=== PATIENT | male | born 1945 | race Caucasian/White ===

== ENCOUNTER 2020-07-30 15:55 | Inpatient (IN) | payer MEDICARE, OTHER, SELFPAY ==
[2020-07-30] VITALS (9 sets, daily range): BP systolic 106–140; BP diastolic 59–89; PULSE 74–95; RESP 13–23; TEMP 36.3; O2SAT 84–99; BMI 26.4
--- NOTE | ~2020-07-30 | CT_ITS ---
EXAMINATION: CTA chest PE protocol EXAM DATE: 07/31/2020 14:06 INDICATION: Hypoxia. COVID 19 positive. TECHNIQUE: Spiral CTA of the chest (pulmonary arteries) was performed with 100 cc Omnipaque 350 intr avenous contrast injection. Images were acquired during the pulmonary arterial phase. Coronal maxi mum intensity projection 3D-reconstructions were created by the technologist on dedicated workstation . Axial, coronal and sagittal reformatted images were reviewed. The dose-length product (DLP) for t his examination was 679.75 mGy-cm. The exposure was tailored according to patient size (auto mA exp osure control), and iterative reconstruction (ASIR) was used as additional dose reduction technique. There is no prior study for comparison. FINDINGS: There are no pulmonary emboli in the 1st through 3rd order (central and interlobar) pulmon joseph arteries. Some loss of attenuation in the basilar segmental pulmonary from respiratory motion, t hese regions not confidently evaluated. No Intraluminal filling defects identified. No thoracic aor tic dissection. Extensive left lung, moderate right lung groundglass airspace disease, infection and /or edema. There are no pleural or pericardial effusions. Tracheobronchial tree is patent. Ther e is no mediastinal, hilar or axillary lymphadenopathy. There is no pneumothorax. Heart normal in size. No evidence of coronary arterial calcification. Upper abdomen is unremarkable. There is t horacic spondylosis without osteoblastic or osteolytic lesions identified. IMPRESSION: 1. Limited segmental evaluation, but no pulmonary emboli are suspected. 2. Diffuse groundglass density acute airspace disease, infection and/or edema. Reviewed, dictated and finalized at location A.
--- NOTE | ~2020-07-30 | XR_ITS ---
EXAMINATION: XR chest 1V portable INDICATION: COVID 19 pneumonia TECHNIQUE: Portable AP chest at 0511 hours COMPARISON: 08/08/2020 FINDINGS: The endotracheal tube ends approximately 5.6 cm above the ministerio. The nasogastric tube is f ollowed as far as the stomach. Its tip is beyond the inferior margin of the radiograph. A right inter nal jugular central venous catheter ends with its tip in the superior vena cava. A left upper extremi ty PICC ends with its tip in the proximal superior vena cava. There are diffuse opacities in all lung zones with interval worsening in the mid and upper lung zones. There is no pleural effusion or pneum othorax. The cardiomediastinal silhouette is stable. IMPRESSION: 1. Diffuse lung disease with interval worsening, consistent with pneumonia and/or pulmonary edema and /or acute respiratory distress syndrome (ARDS). Reviewed, dictated and finalized at location A. IMPRESSION: 1. Diffuse lung disease with interval worsening, consistent with pneumonia and/ or pulmonary edema and/or acute respiratory distress syndrome (ARDS).
--- NOTE | ~2020-07-30 | XR_ITS ---
EXAMINATION: XR chest 1V portable INDICATION: COVID 19 pneumonia TECHNIQUE: Portable AP chest at 0526 hours COMPARISON: 08/09/2020 FINDINGS: The endotracheal tube ends approximately 6.1 cm above the ministerio. The nasogastric tube is f ollowed as far as the stomach. Its tip is beyond the inferior margin of the radiograph. A left upper showed a PICC ends with its tip in the proximal superior vena cava. A right internal jugular central venous catheter ends in the midsuperior vena cava. Diffuse opacities persist in all lung zones with i nterval worsening. There is no pleural effusion or pneumothorax. The cardiomediastinal silhouette is stable. IMPRESSION: 1. Diffuse lung disease with interval worsening in all lung zones, consistent with pneumonia and/or p ulmonary edema and/or acute respiratory distress syndrome (ARDS). Reviewed, dictated and finalized at location A. IMPRESSION: 1. Diffuse lung disease with interval worsening in all lung zones, consistent w ith pneumonia and/or pulmonary edema and/or acute respiratory distress syndrome (ARDS).
--- NOTE | ~2020-07-30 | XR_ITS ---
XR abdomen NG/feed tube insert DATE: 08/05/2020 09:44 INDICATION: Orogastric tube placement TECHNIQUE: Portable supine AP view COMPARISON: None FINDINGS: The orogastric tube extends into the gastric fundus a short distance, the proximal spine po rt in the lower chest. Advancement of the tube is recommended. Nonspecific bowel gas pattern, without apparent obstruction. IMPRESSION: Orogastric tube in very proximal stomach, proximal side-port in lower chest. Tube advance ment is recommended. Reviewed, dictated and finalized at Location A. Reviewed, dictated and finalized at location A. IMPRESSION: Orogastric tube in very proximal stomach, proximal side-port in low er chest. Tube advancement is recommended.
--- NOTE | ~2020-07-30 | XR_ITS ---
XR chest 1V portable 08/03/2020 14:46 Indication: Pneumonia. Shortness of breath Procedure: AP portable chest Comparison: 07/30/2020 Findings: Patchy bilateral airspace disease, left greater than right, compatible with pneumonia. No s ignificant effusion or pneumothorax. Calcified granuloma right lung base. Impression: 1: Patchy bilateral asymmetric airspace disease, compatible with pneumonia. Reviewed, dictated and finalized at location B. Impression: 1: Patchy bilateral asymmetric airspace disease, compatible with pneumonia.
--- NOTE | ~2020-07-30 | XR_ITS ---
EXAMINATION: XR chest PICC line DATE: 08/04/2020 16:59 INDICATION: PICC line placement TECHNIQUE: frontal view of the chest was obtained. COMPARISON: Chest radiograph dated 08/03/2020 FINDINGS: Left upper extremity peripherally inserted central venous catheter (PICC) which extends across the mi dline with distal tip likely at the junction of the left brachiocephalic vein and superior vena cava. Pulmonary vascular congestion with diffuse increased interstitial pattern throughout both lungs. Agai n seen are bilateral patchy groundglass opacities scattered throughout both lungs. Calcified nodule a t the right lung base and calcified right hilar lymph node consistent with old granulomatous disease. The cardiomediastinal silhouette is normal. IMPRESSION: 1. Left upper extremity PICC line tip at the junction of the left brachiocephalic vein and superior v ammon cava. 2. Diffuse increased interstitial pattern and patchy groundglass opacities in both lungs which could represent pulmonary edema and/or pneumonia. Reviewed, dictated and finalized at location A. IMPRESSION: 1. Left upper extremity PICC line tip at the junction of the left brachiocephal ic vein and superior vena cava. 2. Diffuse increased interstitial pattern and patchy groundglass opacities in b oth lungs which could represent pulmonary edema and/or pneumonia.
--- NOTE | ~2020-07-30 | XR_ITS ---
EXAMINATION: XR chest 1V portable INDICATION: COVID 19 pneumonia TECHNIQUE: Portable AP chest at 0533 hours COMPARISON: 08/06/2020 FINDINGS: The endotracheal tube ends approximately 6.9 cm above the ministerio. The nasogastric tube is f ollowed as far as the stomach. Its tip is beyond the inferior margin of the radiograph. There are sta ble diffuse opacities in all lung zones, left greater than right. No pleural effusion or pneumothorax is identified. A left upper extremity PICC ends with its tip in the proximal superior vena cava. IMPRESSION: 1. Stable diffuse lung disease, consistent with pneumonia and/or pulmonary edema and/or acute respira tory distress syndrome (ARDS). Reviewed, dictated and finalized at location A. IMPRESSION: 1. Stable diffuse lung disease, consistent with pneumonia and/or pulmonary maco a and/or acute respiratory distress syndrome (ARDS).
--- NOTE | ~2020-07-30 | XR_ITS ---
XR chest ET placement DATE: 08/05/2020 09:44 INDICATION: ET and NG tube placement TECHNIQUE: Portable AP view on 08/05/2020 at 0930 hours COMPARISON: 08/05/2020 portable AP chest at 0528 hours FINDINGS: Interval placement of ET tube, distal tip 5.4 cm above ministerio. [place] range is 205 cm. An NG tube is noted in the proximal stomach. Left upper stomach the catheter tip overlies the proximal superior vena cava. Patchy bilateral mid and lower lung zone infiltrates, left greater than right. Heart size appears within normal range. No pneumothorax is noted. IMPRESSION: ET and NG tube placement Persistent patchy bilateral pulmonary infiltrates Reviewed, dictated and finalized at Location A. Reviewed, dictated and finalized at location A.
--- NOTE | ~2020-07-30 | XR_ITS ---
EXAMINATION: XR chest 1V portable INDICATION: COVID 19 pneumonia TECHNIQUE: Portable AP chest at 0139 hours COMPARISON: 08/07/2020 FINDINGS: The endotracheal tube ends approximately 6.1 cm above the ministerio. The nasogastric tube is f ollowed as far as the stomach. Its tip is beyond the inferior margin of the radiograph. Patchy bilate ral airspace opacities persist in all lung zones with slight improvement in the upper lung zones. The re is no pleural effusion or pneumothorax. The cardiomediastinal silhouette is stable. A left upper e xtremity PICC ends in the proximal superior vena cava. IMPRESSION: 1. Diffuse lung disease with interval improvement in the upper lung zones, consistent with pneumonia and/or pulmonary edema and/or acute respiratory distress syndrome (ARDS). Reviewed, dictated and finalized at location A. IMPRESSION: 1. Diffuse lung disease with interval improvement in the upper lung zones, cons istent with pneumonia and/or pulmonary edema and/or acute respiratory distress syndrome (ARDS).
--- NOTE | ~2020-07-30 | XR_ITS ---
EXAMINATION: XR chest 1V portable EXAM DATE: 07/30/2020 16:32 INDICATION: hypoxia, COVID +, fever, chills shortness of breath, decreased appetite. TECHNIQUE: Portable AP frontal chest x-ray was obtained. There is no prior study for comparison. FINDINGS: Ill-defined left mid and lower lung zone airspace disease, could be combination of infectio n and atelectasis. Right basilar granuloma. No pneumothorax or pleural effusion. The cardiomediastina l silhouette is prominent but magnified on this AP technique. There are no osseous abnormalities iden tified. IMPRESSION: 1. Ill-defined left mid and lower lung zone opacity probably infection and atelectasis. Reviewed, dictated and finalized at location A. IMPRESSION: 1. Ill-defined left mid and lower lung zone opacity probably infection and at electasis.
--- NOTE | ~2020-07-30 | XR_ITS ---
EXAMINATION: XR chest port-a-cath/central INDICATION: Central line insertion TECHNIQUE: Portable AP view of the chest is obtained at 1126 hours COMPARISON: 0139 hours FINDINGS: A right internal jugular central venous catheter is been inserted which ends with its tip i n the superior vena cava. The endotracheal tube ends approximately 8.0 cm above the ministerio. The nasog astric tube is followed as far as the stomach. Its tip is beyond the inferior margin of the radiograp h. A left upper extremity PICC ends with its tip in the proximal superior vena cava. Patchy bilateral airspace opacities persist in all lung zones without significant change. There is no pleural effusio n or pneumothorax. The cardiomediastinal silhouette is stable. IMPRESSION: 1. Right internal jugular catheter inserted ending in the superior vena cava without pneumothorax. Ot herwise no significant change. Reviewed, dictated and finalized at location A. IMPRESSION: 1. Right internal jugular catheter inserted ending in the superior vena cava wi thout pneumothorax. Otherwise no significant change.
--- NOTE | ~2020-07-30 | XR_ITS ---
XR chest 1V portable DATE: 08/05/2020 05:56 INDICATION: Covid 19 pneumonia TECHNIQUE: Portable AP chest on 08/05/2020 at 0527 hours COMPARISON: 08/04/2020 portable AP chest at 1656 hours FINDINGS: There is no significant interval change in diffuse interstitial prominence and patchy mid a nd lower lung infiltrates since 08/04/2020. Normal heart size. There is slight if any pleural effusion. No pneumothorax. Left upper extremity PIC catheter tip situated near origin of superior vena cava. IMPRESSION: Bilateral infiltrates; no significant change since 08/04/2020 Reviewed, dictated and finalized at location A.
--- NOTE | ~2020-07-30 | XR_ITS ---
EXAMINATION: XR chest 1V portable INDICATION: COVID 19 pneumonia, acute respiratory failure TECHNIQUE: Portable AP chest at 0524 hours COMPARISON: 08/05/2020 FINDINGS: The endotracheal tube ends approximately 5.8 cm above the ministerio. A nasogastric tube is in the stomach. Diffuse opacities persist in all lung zones, left greater than right, without significan t change. There is no pleural effusion or pneumothorax. A left upper extremity PICC ends with its tip in the proximal superior vena cava. IMPRESSION: 1. Stable diffuse lung disease, consistent with pneumonia and/or pulmonary edema and/or acute respira tory distress syndrome (ARDS). Reviewed, dictated and finalized at location A. IMPRESSION: 1. Stable diffuse lung disease, consistent with pneumonia and/or pulmonary maco a and/or acute respiratory distress syndrome (ARDS).
--- NOTE | 2020-07-30 16:22 | ECG_ITS ---
Measurements Intervals [place] Rate: 86 P: 178 MT: 138 QRS: 222 QRSD: 98 T: 165 QT: 347 QTc: 416 Interpretive Statements SINUS RHYTHM ARM LEADS REVERSED DELAYED PRECORDIAL R/S TRANSITION ATYPICAL ECG Electronically Signed On 07-30-2020 16:36:16 CDT by Jigar Bowen D.O.
[2020-07-30 18:30] LABS: Basophils Percent Auto 0.1 % (0.2-1.2); Hematocrit 48.8 % (42.0-52.0); Hemoglobin 16.9 g/dL (14.0-18.0); Immature Granulocyte Absolute 0.04 K/mm3 (0.00-0.031); Immature Granulocyte Percent A 0.6 % (0-0.5); Lymphocytes Absolute Auto 0.77 K/mm3 (0.9-3.2); Lymphocytes Percent Auto 10.6 % (18.3-44.2); Mean Corpuscular HGB Conc 34.6 g/dl (32-36); Mean Corpuscular Hemoglobin 31.7 pg (26-34); Mean Corpuscular Volume 91.6 fl (80-100); Mean Platelet Volume 11.2 fl (7.4-10.4); Monocytes Absolute Auto 0.3 K/mm3 (0.1-0.6); Monocytes Percent Auto 3.7 % (2.6-8.5); Neutrophils Absolute Auto 6.2 K/mm3 (1.3-6.7); Platelet Count Result 165 k/mm3 (150-375); Red Blood Count 5.33 M/mm3 (4.6-6.20); Red Cell Distribution Width 12.3 % (11.5-14.5); White Blood Count 7.2 K/mm3 (4.5-10.0)
[2020-07-30 18:39] LABS: INR 0.9; Prothrombin Time 12.9 Seconds (11.1-14.7)
[2020-07-30 18:40] LABS: Partial Thromboplastin Time 31.8 SECONDS (22.3-36.8)
[2020-07-30 18:42] LABS: Lactic Acid Reflex 1.4 mmol/L (0.7-2.1)
[2020-07-30 18:44] LABS: Alanine Aminotransferase 31 U/L (4-50); Albumin Level 3.5 g/dL (3.5-5.1); Alkaline Phosphatase 60 U/L (38-126); Anion Gap 4 mmol/L (8-16); Aspartate Amino Transferase 62 U/L (17-59); Bilirubin,Total 1.1 mg/dL (0.2-1.3); Blood Urea Nitrogen 34 mg/dL (9-20); CRP 6.3 mg/dL (<1.0); Calcium 8.4 mg/dL (8.4-10.2); Carbon Dioxide 31 mmol/L (22-30); Chloride 98 mmol/L (98-107); Estimated CRCL calculation 58 ml/min; Estimated Glomerular Filt Rate 59; Glucose 101 mg/dL (75-110); Sodium 133 mmol/L (137-145)
[2020-07-30 19:09] LABS: Alveolar/Arterial O2 Gradient 213.2 mmHg; Base Excess ABG 0.2 mEq/l (+/-2.0); Fractional Inspired Oxygen 44 %; HCO3 ABG 23.6 mEq/l (22.0-26.0); Oxygen Content ABG 21.4 %vol (16.0-22.0); Oxygen Saturation ABG 92.5 % (95.0-100.0); Oxyhemoglobin 90.9 % THb (90.0-100.0); PCO2 ABG 34.9 mmHg (35.0-45.0); PO2 ABG 60.7 mmHg (80.0-100.0); PO2 FiO2 Ratio Arterial Blood 1.38 %; Total Hemoglobin 16.8 g/dL (12.0-18.0); pH ABG 7.448 (7.350-7.450)
[2020-07-30 19:10] LABS: Device NASAL CANNULA; Modified Allen's Test Pass; Site Drawn RIGHT RADIAL
--- NOTE | 2020-07-30 19:19 | PC.NURSE ---
Assumed care of pt. at this time. Report from MARIELOS Zhang
--- NOTE | 2020-07-30 19:34 | WPDEDEXPGENP ---
HPI - General Ped General Chief complaint: Fever Stated complaint: covid +, 20 lb weight loss Time Seen by Provider: 07/30/20 17:16 Source: patient Mode of arrival: ambulatory Limitations: no limitations History of Present Illness HPI narrative: Patient 75 years old white male this is positive for COVID-19 this morning. Patient still me that he been sick with respiratory symptoms, fever, chills and coughing for the last 2 weeks. Was seen at urgent care on July 21 and was started on Z-Micky at that time. Patient denies exposure to anybody known having COVID-19. Patient declined COVID-19 vaccination because he have some reaction to the flu vaccine. Patient denies smoking Related Data Home Medications Medication Instructions Recorded Confirmed loratadine 10 mg 07/30/20 omeprazole 20 mg PO DAILY 07/30/20 07/30/20 Allergies Allergy/AdvReac Type Severity Reaction Status Date / Time tetracycline Allergy Chills Verified 07/30/20 16:15 Pediatric Review of Systems : Review of Systems: CONSTITUTIONAL: Denies fever, chills, or sweats. EYES: Denies visual changes, redness, or discharge. ENT: Denies rhinorrhea, congestion, sore throat, or otalgia. CARDIOVASCULAR: Denies chest pain, palpitations, or edema. RESPIRATORY: Denies cough or dyspnea. GASTROINTESTINAL: Denies abdominal pain, nausea, vomiting, or diarrhea. GENITOURINARY: Denies dysuria or hematuria. SKIN: Denies rash or itching. MUSCULOSKELETAL: Denies back pain, joint pain, or myalgia. NEUROLOGIC: Denies headache, numbness, or weakness. PSYCHIATRIC: Denies anxiety or depression. PMFSH Social History Social History Gender identity (if verbalized by the patient): Male Pediatric Exam Narrative: Physical exam: General appearance: Well-developed, well-nourished, patient looks comfortable, not in pain or distress. No family member at the bedside Skin: Normal color Head: Normocephalic, nontraumatic Eyes: Clear conjunctiva ENT: Oropharynx normal, ears normal, nose normal Neck: Supple, nontender Chest and respiratory: Airway patent, no respiratory distress, mild diminishment of air entry bilaterally mainly at the bases. No rhonchi, no wheezing Heart: Regular rate/rhythm Abdomen: Soft, nontender, no organomegaly, quiet bowel sounds Vascular: Normal peripheral pulses, normal capillary refill. 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, no gross motor deficit Course Course Emergency Course: Stable Vital Signs Vital signs: Vital Signs Temperature 36.3 C L 07/30/20 15:58 Pulse Rate 95 07/30/20 15:58 Respiratory Rate 20 07/30/20 15:58 Blood Pressure 110/59 L 07/30/20 15:58 Pulse Oximetry 88 L 07/30/20 15:58 Temperature 36.3 C L 07/30/20 15:58 Pulse Rate 76 07/30/20 19:18 Respiratory Rate 17 07/30/20 18:00 Blood Pressure 117/74 07/30/20 19:18 Pulse Oximetry 92 07/30/20 19:18 Medical Decision Making Vital Signs Vital Signs: Vital Signs Temperature 36.3 C L 07/30/20 15:58 Pulse Rate 95 07/30/20 15:58 Respiratory Rate 20 07/30/20 15:58 Blood Pressure 110/59 L 07/30/20 15:58 Pulse Oximetry 88 L 07/30/20 15:58 Temperature 36.3 C L 07/30/20 15:58 Pulse Rate 76 07/30/20 19:18 Respiratory Rate 17 07/30/20 18:00 Blood Pressure 117/74 07/30/20 19:18 Pulse Oximetry 92 07/30/20 19:18 Lab Data Result diagrams: 07/30/20 18:23 07/30/20 18:23 Labs: Lab Results 07/30/20 07/30/20 07/30/20 Range/Units 18:23 18:23 18:23 WBC 7.2 (4.5-10.0) K/mm3 RBC 5.33 (4.6-6.20)
[2020-07-30] MEDS: SODIUM CHLORIDE 0.9% IV 1,000 ML 500 ML IV CONT (20:32)
--- NOTE | 2020-07-30 20:33 | PC.NURSE ---
called pharmacy about medication. States they are in the process now to make it.
--- NOTE | 2020-07-30 20:35 | PC.NURSE ---
Spoke w/ pt. Haydee to update on pt. status. [phone]
[2020-07-30] MEDS: REMDESIVIR 200 MG/NS 250 ML 200 MG/250 ML BAG 250 MG IVPB (21:03)
[2020-07-30 22:12] LABS: Alanine Aminotransferase 34 U/L (4-50); Estimated CRCL calculation 63 ml/min; Estimated Glomerular Filt Rate > 60
[2020-07-30 22:17] LABS: INR 0.9; Prothrombin Time 13.1 Seconds (11.1-14.7)
--- NOTE | 2020-07-30 22:34 | ADMGEN ---
This patient, Gage Witt, was admitted to IMU Room 210-01, at 2225 from the Emergency department. Patient/family oriented to hospital policies and general routines including ID bracelet, bed and alarms, visiting hours, pain management, procedures, bathroom and other care routines, personal items, smoking policy, room service/diet, and visiting hours. Information on how to activate the Rapid Response Team has been discussed. Patient/Family are encouraged to report perceived risks to care and to ask questions if they do not understand what they are told or what they should do.
--- NOTE | 2020-07-30 22:37 | ADMGEN ---
This patient, Gage Witt, was admitted to IMU Room 210-01. Patient/family oriented to hospital policies and general routines including ID bracelet, bed and alarms, visiting hours, pain management, procedures, bathroom and other care routines, personal items, smoking policy, room service/diet, and visiting hours. Information on how to activate the Rapid Response Team has been discussed. Patient/Family are encouraged to report perceived risks to care and to ask questions if they do not understand what they are told or what they should do. Melodie ARCEO 2200 arrived
--- NOTE | 2020-07-30 23:58 | PM.IMHP ---
H&P: HPI History of Present Illness Date/Time: 07/30/20 23:30 this is a 75-year-old male patient who has no past medical history except for some acid reflux. The patient stated that he has been feeling poorly for at least 2 weeks. He said he has been running fevers on and off for 2 weeks. The patient thought that he just had an upper respiratory infection and did not seek any medical attention for this. The patient has been taking Tylenol at home. The patient stated that he is fever and chills. With a T-max of 101?. He has a cough and body aches. The patient is feeling very weak. The patient went to an urgent care facility about a week ago and was given a Z-Micky and offered a COVID test at that time and the patient refused..july 21 the patient was started on the Z-Micky. The patient did not receive his COVID-19 vaccine because he was afraid he would have a reaction to it since he had a reaction to the flu vaccine. Patient is a nonsmoker. The patient denies any exposure to COVID-19. The patient stated that his went to [facility] a COVID test which was a rapid home test and it came back positive. On REM does severe and Tylenol.Radiology is ill-defined left mid and lower lung zone opacities probably infection in atelectasis. When the patient came To the emergency room his pulse ox was 84-88%. The patient was placed on 6 L per nasal cannula. The patient had gotten up in his room and desatted down to 75%. We had to bump up to 15 L per nasal cannula. The patient had attempted to get out of bed and we explained to the patient he needs to stay in bed and be on bed rest. We offered him a Rodriguez catheter. We also explained that he needed to be prone every 2 hours. The patient is quite anxious at this time. Services on the date of service of 07/30/2020. Chief Complaint: Dyspnea with positive COVID. Review of Systems Review of Systems: All systems reviewed & are unremarkable except as noted in HPI and below Constitutional: Constitutional: Reports as per HPI and Reports no additional constitutional complaints Eyes: Eyes: Reports as per HPI and Reports no additional eye complaints ENT: Reports system reviewed and no additional complaints, except as documented and Reports Normal hearing present Cardiovascular: Cardiovascular: Reports no additional cardiovascular complaints Respiratory: Respiratory: Reports no additional respiratory complaints and Reports no additional respiratory complaints Gastrointestinal: Gastrointestinal: Reports as per HPI and Reports no additional gastrointestinal complaints Musculoskeletal: Musculoskeletal: Reports no additional musculoskeletal complaints Integumentary/Breasts: Skin/Breast: Reports system reviewed and no additional complaints, except as docu and Reports as per HPI Neurologic: Reports system reviewed and no additional complaints, except as documented, Reports as per HPI and Reports Normal hearing present Psychiatric: Psychiatric: Reports no additional psychiatric complaints and Reports as per HPI Endocrine: Endocrine: Reports no additional endocrine complaints Hematologic/Lymphatic: Hematologic/Lymphatic: Reports no additional hematologic/lymphatic complaints Allergic/Immunologic: Allergic/Immunologic: Reports no additional allergic/immunologic complaints [facility] Past Medical History Medical History (Updated 07/31/20 @ 00:06 by Beatrice Kerns NP) Chronic GERD History of prostate cancer Seasonal allergies Surgical History Surgical History (Updated 07/31/20 @ 00:06 by Beatrice Kerns NP) H/O hernia repair X2 History of appendectomy History of prostatectomy S/P tonsillectomy and adenoidectomy Family History Family History (Updated 07/31/20 @ 00:07 by Beatrice Kerns NP) Mother Breast cancer Father Emphysema lung Social History Social History (Updated 07/31/20 @ 00:08 by Beatrice Kerns NP) Social History: The patient is retired from being self-employed. Th
[2020-07-31] VITALS (25 sets, daily range): BP systolic 99–149; BP diastolic 57–74; PULSE 71–94; RESP 16–24; TEMP 36.1–37.1; O2SAT 83–100; BMI 26.4
[2020-07-31] MEDS: guaiFENesin/DEXTROMETHORPHAN 10 ML UDC PO (01:32)
[2020-07-31] MEDS: ALBUTEROL SULFATE (*SP) AEROSOL 1 PUFF 2 PUFF INHALATION ×4 (02:00→20:30)
[2020-07-31 05:00] LABS: Basophils Percent Auto 0.1 % (0.2-1.2); Hematocrit 44.3 % (42.0-52.0); Hemoglobin 15.6 g/dL (14.0-18.0); Immature Granulocyte Absolute 0.04 K/mm3 (0.00-0.031); Immature Granulocyte Percent A 0.6 % (0-0.5); Lymphocytes Absolute Auto 0.58 K/mm3 (0.9-3.2); Lymphocytes Percent Auto 8.3 % (18.3-44.2); Mean Corpuscular HGB Conc 35.2 g/dl (32-36); Mean Corpuscular Hemoglobin 31.2 pg (26-34); Mean Corpuscular Volume 88.6 fl (80-100); Mean Platelet Volume 11.1 fl (7.4-10.4); Monocytes Absolute Auto 0.3 K/mm3 (0.1-0.6); Monocytes Percent Auto 3.7 % (2.6-8.5); Neutrophils Absolute Auto 6.1 K/mm3 (1.3-6.7); Neutrophils Percent Auto 87.3 % (45.5-73.1); Platelet Count Result 167 k/mm3 (150-375); Red Cell Distribution Width 11.9 % (11.5-14.5)
[2020-07-31 05:09] LABS: INR 0.9; Prothrombin Time 13.2 Seconds (11.1-14.7)
[2020-07-31 05:27] LABS: Alanine Aminotransferase 34 U/L (4-50); Alkaline Phosphatase 70 U/L (38-126); Anion Gap 5 mmol/L (8-16); Aspartate Amino Transferase 67 U/L (17-59); Bilirubin,Total 0.8 mg/dL (0.2-1.3); Blood Urea Nitrogen 29 mg/dL (9-20); Calcium 7.7 mg/dL (8.4-10.2); Carbon Dioxide 30 mmol/L (22-30); Chloride 100 mmol/L (98-107); Estimated CRCL calculation 68 ml/min; Estimated Glomerular Filt Rate > 60; Glucose 112 mg/dL (75-110); Magnesium 1.8 mg/dL (1.6-2.3); Potassium 3.8 mmol/L (3.4-5.0); Sodium 135 mmol/L (137-145)
[2020-07-31 05:54] LABS: Lactate Dehydrogenase 985 U/L (313-618)
[2020-07-31] MEDS: PANTOPRAZOLE SOD SESQUIHYDRATE 20 MG TAB PO (09:15)
[2020-07-31] MEDS: ENOXAPARIN 40 MG/0.4 ML SYRINGE SUB-Q ×2 (09:15→20:29)
[2020-07-31] MEDS: DEXAMETHASONE SOD PHOS INJ 4 MG/ML VIAL 6 MG IV PUSH (09:15)
[2020-07-31] MEDS: ALBUTEROL SULFATE (*SP) INHALER 1 PUFF (09:16)
--- NOTE | 2020-07-31 13:39 | PM.IMPN ---
Progress Note: A&P Assessment and Plan (1) COVID-19 virus infection: Code(s): U07.1 - COVID-19 Status: Acute Assessment and Plan: Continue With Decadron, REMdesivir, albuterol inhaler, titrate oxygen on Airvo as needed, and incentive spirometer. We discussed vitamin C and zinc but the patient is stating he does not want to take those at this time. I explained to the patient that he needs to limit his activity and do pronation every 2 hours. The patient insists on getting up and his oxygen level dropped down the 85% when he got up in the room. The patient is on high-flow at this time. He is slowly recovering from getting up. I explained that the patient needs to use his urinal at the bedside. The patient is very insistent on getting up. I explained that the patient has higher oxygen demand needs to stay in bed. I also offered him a Rodriguez catheter. We had discussed intubation as well. The patient stated that he would be intubated but does not want to live in a vegetative state. I ordered Tylenol for the fever or mild pain. Incentive spirometer. Albuterol inhaler. The patient stated that he tested positive at home with a home test from [employer]. 07/31/20 13:39 07/31 patient was started on dexamethasone on 07/30 05/16 and Remdesivir 05/11 patient still requiring 15 L high-flow nasal cannula and complains of shortness of breath and fatigue, patient has agreed to take convalescent plasma will also give vitamin-C and D as well as zinc, and start Symbicort. will continue to monitor and further recommendation to follow (2) Acute respiratory failure with hypoxia: Code(s): J96.01 - Acute respiratory failure with hypoxia Status: Acute Assessment and Plan: We did place the patient on high-flow 15 L per nasal cannula and we also discussed placing the patient on Airvo. The patient is a mouth breather so we may also consider putting him on a BiPAP. However I do not see the patient tolerating this as he is wanting to get up out of bed. We reiterated the importance of staying in bed as much as possible. Did order CT a pulmonary. (3) Seasonal allergies: Code(s): J30.2 - Other seasonal allergic rhinitis Status: Chronic Assessment and Plan: I am going to hold his Elena diet at this time. (4) Chronic GERD: Code(s): K21.9 - Gastro-esophageal reflux disease without esophagitis Status: Chronic Assessment and Plan: Continue with omeprazole. Subjective Date/time seen: 07/31/20 13:39 Continue With Decadron, REMdesivir, albuterol inhaler, titrate oxygen on Airvo as needed, and incentive spirometer. We discussed vitamin C and zinc but the patient is stating he does not want to take those at this time. I explained to the patient that he needs to limit his activity and do pronation every 2 hours. The patient insists on getting up and his oxygen level dropped down the 85% when he got up in the room. The patient is on high-flow at this time. He is slowly recovering from getting up. I explained that the patient needs to use his urinal at the bedside. The patient is very insistent on getting up. I explained that the patient has higher oxygen demand needs to stay in bed. I also offered him a Rodriguez catheter. We had discussed intubation as well. The patient stated that he would be intubated but does not want to live in a vegetative state. I ordered Tylenol for the fever or mild pain. Incentive spirometer. Albuterol inhaler. The patient stated that he tested positive at home with a home test from [facility]. 07/31 patient was started on dexamethasone on 07/30 05/16 and Remdesivir 05/11 patient still requiring 15 L high-flow nasal cannula and complains of shortness of breath and fatigue, patient has agreed to take convalescent plasma will also give vitamin-C and D as well as zinc, and start Symbicort. will continue to monitor and further recommendation to follow Review of Systems Review of Syst
[2020-07-31] MEDS: ASCORBIC ACID 500 MG TABLET PO (14:31)
[2020-07-31] MEDS: CHOLECALCIFEROL 1,000 UNITS TABLET 1000 UNITS PO (14:31)
[2020-07-31] MEDS: ZINC SULFATE 220 MG CAPSULE PO (18:27)
[2020-07-31] MEDS: TUBING, BLOOD PLUM PUMP TUBING 1 EACH XX (21:50)
[2020-07-31] MEDS: SODIUM CHLORIDE 0.9% IV 250 ML 30 ML IV CONT (21:50)
[2020-07-31] MEDS: REMDESIVIR 100 MG/NS 250 ML 100 MG/250 ML BAG 250 MG IVPB (22:15)
[2020-08-01] VITALS (19 sets, daily range): BP systolic 113–137; BP diastolic 53–76; PULSE 71–109; RESP 20–24; TEMP 36.2–36.7; O2SAT 91–98
[2020-08-01] MEDS: ALBUTEROL SULFATE (*SP) AEROSOL 1 PUFF 2 PUFF INHALATION ×4 (02:00→21:06)
[2020-08-01 05:26] LABS: Basophils Percent Auto 0.2 % (0.2-1.2); Hematocrit 41.7 % (42.0-52.0); Hemoglobin 14.7 g/dL (14.0-18.0); Immature Granulocyte Absolute 0.04 K/mm3 (0.00-0.031); Immature Granulocyte Percent A 0.6 % (0-0.5); Lymphocytes Absolute Auto 0.65 K/mm3 (0.9-3.2); Lymphocytes Percent Auto 9.8 % (18.3-44.2); Mean Corpuscular HGB Conc 35.3 g/dl (32-36); Mean Corpuscular Hemoglobin 31.1 pg (26-34); Mean Corpuscular Volume 88.2 fl (80-100); Mean Platelet Volume 11.4 fl (7.4-10.4); Monocytes Absolute Auto 0.3 K/mm3 (0.1-0.6); Monocytes Percent Auto 3.8 % (2.6-8.5); Neutrophils Absolute Auto 5.7 K/mm3 (1.3-6.7); Neutrophils Percent Auto 85.6 % (45.5-73.1); Platelet Count Result 169 k/mm3 (150-375); Red Blood Count 4.73 M/mm3 (4.6-6.20); Red Cell Distribution Width 12.1 % (11.5-14.5); White Blood Count 6.6 K/mm3 (4.5-10.0)
[2020-08-01 05:36] LABS: Prothrombin Time 13.6 Seconds (11.1-14.7)
[2020-08-01 05:47] LABS: Alanine Aminotransferase 37 U/L (4-50); Albumin Level 2.9 g/dL (3.5-5.1); Alkaline Phosphatase 69 U/L (38-126); Anion Gap 4 mmol/L (8-16); Aspartate Amino Transferase 65 U/L (17-59); Bilirubin,Total 0.9 mg/dL (0.2-1.3); Blood Urea Nitrogen 29 mg/dL (9-20); CRP 6.2 mg/dL (<1.0); Calcium 8.2 mg/dL (8.4-10.2); Carbon Dioxide 30 mmol/L (22-30); Chloride 101 mmol/L (98-107); Estimated CRCL calculation 68 ml/min; Estimated Glomerular Filt Rate > 60; Glucose 128 mg/dL (75-110); Potassium 3.6 mmol/L (3.4-5.0); Sodium 135 mmol/L (137-145)
[2020-08-01] MEDS: DEXAMETHASONE SOD PHOS INJ 4 MG/ML VIAL 6 MG IV PUSH (10:07)
[2020-08-01] MEDS: CHOLECALCIFEROL 1,000 UNITS TABLET 1000 UNITS PO (10:08)
[2020-08-01] MEDS: ASCORBIC ACID 500 MG TABLET PO (10:08)
[2020-08-01] MEDS: PANTOPRAZOLE SOD SESQUIHYDRATE 20 MG TAB PO (10:08)
[2020-08-01] MEDS: ZINC SULFATE 220 MG CAPSULE PO (10:08)
[2020-08-01] MEDS: ENOXAPARIN 40 MG/0.4 ML SYRINGE SUB-Q ×2 (10:08→21:05)
[2020-08-01] MEDS: BUDESONIDE/FORMOTEROL (*SP) 160-4.5 MCG 6 GM INH 2 PUFF INHALATION ×2 (10:15→21:06)
--- NOTE | 2020-08-01 14:31 | PM.IMPN ---
Progress Note: A&P Assessment and Plan (1) COVID-19 virus infection: Code(s): U07.1 - COVID-19 Status: Acute Assessment and Plan: 08/01/20 14:31 Continue With Decadron, REMdesivir, albuterol inhaler, titrate oxygen on Airvo as needed, and incentive spirometer. We discussed vitamin C and zinc but the patient is stating he does not want to take those at this time. I explained to the patient that he needs to limit his activity and do pronation every 2 hours. The patient insists on getting up and his oxygen level dropped down the 85% when he got up in the room. The patient is on high-flow at this time. He is slowly recovering from getting up. I explained that the patient needs to use his urinal at the bedside. The patient is very insistent on getting up. I explained that the patient has higher oxygen demand needs to stay in bed. I also offered him a Rodriguez catheter. We had discussed intubation as well. The patient stated that he would be intubated but does not want to live in a vegetative state. I ordered Tylenol for the fever or mild pain. Incentive spirometer. Albuterol inhaler. The patient stated that he tested positive at home with a home test from [employer]. 07/31/20 13:39 07/31 patient was started on dexamethasone on 07/30 05/16 and Remdesivir / patient still requiring 15 L high-flow nasal cannula and complains of shortness of breath and fatigue, patient has agreed to take convalescent plasma will also give vitamin-C and D as well as zinc, and start Symbicort. will continue to monitor and further recommendation to follow. 08/01/20 patient was started on dexamethasone on 07/30 06/13 and Remdesivir 06/08 and received convalescent plasma today, also receiving symbicort, vitamin C and D as well as zinc, if there no improvement tomorrow, will increase dexamethasone to 20mg daily for 5 days, patient still requiring 15 L high-flow nasal cannula and complains of shortness of breath and fatigue,as well as poor appetite, I spoke with patient and gave he all the updates. (2) Acute respiratory failure with hypoxia: Code(s): J96.01 - Acute respiratory failure with hypoxia Status: Acute Assessment and Plan: We did place the patient on high-flow 15 L per nasal cannula and we also discussed placing the patient on Airvo. The patient is a mouth breather so we may also consider putting him on a BiPAP. However I do not see the patient tolerating this as he is wanting to get up out of bed. We reiterated the importance of staying in bed as much as possible. Did order CT a pulmonary. (3) Seasonal allergies: Code(s): J30.2 - Other seasonal allergic rhinitis Status: Chronic Assessment and Plan: I am going to hold his Elena diet at this time. (4) Chronic GERD: Code(s): K21.9 - Gastro-esophageal reflux disease without esophagitis Status: Chronic Assessment and Plan: Continue with omeprazole. Subjective Date/time seen: 08/01/20 14:31 Continue With Decadron, REMdesivir, albuterol inhaler, titrate oxygen on Airvo as needed, and incentive spirometer. We discussed vitamin C and zinc but the patient is stating he does not want to take those at this time. I explained to the patient that he needs to limit his activity and do pronation every 2 hours. The patient insists on getting up and his oxygen level dropped down the 85% when he got up in the room. The patient is on high-flow at this time. He is slowly recovering from getting up. I explained that the patient needs to use his urinal at the bedside. The patient is very insistent on getting up. I explained that the patient has higher oxygen demand needs to stay in bed. I also offered him a Rodriguez catheter. We had discussed intubation as well. The patient stated that he would be intubated but does not want to live in a vegetative state. I ordered Tylenol for the fever or mild pain. Incentive spirometer. Albuterol inhaler. The patie
[2020-08-01] MEDS: REMDESIVIR 100 MG/NS 250 ML 100 MG/250 ML BAG 250 MG IVPB (21:05)
[2020-08-02] VITALS (16 sets, daily range): BP systolic 114–141; BP diastolic 64–84; PULSE 64–115; RESP 18–26; TEMP 36.1–36.9; O2SAT 91–99
[2020-08-02] MEDS: ALBUTEROL SULFATE (*SP) AEROSOL 1 PUFF 2 PUFF INHALATION ×4 (04:21→20:26)
[2020-08-02 05:35] LABS: Basophils Percent Auto 0.1 % (0.2-1.2); Hematocrit 45.6 % (42.0-52.0); Hemoglobin 15.5 g/dL (14.0-18.0); Immature Granulocyte Absolute 0.09 K/mm3 (0.00-0.031); Immature Granulocyte Percent A 0.7 % (0-0.5); Lymphocytes Absolute Auto 0.72 K/mm3 (0.9-3.2); Lymphocytes Percent Auto 5.6 % (18.3-44.2); Mean Corpuscular Hemoglobin 31.1 pg (26-34); Mean Corpuscular Volume 91.4 fl (80-100); Mean Platelet Volume 11.5 fl (7.4-10.4); Monocytes Absolute Auto 0.2 K/mm3 (0.1-0.6); Monocytes Percent Auto 1.6 % (2.6-8.5); Neutrophils Absolute Auto 11.9 K/mm3 (1.3-6.7); Platelet Count Result 184 k/mm3 (150-375); Red Blood Count 4.99 M/mm3 (4.6-6.20); Red Cell Distribution Width 12.1 % (11.5-14.5); White Blood Count 12.9 K/mm3 (4.5-10.0)
[2020-08-02 05:45] LABS: Alanine Aminotransferase 50 U/L (4-50); Albumin Level 2.9 g/dL (3.5-5.1); Alkaline Phosphatase 79 U/L (38-126); Anion Gap 2 mmol/L (8-16); Aspartate Amino Transferase 78 U/L (17-59); Bilirubin,Total 1.3 mg/dL (0.2-1.3); Blood Urea Nitrogen 31 mg/dL (9-20); Calcium 8.1 mg/dL (8.4-10.2); Carbon Dioxide 33 mmol/L (22-30); Chloride 98 mmol/L (98-107); Estimated CRCL calculation 76 ml/min; Estimated Glomerular Filt Rate > 60; Glucose 109 mg/dL (75-110); Potassium 3.5 mmol/L (3.4-5.0); Sodium 133 mmol/L (137-145)
[2020-08-02 06:04] LABS: Prothrombin Time 13.7 Seconds (11.1-14.7)
[2020-08-02] MEDS: BUDESONIDE/FORMOTEROL (*SP) 160-4.5 MCG 6 GM INH 2 PUFF INHALATION ×2 (08:00→20:26)
[2020-08-02] MEDS: ZINC SULFATE 220 MG CAPSULE PO (08:28)
[2020-08-02] MEDS: PANTOPRAZOLE SOD SESQUIHYDRATE 20 MG TAB PO (08:28)
[2020-08-02] MEDS: DEXAMETHASONE SOD PHOS INJ 4 MG/ML VIAL 6 MG IV PUSH (08:28)
[2020-08-02] MEDS: ASCORBIC ACID 500 MG TABLET PO (08:28)
[2020-08-02] MEDS: ENOXAPARIN 40 MG/0.4 ML SYRINGE SUB-Q ×2 (08:28→20:25)
[2020-08-02] MEDS: CHOLECALCIFEROL 1,000 UNITS TABLET 1000 UNITS PO (08:28)
[2020-08-02] MEDS: POTASSIUM CHLORIDE 20 MEQ TABLET 40 MEQ PO (11:01)
--- NOTE | 2020-08-02 17:31 | PM.IMPN ---
Progress Note: A&P Assessment and Plan (1) COVID-19 virus infection: Code(s): U07.1 - COVID-19 Status: Acute Assessment and Plan: 08/02/20 17:31 Continue With Decadron, REMdesivir, albuterol inhaler, titrate oxygen on Airvo as needed, and incentive spirometer. We discussed vitamin C and zinc but the patient is stating he does not want to take those at this time. I explained to the patient that he needs to limit his activity and do pronation every 2 hours. The patient insists on getting up and his oxygen level dropped down the 85% when he got up in the room. The patient is on high-flow at this time. He is slowly recovering from getting up. I explained that the patient needs to use his urinal at the bedside. The patient is very insistent on getting up. I explained that the patient has higher oxygen demand needs to stay in bed. I also offered him a Rodriguez catheter. We had discussed intubation as well. The patient stated that he would be intubated but does not want to live in a vegetative state. I ordered Tylenol for the fever or mild pain. Incentive spirometer. Albuterol inhaler. The patient stated that he tested positive at home with a home test from [employer]. 07/31 patient was started on dexamethasone on 07/30 05/16 and Remdesivir 05/11 patient still requiring 15 L high-flow nasal cannula and complains of shortness of breath and fatigue, patient has agreed to take convalescent plasma will also give vitamin-C and D as well as zinc, and start Symbicort. will continue to monitor and further recommendation to follow 08/01/20 patient was started on dexamethasone on 07/30 06/13 and Remdesivir 06/08 and received convalescent plasma today, also receiving symbicort, vitamin C and D as well as zinc, if there no improvement tomorrow, will increase dexamethasone to 20mg daily for 5 days, patient still requiring 15 L high-flow nasal cannula and complains of shortness of breath and fatigue,as well as poor appetite, I spoke with patient and gave he all the updates. 08/02/20 patient was started on dexamethasone on 07/30 07/14 and Remdesivir 07/09 and received convalescent plasma on 08/01 , also receiving symbicort, vitamin C and D as well as zinc, there is not improvement in patient oxygen requirement, will increase dexamethasone to 20mg daily today 08/02 for next 5 days, and continue to monitor and plan. (2) Acute respiratory failure with hypoxia: Code(s): J96.01 - Acute respiratory failure with hypoxia Status: Acute Assessment and Plan: We did place the patient on high-flow 15 L per nasal cannula and we also discussed placing the patient on Airvo. The patient is a mouth breather so we may also consider putting him on a BiPAP. However I do not see the patient tolerating this as he is wanting to get up out of bed. We reiterated the importance of staying in bed as much as possible. Did order CT a pulmonary. (3) Seasonal allergies: Code(s): J30.2 - Other seasonal allergic rhinitis Status: Chronic Assessment and Plan: I am going to hold his Elena diet at this time. (4) Chronic GERD: Code(s): K21.9 - Gastro-esophageal reflux disease without esophagitis Status: Chronic Assessment and Plan: Continue with omeprazole. Subjective Date/time seen: 08/02/20 17:31 Continue With Decadron, REMdesivir, albuterol inhaler, titrate oxygen on Airvo as needed, and incentive spirometer. We discussed vitamin C and zinc but the patient is stating he does not want to take those at this time. I explained to the patient that he needs to limit his activity and do pronation every 2 hours. The patient insists on getting up and his oxygen level dropped down the 85% when he got up in the room. The patient is on high-flow at this time. He is slowly recovering from getting up. I explained that the patient needs to use his urinal at the bedside. The patient is very insistent on getting up. I explained that the p
[2020-08-02] MEDS: REMDESIVIR 100 MG/NS 250 ML 100 MG/250 ML BAG 250 MG IVPB (21:48)
[2020-08-03] VITALS (22 sets, daily range): BP systolic 97–131; BP diastolic 47–85; PULSE 79–115; RESP 18–32; TEMP 36.2–36.7; O2SAT 84–97
[2020-08-03] MEDS: ALBUTEROL SULFATE (*SP) AEROSOL 1 PUFF 2 PUFF INHALATION ×4 (01:47→19:57)
[2020-08-03 05:25] LABS: Basophils Percent Auto 0.1 % (0.2-1.2); Hematocrit 43.1 % (42.0-52.0); Hemoglobin 15.2 g/dL (14.0-18.0); Immature Granulocyte Percent A 0.7 % (0-0.5); Lymphocytes Absolute Auto 0.53 K/mm3 (0.9-3.2); Lymphocytes Percent Auto 3.8 % (18.3-44.2); Mean Corpuscular HGB Conc 35.3 g/dl (32-36); Mean Corpuscular Hemoglobin 32.1 pg (26-34); Mean Corpuscular Volume 90.9 fl (80-100); Mean Platelet Volume 11.6 fl (7.4-10.4); Monocytes Absolute Auto 0.2 K/mm3 (0.1-0.6); Monocytes Percent Auto 1.1 % (2.6-8.5); Neutrophils Absolute Auto 13.1 K/mm3 (1.3-6.7); Neutrophils Percent Auto 94.3 % (45.5-73.1); Platelet Count Result 194 k/mm3 (150-375); Red Blood Count 4.74 M/mm3 (4.6-6.20); Red Cell Distribution Width 12.1 % (11.5-14.5); White Blood Count 13.9 K/mm3 (4.5-10.0)
[2020-08-03 05:40] LABS: Alanine Aminotransferase 64 U/L (4-50); Albumin Level 2.9 g/dL (3.5-5.1); Alkaline Phosphatase 88 U/L (38-126); Anion Gap 1 mmol/L (8-16); Aspartate Amino Transferase 79 U/L (17-59); Bilirubin,Total 1.4 mg/dL (0.2-1.3); Blood Urea Nitrogen 29 mg/dL (9-20); Calcium 8.3 mg/dL (8.4-10.2); Carbon Dioxide 34 mmol/L (22-30); Chloride 99 mmol/L (98-107); Estimated CRCL calculation 84 ml/min; Estimated Glomerular Filt Rate > 60; Glucose 121 mg/dL (75-110); Potassium 4.2 mmol/L (3.4-5.0); Sodium 134 mmol/L (137-145)
[2020-08-03 05:44] LABS: CRP 16.2 mg/dL (<1.0)
[2020-08-03 06:09] LABS: Prothrombin Time 14.2 Seconds (11.1-14.7)
[2020-08-03] MEDS: CHOLECALCIFEROL 1,000 UNITS TABLET 1000 UNITS PO (08:58)
[2020-08-03] MEDS: ENOXAPARIN 40 MG/0.4 ML SYRINGE SUB-Q ×2 (08:58→19:57)
[2020-08-03] MEDS: PANTOPRAZOLE SOD SESQUIHYDRATE 20 MG TAB PO (08:58)
[2020-08-03] MEDS: ASCORBIC ACID 500 MG TABLET PO (08:58)
[2020-08-03] MEDS: ZINC SULFATE 220 MG CAPSULE PO (08:58)
[2020-08-03] MEDS: BUDESONIDE/FORMOTEROL (*SP) 160-4.5 MCG 6 GM INH 2 PUFF INHALATION (09:00)
[2020-08-03] MEDS: ALPRAZolam (*CRX) 0.25 MG TABLET PO ×2 (11:45→19:58)
--- NOTE | 2020-08-03 14:19 | PM.IMPN ---
Progress Note: A&P Assessment and Plan (1) COVID-19 virus infection: Code(s): U07.1 - COVID-19 Status: Acute Assessment and Plan: 08/03/20 14:19 Continue With Decadron, REMdesivir, albuterol inhaler, titrate oxygen on Airvo as needed, and incentive spirometer. We discussed vitamin C and zinc but the patient is stating he does not want to take those at this time. I explained to the patient that he needs to limit his activity and do pronation every 2 hours. The patient insists on getting up and his oxygen level dropped down the 85% when he got up in the room. The patient is on high-flow at this time. He is slowly recovering from getting up. I explained that the patient needs to use his urinal at the bedside. The patient is very insistent on getting up. I explained that the patient has higher oxygen demand needs to stay in bed. I also offered him a Rodriguez catheter. We had discussed intubation as well. The patient stated that he would be intubated but does not want to live in a vegetative state. I ordered Tylenol for the fever or mild pain. Incentive spirometer. Albuterol inhaler. The patient stated that he tested positive at home with a home test from [facility]. 07/31 patient was started on dexamethasone on 07/30 05/16 and Remdesivir 05/11 patient still requiring 15 L high-flow nasal cannula and complains of shortness of breath and fatigue, patient has agreed to take convalescent plasma will also give vitamin-C and D as well as zinc, and start Symbicort. will continue to monitor and further recommendation to follow 08/01/20 patient was started on dexamethasone on 07/30 06/13 and Remdesivir 06/08 and received convalescent plasma today, also receiving symbicort, vitamin C and D as well as zinc, if there no improvement tomorrow, will increase dexamethasone to 20mg daily for 5 days, patient still requiring 15 L high-flow nasal cannula and complains of shortness of breath and fatigue,as well as poor appetite, I spoke with patient and gave he all the updates. 08/02/20 patient was started on dexamethasone on 07/30 07/14 and Remdesivir 07/09 and received convalescent plasma on 08/01 , also receiving symbicort, vitamin C and D as well as zinc, there is not improvement in patient oxygen requirement, will increase dexamethasone to 20mg daily today 08/02 for next 5 days, and continue to monitor and plan. 08/03 patient was started on dexamethasone on 07/30 07/14, today increase dexamethasone to 20mg daily for 1/5days and patient will complete 5 days course of Remdesivir today 08/08, will continue for another 5 days,and received convalescent plasma on 08/01 , also receiving symbicort, vitamin C and D as well as zinc, there is not much improvement in patient oxygen requirement, will consult supervisor public health nursing and further recommendation to follow (2) Acute respiratory failure with hypoxia: Code(s): J96.01 - Acute respiratory failure with hypoxia Status: Acute Assessment and Plan: We did place the patient on high-flow 15 L per nasal cannula and we also discussed placing the patient on Airvo. The patient is a mouth breather so we may also consider putting him on a BiPAP. However I do not see the patient tolerating this as he is wanting to get up out of bed. We reiterated the importance of staying in bed as much as possible. Did order CT a pulmonary. (3) Seasonal allergies: Code(s): J30.2 - Other seasonal allergic rhinitis Status: Chronic Assessment and Plan: I am going to hold his Elena diet at this time. (4) Chronic GERD: Code(s): K21.9 - Gastro-esophageal reflux disease without esophagitis Status: Chronic Assessment and Plan: Continue with omeprazole. Subjective Date/time seen: 08/03/20 14:19 Continue With Decadron, REMdesivir, albuterol inhaler, titrate oxygen on Airvo as needed, and incentive spirometer. We discussed vitamin C and zinc but the patient is stating he does not want to take those a
[2020-08-03 15:35] LABS: Alveolar/Arterial O2 Gradient 550.5 mmHg; Base Excess ABG 0.7 mEq/l (+/-2.0); Device HIGH FLOW THERAPY; Fractional Inspired Oxygen 90 %; HCO3 ABG 23.5 mEq/l (22.0-26.0); Modified Allen's Test Pass; Oxygen Content ABG 19.5 %vol (16.0-22.0); Oxyhemoglobin 90.9 % THb (90.0-100.0); PCO2 ABG 32.6 mmHg (35.0-45.0); PO2 ABG 57.8 mmHg (80.0-100.0); PO2 FiO2 Ratio Arterial Blood 0.64 %; Site Drawn RIGHT RADIAL; Total Hemoglobin 15.3 g/dL (12.0-18.0); pH ABG 7.475 (7.350-7.450)
--- NOTE | 2020-08-03 15:39 | PCDIET ---
Nutrition Follow-Up Complete: Nutrition Diagnosis: Inadequate oral intake related to COVID-19 as evidenced by no intake since admission, reported poor intake prior to admission with associated weight loss. Nutrition Goal: Patient to meet estimated nutritional needs. Goal in progress. Intakes have fluctuated since last review. Spoke with patient via phone due to COVID precautions. Patient reports decreased appetite. Per RN, patient becomes short of breath with meals. Patient reports taking Ensure Compact and prefers vanilla flavor. Recommend increasing Compact to TID with all meals. Last recorded weight is 94 kg which is down from last review. Bowel Motility: Last documented BM on 08/01/20. Labs Reviewed: Na (133), Alb (2.9), [place]a Ca (8.98) Meds Noted: Albuterol, Vitamin C, Symbicort, Decadron, Protonix, Remdesivir, Vitamin D, Zinc Sulfate Additional Notes: No documented skin breakdown. Will continue to monitor with same goal. Nutrition Monitoring and Evaluation: Follow up every 5 days.
--- NOTE | 2020-08-03 15:52 | WPDURCON ---
Assessment and Plan Assessment and plan (1) History of prostate cancer: Code(s): Z85.46 - Personal history of malignant neoplasm of prostate Status: Acute Assessment and Plan: cause of stress incontinence (2) Mixed incontinence: Code(s): N39.46 - Mixed incontinence Status: Acute Assessment and Plan: Urge Incontinence is caused by weakness and inability to get up to the bedside and use the urinal. (3) Difficulty with insertion of urinary catheter: Status: Acute Assessment and Plan: A 16fr coude catheter was inserted without difficulty, patient tolerated well, it was inserted without difficulty, 30cc of yellow urine was noted on return. He urinated 30 minutes prior to his catheter being inserted. Ok to remove catheter when no longer needed. No further evaluation needed. Urology Consult Note HPI Date Seen: 08/03/20 Requesting Physician: Pawel Danielson MD Primary Care Provider: Davian Peña, Consult Narrative Narrative: Gage Witt is a 75 year old male who is admitted d/t worsening COVID symptoms such as SOB and weakness. He has become very anxious about urinating as he is not strong enough to do so on his own at the bedside in the urinal and continues to have worsening incontinence because he is so weak. He is wearing depends and states he has had stress incontinence since his prostatectomy done by Dr. Crow Wilkerson at [facility] some years ago. Two night nurses tried to place a batista for I&O purposes but were unable to do so. The hospitalist wanted to also place the batista to keep the patient calm and resting to prevent him from needing a ventilator. He is currently on a Bi-Pap. Review of Systems Cardiovascular: Cardiovascular: Denies chest pain Respiratory: Respiratory: Reports dyspnea and Reports dyspnea on exertion Gastrointestinal: Gastrointestinal: Denies abdominal pain, Denies nausea and Denies vomiting Genitourinary: Genitourinary: Denies hematuria, Denies dysuria, Denies flank pain, Denies urinary frequency, Denies urinary hesitancy and Reports urinary incontinence PMFSH Past Medical History Medical History Chronic GERD History of prostate cancer Seasonal allergies Surgical History Surgical History H/O hernia repair X2 History of appendectomy History of prostatectomy S/P tonsillectomy and adenoidectomy Family History Family History Mother Breast cancer Father Emphysema lung Social History Social History Social History: The patient is retired from being self-employed. The patient is and his is his durable power commercial litigation attorney for healthcare. The patient is a full code but does not desire to live in a vegetative state. The patient has 2 children. He is a lifelong nonsmoker. Does not use any alcohol marijuana or drugs. Smoking status: Never smoker Alcohol intake: never Substance use: never Substance use type: does not use Gender identity (if verbalized by the patient): Male Spiritual care concerns: No Meds Home Medications and Allergies Home Medications Medication Instructions Recorded Confirmed Type loratadine 10 mg PO DAILY 07/30/20 07/30/20 History omeprazole 20 mg PO DAILY 07/30/20 07/30/20 History Allergies Allergy/AdvReac Type Severity Reaction Status Date / Time tetracycline Allergy Chills Verified 07/30/20 16:15 Vital Signs Vital Signs - 24 hr 08/02/20 16:00 08/02/20 18:00 08/02/20 20:00 Temperature 97.9 F 96.9 F L Pulse Rate 115 H 93 84 Respiratory Rate 18 22 H Blood Pressure 117/64 114/76 Pulse Oximetry 94 94 08/02/20 20:30 08/02/20 22:00 08/02/20 23:00 Temperature Pulse Rate 86 Respiratory Rate Blood Pressure Pulse
--- NOTE | 2020-08-03 16:35 | PM.CNPUL ---
Assessment and Plan Assessment and plan (1) Pneumonia due to 2019 novel coronavirus: Code(s): U07.1 - COVID-19; J12.82 - Pneumonia due to coronavirus disease 2019 Status: Acute Assessment and Plan: Patient tested positive for COVID-19 and started on remdesivir on 07/30, Dexamethasone started 07/31. Convalescent plasma given on 07/31. -Remdesivir for 10 days -Dexamethasone for 10 days, recommended dose is 6 mg Q day - Continuous pulse oximetry - attempt Prone positioning as tolerated - Avoid any fluid overload, I will check BNP in morning. Give lasix for any suggestion of fluid overload. - No evidence of bacterial pneumonia. - Obtain echo with bubble to assess LV function and exclude right to left shunt on 08/04 - Will DC inhaled steroids for now as on high dose systemic steroids. - Consider DC albuterol if no symptomatic improvement. Will follow with you. (2) Acute respiratory failure with hypoxia: Code(s): J96.01 - Acute respiratory failure with hypoxia Status: Acute Assessment and Plan: Patient with acute hypoxemic respiratory failure from COVID pneumonia. 07/30 RA sats 84% 07/30 18:00 5L with sats 91% 07/31 08:00 15 L NC sats 93% 08/01 08:00 15 L NC sats 92% 08/02 08:00 15 L NC sats 93% 08/03 08:00 15 L NC and 15 L NRB sats 93% : 15:25 High flow 60L, 90% FIO2 with sats 91% and ABG 7.48/33/58. Goal saturations are 90-94% and will utilize high-flow oxygen, followed by BiPAP, followed by mechanical ventilation if needed. ICU made aware of patient. I did discuss level of support and he is OK with BiPAP and talking to and family regarding mechanical ventilation. Full code for now. History of Present Illness History of Present Illness Consult date: 08/03/20 Requesting physician: Pawel Danielson MD Reason for consult: hypoxemia Chief complaint: Covid-19infection,acute hypoxic respiratory failur Narrative: This is a new consult For COVID pneumonia with hypoxemic respiratory failure. Patient is a 75-year-old man with a history of prostate cancer status post prostatectomy in 2012 with urinary incontinence since then, GERD who presents with COVID pneumonia. Patient has had URI symptoms for approximately 2 weeks and tested positive for COVID and was admitted to the hospital on 07/30. Patient had a day at chest x-ray that demonstrated bilateral infiltrates and had a CT angiogram on 07/31 that showed no pulmonary emboli but extensive left and moderate diffuse ground-glass infiltrates. Patient was started on REMdesivir on 07/30, dexamethasone on 07/31, and convalescent plasma was given on 07/31. ABG on 07/30/2020 on 6 L nasal cannula demonstrated pH of 7.45/35/61. Patient states that he is a lifelong nonsmoker, no illicit drug use and no occupational exposures. Patient states that at baseline he had no respiratory limitations in his activities of daily living and could walk 1/2 a mi in 30 minutes without any respiratory distress. 08/03 Patient developed worsening hypoxemic respiratory failure requiring high-flow nasal cannula at 60 L and 90% FiO2 to maintain saturations at 91% when I saw him today. Patient states that he is fatigued but denies any emily respiratory distress at this point. Patient is talking in complete sentences and denies any fever, chills, rigors, chest pain, hemoptysis. Patient had a chest x-ray on 08/03/2020 that demonstrates increased left and right mid lung infiltrates compared to 07/30/2020. ABG on 08/03/2020 demonstrates a pH of 7.48/33/58 on the 60 L, 90% FiO2 high-flow nasal cannula. Review of Systems Review of Systems: All systems reviewed & are unremarkable except as noted in HPI and below Eyes: Eyes: Reports no additional eye complaints ENT: Reports system reviewed and no additional complaints, except as documented Cardiovascular: Cardiovascular: Reports no additional cardiovascular complaints Respiratory: Respiratory: Reports no additional respira
[2020-08-03 18:30] LABS: D Dimer 3.26 ug/mL (<0.48)
[2020-08-03 20:25] LABS: Ferritin > 2000.00 ng/mL (11.1-264)
--- NOTE | 2020-08-03 21:11 | PM.CCN ---
Critical Care Event Note Summary Code activated: No Narrative: 08/03/2020 at at 8:30 p.m. Nursing staff called to notify me around 7:50 p.m. that the patient was a maxed out on Airvo 60 L with 100% FiO2 satting 90%. The patient's oxygen saturation then dropped down to the mid 80s while patient was sleeping at around 8:30 a.m.. A non-rebreather with added and patient's oxygen saturations were 90-94%. Patient was also given a Xanax that had previously been ordered to treat his anxiety. The patient was having respirations in the mid 30s heart rate was in the low 100s. I went to evaluate the patient he was slightly diaphoretic sitting upright in bed. He reported that he had not slept since he was admitted to hospital on the . He denied any chest pain and stated that his shortness of breath is unchanged from earlier. He had an x-ray earlier in the day demonstrating diffuse lung disease. Pulmonology has been consulted. The patient was already on treatment with Decadron and Remdesivir. Given the patient's worsening respiratory status the decision was made to transfer the patient to the ICU for placement on CPAP or BiPAP. I was at bedside and adjusted the patient's ventilator settings the patient did best on a CPAP of 12 with 100% FiO2. He was satting 91-94%. His respiratory rate was down to the lower 20s. He appeared much more comfortable. The patient states that he would be willing to be intubated if there were no other option. He would prefer to try noninvasive ventilation 1st. GENERAL: Acutely ill-appearing, well-developed well-nourished HEENT: Mucous membranes are tacky, dentition intact, pupils are equal and reactive, Airvo and non-rebreather in place CARDIOVASCULAR: Sinus tachycardia, 2+ bilateral radial and pedal pulses RESPIRATORY: Tachypnea, accessory muscle use, decreased breath sounds bilaterally ABDOMEN: Soft, nontender, positive bowel sounds INTEGUMENT: No pallor, no jaundice, normal temperature to touch NEUROLOGIC: Alert oriented x3, speech is clear, no facial asymmetry PSYCHIATRIC: Appropriate mood and affect, pleasant and cooperative EXTREMITIES: No clubbing, cyanosis or edema : Rodriguez catheter in place with dark yellow urine present approximately 100 mL in the bag Patient's labs, x-rays and medications were reviewed. Assessment and plan: Acute hypoxic respiratory failure to COVID pneumonia: Patient has been transferred to the ICU. He has improved respiratory status on CPAP of 12. His current vitals blood pressure 123/83 respiratory rate 26th satting 96%. The patient's case was discussed with color print inspector who agreed with the above plan. Will await further recommendations. Will continue Remdesivir and Decadron. The patient's albuterol has been changed from inhalers to nebulizers. Atrovent has been added. 70 minutes spent in critical care activities. This case had a high probability of a clinically significant, sudden, or life threatening deterioration of this patient's condition which required my full and direct attention, intervention and personal management. Critical care time: 30 - 74 mins
[2020-08-03] MEDS: REMDESIVIR 100 MG/NS 250 ML 100 MG/250 ML BAG 250 MG IVPB (21:49)
--- NOTE | 2020-08-03 22:19 | PC.NURSE ---
This patient, Gage Witt, was received from [facility] on 08/03/20 at 2122. Patient/family oriented to unit policies and routines
--- NOTE | 2020-08-03 23:07 | PC.NURSE ---
This patient, Gage Witt, was transferred to [icu ] on 08/03/20 at 2122 for increased oxygen needs. Personal belongings sent with patient. Report given to [Nadia ]. Appropriate documentation sent with patient.
--- NOTE | 2020-08-03 23:15 | PC.NURSE ---
Called and spoke to pt's , Haydee, at 2139 to let her know pt was transferred to icu 4 for increased oxygen needs and to watch him more closely. She has no questions at this time.
[2020-08-04] VITALS (31 sets, daily range): BP systolic 92–129; BP diastolic 61–85; PULSE 61–102; RESP 20–34; TEMP 36–37.7; O2SAT 85–98
[2020-08-04] MEDS: ALBUTEROL SULFATE NEB 2.5 MG/0.5 ML INH 5 MG INHALATION ×4 (02:37→20:55)
[2020-08-04] MEDS: IPRATROPIUM BR 0.02% INH SOLN 0.5 MG/2.5 ML VIAL INHALATION ×4 (02:38→20:55)
[2020-08-04 05:46] LABS: Basophils Percent Auto 0.1 % (0.2-1.2); Hematocrit 43.2 % (42.0-52.0); Hemoglobin 14.8 g/dL (14.0-18.0); Immature Granulocyte Percent A 0.7 % (0-0.5); Lymphocytes Absolute Auto 0.41 K/mm3 (0.9-3.2); Lymphocytes Percent Auto 3.1 % (18.3-44.2); Mean Corpuscular HGB Conc 34.3 g/dl (32-36); Mean Corpuscular Hemoglobin 31.4 pg (26-34); Mean Corpuscular Volume 91.7 fl (80-100); Mean Platelet Volume 11.2 fl (7.4-10.4); Monocytes Absolute Auto 0.2 K/mm3 (0.1-0.6); Monocytes Percent Auto 1.7 % (2.6-8.5); Neutrophils Absolute Auto 12.6 K/mm3 (1.3-6.7); Neutrophils Percent Auto 94.4 % (45.5-73.1); Platelet Count Result 147 k/mm3 (150-375); Red Blood Count 4.71 M/mm3 (4.6-6.20); Red Cell Distribution Width 12.1 % (11.5-14.5); White Blood Count 13.4 K/mm3 (4.5-10.0)
[2020-08-04 06:09] LABS: Alanine Aminotransferase 56 U/L (4-50); Albumin Level 2.6 g/dL (3.5-5.1); Alkaline Phosphatase 88 U/L (38-126); Anion Gap 3 mmol/L (8-16); Aspartate Amino Transferase 52 U/L (17-59); Blood Urea Nitrogen 29 mg/dL (9-20); Calcium 8.3 mg/dL (8.4-10.2); Carbon Dioxide 30 mmol/L (22-30); Chloride 101 mmol/L (98-107); Estimated CRCL calculation 95 ml/min; Estimated Glomerular Filt Rate > 60; Glucose 146 mg/dL (75-110); Sodium 134 mmol/L (137-145)
[2020-08-04 06:25] LABS: CRP 12.5 mg/dL (<1.0); Potassium 4.2 mmol/L (3.4-5.0)
--- NOTE | 2020-08-04 08:00 | ECHO_ITS ---
Patient Info Name: Gage Witt Age: 75 years : 1945 Gender: Male Ht: 75 in Wt: 207 lbs BSA: 2.24 m2 HR: 78 bpm BP: 105 / 64 mmHg Heart Rhythm: Sinus Rhythm Technical Quality: Fair Exam Date: 08/04/2020 12:22 PM Exam Location: [facility] Pulmonary Exam Room: ICU4 Patient Status: Inpatient Admit Date: 07/30/2020 Staff Ordering Physician: Len Zambrano MD [employer] Officer: Radha Hampton RDCS Attending Provider: Pawel Danielson MD Referring Physician: Juan Manuel CARRILLO; Exam Type: CA echo doppler w bubble study Study Info Indications - SOB ASSESS LV R/O SHUNT Complete two-dimensional, color flow and Doppler transthoracic echocardiogram is performed with agitated saline. Contrast/Agitated Saline Contrast/Ag. Saline: Agitated Saline Amount: 18.00 ml Summary 1. Left ventricular chamber dimension is normal. 2. Left ventricular systolic function is normal, estimated at 65-70%. 3. Intact interatrial septum visualized by agitated saline imaging. 4. Saline contrast injection shows no intracardiac shunt. Left Ventricle Left ventricular chamber dimension is normal. Left ventricular systolic function is normal, estimated at 65-70%. The left ventricular diastolic function is grade I diastolic dysfunction. Right Ventricle Right ventricular chamber dimension is normal. Left Atria Left atrial chamber dimension is normal. Right Atria Right atrial chamber dimension is normal. Atrial Septum Intact interatrial septum visualized by agitated saline imaging. Saline contrast injection shows no intracardiac shunt. Aortic Valve The aortic valve is trileaflet. There is mild aortic valve sclerosis. There is no aortic valve stenosis. Pulmonic Valve The pulmonic valve is not well visualized. Mitral Valve The mitral valve has normal leaflets. There is no mitral valve regurgitation. Tricuspid Valve The tricuspid valve leaflets are normal. Pericardium/Pleural The pericardium appears normal. Aorta The aortic root size at the sinus of Valsalva is normal. Left Ventricular Outflow Tract Name Value Normal LVOT 2D LVOT Diameter 2.1 cm LVOT Doppler LVOT Peak Gradient 4 mmHg LVOT Mean Gradient 2 mmHg LVOT VTI 19 cm LVOT VTI/AV VTI Ratio 0.8 LVOT Stroke Volume 68 ml LVOT CO 12.8 l/min LVOT CI 5.7 l/min/m2 Pulmonic Valve Name Value Normal PV Doppler PV Peak Gradient 2 mmHg Mitral Valve Name Value Normal
[2020-08-04] MEDS: BUDESONIDE RESPULE NEB 0.5 MG/2 ML AMP INHALATION ×2 (08:01→20:55)
--- NOTE | 2020-08-04 08:52 | WPDCNINT ---
Assessment and Plan Assessment and plan (1) Acute respiratory failure with hypoxia: Code(s): J96.01 - Acute respiratory failure with hypoxia Status: Acute Assessment and Plan: Patient presented with upper respiratory symptoms, tested positive for COVID-19, fevers, chills, cough -oxygen requirements have rapidly increased from 6 L to now being on CPAP and 90% FiO2 -currently on CPAP of 8 with good tidal volume, FiO2 of 90% -continue bronchodilators -add pulmicort -wean FiO2 to maintain O2 sats greater than 92% (2) Pneumonia due to 2019 novel coronavirus: Code(s): U07.1 - COVID-19; J12.82 - Pneumonia due to coronavirus disease 2019 Status: Acute Assessment and Plan: COVID-19 pneumonia -SARS-CoV-2 PCR positive on 07/21 -continue droplet, airborne, contact isolation and precautions -patient on dexamethasone (initiated on 07/31) -continue Remdesivir (initiated on 07/30) -patient also received convalescent plasma on 07/31 -inflammatory markers are elevated, will trend intermittently -pulmonology following the patient (3) DVT prophylaxis: Code(s): Z29.9 - Encounter for prophylactic measures, unspecified Status: Acute Assessment and Plan: Enoxaparin 40 mg subcu q.12 hours Additional Plan Discussed with patient at length and updated with his condition and plan of care. I did discuss with them regarding him requiring 90% oxygen on CPAP, if his respiratory status declines he may require intubation to which he is agreeable. Code status: Full Code Critical care time spent: 48 minutes This dictation may have been done utilizing a voice recognition system. Attempts have been made to correct errors. However, there may be uncorrected grammatical, spelling, and recognition errors present. Due to a high probability of clinically significant, life threatening deterioration, the patient required my highest level of preparedness to intervene emergently and I personally spent this critical care time directly and personally managing the patient. This critical care time included obtaining a history; examining the patient; pulse oximetry; ordering and review of studies; arranging urgent treatment with development of a management plan; evaluation of patient's response to treatment; frequent reassessment; and discussions with other providers. It was exclusive of separately billable procedures and treating other patients and teaching time. Please see Assessment and Plan section and the rest of the note for further information on patient assessment and treatment Cash Register Repairer Consult Note Consult date: 08/04/20 Time Seen: 06:58 Reason for consult: COVID-19 pneumonia, acute hypoxic respiratory failure HPI: Gage Witt is a 75 year old male with past medical history of chronic GERD, history of prostate cancer status post prostatectomy in 2012 with urinary incontinence, seasonal allergies presented the ED on 07/30/2020 with complains of upper respiratory tract symptoms, chills, cough. He was evaluated at an urgent care on 07/21 and was prescribed Z-Micky. Patient also declined COVID-19 vaccine. Patient was admitted to the hospital on 07/30 assist chest x-ray demonstrated bilateral infiltrates, patient was hypoxic on room air requiring 6 L oxygen initially and very rapidly his oxygen requirements increased. Patient started on Remdesivir on 07/30, dexamethasone on 07/31. Was also given a unit of convalescent plasma on 07/31. Patient gradually went on to the Airvo with 90% FiO2 and 60 L flow rate. Overnight upper 80s on these settings and was transferred to the ICU and placed on CPAP with 100% FiO2 with adequate O2 sats. He does drop his sats with the she removes his mask to drink fluids. He was initially tachypneic but once placed on CPAP his respiratory rate also improved. Patient was transferred to the ICU for further management Patient seen and examined this morning in the ICU, is awake, alert, follows simple comm
[2020-08-04] MEDS: PANTOPRAZOLE SODIUM IV 40 MG VIAL IV PUSH (09:47)
[2020-08-04] MEDS: dexmedeTOMIDine 400 MCG/100 ML 400 MCG/100 ML BAG IV CONT (09:47)
[2020-08-04] MEDS: ASCORBIC ACID 500 MG TABLET PO (09:51)
[2020-08-04] MEDS: CHOLECALCIFEROL 1,000 UNITS TABLET 1000 UNITS PO (09:51)
[2020-08-04] MEDS: ENOXAPARIN 40 MG/0.4 ML SYRINGE SUB-Q ×2 (09:51→20:19)
[2020-08-04] MEDS: ZINC SULFATE 220 MG CAPSULE PO (09:52)
[2020-08-04 10:26] LABS: INR 1.1; Prothrombin Time 15.1 Seconds (11.1-14.7)
[2020-08-04 12:40] LABS: Alveolar/Arterial O2 Gradient 599.2 mmHg; Base Excess ABG 5.1 mEq/l (+/-2.0); Fractional Inspired Oxygen 100 %; HCO3 ABG 29.2 mEq/l (22.0-26.0); Oxygen Content ABG 20.1 %vol (16.0-22.0); Oxygen Saturation ABG 95.6 % (95.0-100.0); Oxyhemoglobin 94.5 % THb (90.0-100.0); PCO2 ABG 40.7 mmHg (35.0-45.0); PO2 ABG 73.1 mmHg (80.0-100.0); PO2 FiO2 Ratio Arterial Blood 0.73 %; Total Hemoglobin 15.1 g/dL (12.0-18.0); pH ABG 7.473 (7.350-7.450)
--- NOTE | 2020-08-04 12:49 | PM.IMPN ---
Progress Note: A&P Assessment and Plan (1) COVID-19 virus infection: Code(s): U07.1 - COVID-19 Status: Acute Assessment and Plan: 08/04/2020 12:50 Continue With Decadron, REMdesivir, albuterol inhaler, titrate oxygen on Airvo as needed, and incentive spirometer. We discussed vitamin C and zinc but the patient is stating he does not want to take those at this time. I explained to the patient that he needs to limit his activity and do pronation every 2 hours. The patient insists on getting up and his oxygen level dropped down the 85% when he got up in the room. The patient is on high-flow at this time. He is slowly recovering from getting up. I explained that the patient needs to use his urinal at the bedside. The patient is very insistent on getting up. I explained that the patient has higher oxygen demand needs to stay in bed. I also offered him a Rodriguez catheter. We had discussed intubation as well. The patient stated that he would be intubated but does not want to live in a vegetative state. I ordered Tylenol for the fever or mild pain. Incentive spirometer. Albuterol inhaler. The patient stated that he tested positive at home with a home test from [employer]. 07/31 patient was started on dexamethasone on 07/30 05/16 and Remdesivir 05/11 patient still requiring 15 L high-flow nasal cannula and complains of shortness of breath and fatigue, patient has agreed to take convalescent plasma will also give vitamin-C and D as well as zinc, and start Symbicort. will continue to monitor and further recommendation to follow 08/01/20 patient was started on dexamethasone on 07/30 06/13 and Remdesivir 06/08 and received convalescent plasma today, also receiving symbicort, vitamin C and D as well as zinc, if there no improvement tomorrow, will increase dexamethasone to 20mg daily for 5 days, patient still requiring 15 L high-flow nasal cannula and complains of shortness of breath and fatigue,as well as poor appetite, I spoke with patient and gave he all the updates. 08/02/20 patient was started on dexamethasone on 07/30 07/14 and Remdesivir 07/09 and received convalescent plasma on 08/01 , also receiving symbicort, vitamin C and D as well as zinc, there is not improvement in patient oxygen requirement, will increase dexamethasone to 20mg daily today 08/02 for next 5 days, and continue to monitor and plan. 08/03 patient was started on dexamethasone on 07/30 07/14, today increase dexamethasone to 20mg daily for 1/5days and patient will complete 5 days course of Remdesivir today 08/08, will continue for another 5 days,and received convalescent plasma on 08/01 , also receiving symbicort, vitamin C and D as well as zinc, there is not much improvement in patient oxygen requirement, will consult millinery teacher and further recommendation to follow 08/04 on 08/03 late night rapid responce was called and was hypoxic BIPAP was placed by the noctornist and transfer the patient to ICU, patient was seen by teacher kindergarten. patient was started on dexamethasone on 07/30 07/14, on 08/03 increase dexamethasone to 20mg daily for 2/5days and patient completed 5 days course of Remdesivir on 08/03 continued for additional 5 days, on 08/04 09/13 and received convalescent plasma on 08/01. patient is progressively getting worse and now requiring BIPAP, patient will be seen by pulmonology and appreciate. (2) Acute respiratory failure with hypoxia: Code(s): J96.01 - Acute respiratory failure with hypoxia Status: Acute Assessment and Plan: We did place the patient on high-flow 15 L per nasal cannula and we also discussed placing the patient on Airvo. The patient is a mouth breather so we may also consider putting him on a BiPAP. However I do not see the patient tolerating this as he is wanting to get up out of bed. We reiterated the importance of staying in bed as much as possible. Did order CT a pulmonary. (3) Seasonal allergies: Code(s): J30.2 - Other seasonal al
[2020-08-04 13:12] LABS: Modified Allen's Test Pass; Site Drawn LEFT RADIAL
[2020-08-04 13:14] LABS: Device NON-INVASIVE VENT
[2020-08-04 14:54] LABS: D Dimer 8.43 ug/mL (<0.48)
--- NOTE | 2020-08-04 16:43 | PM.PNPUL ---
Progress Note: A&P Assessment and Plan (1) Acute respiratory failure with hypoxia: Code(s): J96.01 - Acute respiratory failure with hypoxia Status: Acute Assessment and Plan: Patient with acute hypoxemic respiratory failure from COVID pneumonia, intubated 08/05/202007/30 RA sats 84% 07/30 18:00 5L with sats 91% 07/31 08:00 15 L NC sats 93% 08/01 08:00 15 L NC sats 92% 08/02 08:00 15 L NC sats 93% 08/03 08:00 15 L NC and 15 L NRB sats 93% 15:25 High flow 60L, 90% FIO2 with sats 91% and ABG 7.48/33/58. 08/04 saturation has been in the high 80% range, 85% on 100%, increased shortness of breath Goal saturations are 90-94% and will utilize high-flow oxygen, followed by BiPAP, followed by mechanical ventilation if needed. ICU made aware of patient. (2) Pneumonia due to 2019 novel coronavirus: Code(s): U07.1 - COVID-19; J12.82 - Pneumonia due to coronavirus disease 2019 Status: Acute Assessment and Plan: Patient tested positive for COVID-19 and started on remdesivir on 07/30, Dexamethasone started 07/31. Convalescent plasma given on 07/31. -Remdesivir for 10 days -Dexamethasone for 10 days, recommended dose is 6 mg Q day - Continuous pulse oximetry - attempt Prone positioning as tolerated - Avoid any fluid overload, I will check BNP in morning. Give lasix for any suggestion of fluid overload. - No evidence of bacterial pneumonia. - Obtain echo with bubble to assess LV function and exclude right to left shunt on 08/04 - Will DC inhaled steroids for now as on high dose systemic steroids. - Consider DC albuterol if no symptomatic improvement. Will follow with you. Subjective Date/time seen: 08/04/20 16:43 Review of Systems Review of Systems: All systems reviewed & are unremarkable except as noted in HPI and below Constitutional: Constitutional: Reports no additional constitutional complaints Eyes: Eyes: Reports no additional eye complaints ENT: Reports system reviewed and no additional complaints, except as documented Cardiovascular: Cardiovascular: Reports no additional cardiovascular complaints Gastrointestinal: Gastrointestinal: Reports no additional gastrointestinal complaints Musculoskeletal: Musculoskeletal: Reports no additional musculoskeletal complaints Integumentary/Breasts: Skin/Breast: Reports system reviewed and no additional complaints, except as docu Neurologic: Reports system reviewed and no additional complaints, except as documented Exam Const: General: cooperative Orientation/consciousness: patient oriented x3 HENMT: Head: normal to inspection Ears: hearing grossly normal bilaterally Face and sinus: normal facial exam Mouth: Yes Normal oral and palatal mucosa present Eyes: General: appearance normal, both eyes and all related structures Neck: Neck: normal visual inspection Chest: Chest palpation & inspection: normal inspection of the chest Resp: Effort & Inspection: normal respiratory effort Auscultation: clear to auscultation bilaterally Cardio: Rate: regular rate Rhythm: regular rhythm GI: Inspection: normal to inspection Skin: General skin exam: normal color Neuro: General: patient oriented x3 Extrem: General: normal to inspection Objective Data Vital Signs Vital Signs: Vital Signs - 24 hr 08/03/20 18:00 08/03/20 18:22 08/03/20 19:55 Temperature 36.7 C Pulse Rate 115 H 88 Respiratory Rate 32 H 30 H Blood Pressure 128/69 Pulse Oximetry 90 88 L 08/03/20 20:00 08/03/20 20:30 08/03/20 21:45 Temperature 36.4 C Pulse Rate 92 87 Respiratory Rate 26 H 32 H 29 H Blood Pressure 120/58 L 123/83 Pulse Oximetry 88 L 84 L 97 08/03/20 22:00 08/03/20 23:34 08/04/20 00:00 Temperature Pulse Rate 88 69 Respiratory Rate 26 H 30 H Blood Pressure 113/71 Pulse Oximetry 94 95 94 08/04/20 02:00 08/04/20 02:38 08/04/20 02:44 Temperature Pulse Rate 70 74 78 Respiratory Rate 22 H 27 H 27 H Blood Pressure 11
[2020-08-04] MEDS: CENTRAL LINE FLUSH 10 ML IV PUSH (20:04)
[2020-08-04] MEDS: dexmedeTOMIDine 400 MCG/100 ML 400 MCG/100 ML BAG 7.34 MCG IV CONT (20:19)
[2020-08-04] MEDS: REMDESIVIR 100 MG/NS 250 ML 100 MG/250 ML BAG 250 MG IVPB (20:20)
[2020-08-05] VITALS (39 sets, daily range): BP systolic 106–156; BP diastolic 67–97; PULSE 65–125; RESP 20–28; TEMP 35.7–36.9; O2SAT 90–98
[2020-08-05] MEDS: IPRATROPIUM BR 0.02% INH SOLN 0.5 MG/2.5 ML VIAL INHALATION ×4 (02:02→20:26)
[2020-08-05] MEDS: ALBUTEROL SULFATE NEB 2.5 MG/0.5 ML INH 5 MG INHALATION ×4 (02:02→20:26)
[2020-08-05 05:14] LABS: Basophils Percent Auto 0.1 % (0.2-1.2); Hematocrit 42.4 % (42.0-52.0); Hemoglobin 14.7 g/dL (14.0-18.0); Immature Granulocyte Absolute 0.09 K/mm3 (0.00-0.031); Immature Granulocyte Percent A 0.7 % (0-0.5); Immature Platelet Fraction Pct 8.4 % (0.9-11.2); Lymphocytes Absolute Auto 0.28 K/mm3 (0.9-3.2); Lymphocytes Percent Auto 2.1 % (18.3-44.2); Mean Corpuscular HGB Conc 34.7 g/dl (32-36); Mean Corpuscular Hemoglobin 31.7 pg (26-34); Mean Corpuscular Volume 91.4 fl (80-100); Mean Platelet Volume 11.5 fl (7.4-10.4); Monocytes Absolute Auto 0.2 K/mm3 (0.1-0.6); Monocytes Percent Auto 1.8 % (2.6-8.5); Neutrophils Absolute Auto 12.7 K/mm3 (1.3-6.7); Neutrophils Percent Auto 95.3 % (45.5-73.1); Platelet Count Result 125 k/mm3 (150-375); Red Blood Count 4.64 M/mm3 (4.6-6.20); Red Cell Distribution Width 12.2 % (11.5-14.5); White Blood Count 13.3 K/mm3 (4.5-10.0)
[2020-08-05] MEDS: CENTRAL LINE FLUSH 10 ML IV PUSH ×3 (05:19→20:46)
[2020-08-05 05:29] LABS: Alanine Aminotransferase 48 U/L (4-50); Albumin Level 2.5 g/dL (3.5-5.1); Alkaline Phosphatase 91 U/L (38-126); Anion Gap 1 mmol/L (8-16); Aspartate Amino Transferase 41 U/L (17-59); Bilirubin,Total 1.2 mg/dL (0.2-1.3); Blood Urea Nitrogen 34 mg/dL (9-20); CRP 5.6 mg/dL (<1.0); Calcium 8.3 mg/dL (8.4-10.2); Carbon Dioxide 32 mmol/L (22-30); Chloride 103 mmol/L (98-107); Estimated CRCL calculation 84 ml/min; Estimated Glomerular Filt Rate > 60; Glucose 152 mg/dL (75-110); Lactate Dehydrogenase 1140 U/L (313-618); Magnesium 2.3 mg/dL (1.6-2.3); Phosphorus 2.4 mg/dL (2.5-4.5); Potassium 4.8 mmol/L (3.4-5.0); Sodium 136 mmol/L (137-145)
[2020-08-05 05:36] LABS: INR 1.2; Prothrombin Time 15.9 Seconds (11.1-14.7)
[2020-08-05 05:58] LABS: D Dimer 18.21 ug/mL (<0.48)
[2020-08-05] MEDS: BUDESONIDE RESPULE NEB 0.5 MG/2 ML AMP INHALATION ×2 (07:50→20:27)
[2020-08-05 08:38] LABS: Ferritin > 2000.00 ng/mL (11.1-264)
[2020-08-05] MEDS: MIDAZOLAM HCL (*CRX) 2 MG/2 ML VIAL IV PUSH (09:06)
--- NOTE | 2020-08-05 09:46 | WPDINTPN ---
Progress Note: A&P Assessment and Plan (1) Acute respiratory failure with hypoxia: Code(s): J96.01 - Acute respiratory failure with hypoxia Status: Acute Assessment and Plan: Patient presented with upper respiratory symptoms, tested positive for COVID-19, fevers, chills, cough -patient is on CPAP of 8, 100% FiO2 for greater than 24 hours -he is using accessory muscles of respiration, recommended intubation to which he and his significant and agreed -patient was successfully intubated on 08/05/2020, currently on tidal volume strategy for ARDS physiology, 6 mL per kg of predicted body weight -will maintain O2 sats greater than 92% and plateau pressures of <30 -currently on a PEEP of 10 and 100% FiO2 -will obtain ABGs post intubation -continue bronchodilators and pulmicort -sedation with fentanyl and Versed infusion, an add Nimbex for chemical paralysis and ventilator synchrony (2) Pneumonia due to 2019 novel coronavirus: Code(s): U07.1 - COVID-19; J12.82 - Pneumonia due to coronavirus disease 2018 Status: Acute Assessment and Plan: COVID-19 pneumonia -SARS-CoV-2 PCR positive on 07/21 -continue droplet, airborne, contact isolation and precautions -patient on dexamethasone (initiated on 07/31) -continue Remdesivir (initiated on 07/30) -patient also received convalescent plasma on 07/31 -inflammatory markers are elevated, will trend intermittently -pulmonology following the patient (3) DVT prophylaxis: Code(s): Z29.9 - Encounter for prophylactic measures, unspecified Status: Acute Assessment and Plan: Enoxaparin 40 mg subcu q.12 hours Additional Plan Discussed with patient and his significant other, Haydee, I updated both of them regarding his respiratory status and 100% FiO2 requirements on CPAP, he being tachypneic and using accessory muscles for breathing. I would explain to them that his accessory muscles of respiration well be fatigued at some point and he will have a respiratory arrest, would recommend early intubation and control setting to which both of them agreed. I explained to them the procedure detail Code status: Full Code Critical care time spent: 42 minutes This dictation may have been done utilizing a voice recognition system. Attempts have been made to correct errors. However, there may be uncorrected grammatical, spelling, and recognition errors present. Due to a high probability of clinically significant, life threatening deterioration, the patient required my highest level of preparedness to intervene emergently and I personally spent this critical care time directly and personally managing the patient. This critical care time included obtaining a history; examining the patient; pulse oximetry; ordering and review of studies; arranging urgent treatment with development of a management plan; evaluation of patient's response to treatment; frequent reassessment; and discussions with other providers. It was exclusive of separately billable procedures and treating other patients and teaching time. Please see Assessment and Plan section and the rest of the note for further information on patient assessment and treatment Subjective Date/time seen: 08/05/20 09:46 Interval history: Reason for consult: COVID-19 pneumonia, acute hypoxic respiratory failure 08/05/2020: Patient seen and examined, remains on CPAP of 8, 100% FiO2, patient desaturates in the 70s and 80s if he takes his BiPAP off. Patient is hemodynamically stable, afebrile, adequate urine output, denies any chest pain, abdominal pain, nausea vomiting. Patient still continues to complain of some cough. Discussed with patient regarding his increased oxygen requirements and that he has been on the CPAP for greater than 24 hours along with 100% FiO2. He is tachypneic, using accessory muscles of respiration. I discussed with him that his respiratory muscles are going to get fatigued and we will have to emergently intubate
[2020-08-05] MEDS: CISATRACURIUM BESYLATE 20 MG/10 ML VIAL 14.4 MG IV PUSH (09:54)
[2020-08-05] MEDS: RAPID SEQUENCE INTUBATION KIT 1 EACH (09:54)
[2020-08-05] MEDS: FENTANYL 2,500MCG/NS250ML(*CRX 2,500 MCG/250 ML BAG IV CONT (09:55)
[2020-08-05] MEDS: CISATRACURIUM BESYLATE 200 MG in DEXTROSE 5% 80 ML 8.67 ML IV CONT ×2 (09:56→20:41)
[2020-08-05] MEDS: MIDAZOLAM 100MG/NS 100ML(*CRX) 100 MG/100 ML BAG IV CONT (09:56)
--- NOTE | 2020-08-05 09:56 | WPDPROCEDUR ---
Procedures Intubation Intubation Date: 08/05/20 Intubation Time: 08:34 A pre-procedural Time-Out was completed immediately before starting the procedure and confirmed: Patient Identification, Site, Procedure, Patient Position and the Availability of Requisite Equipment: Yes Sedative: etomidate Paralytic: rocuronium Laryngoscope: fiber optic video scope Assist device used: fiber optic device ET tube size: 8 Tube secured depth (cm): 26 Tube secured location: lips Tube placement confirmation: visualized tube passing through cords, equal breath sounds bilaterally, no breath sounds over epigastrium and confirmation by capnometry Patient tolerated procedure: well Intubation complications: none
[2020-08-05] MEDS: ENOXAPARIN 40 MG/0.4 ML SYRINGE SUB-Q ×2 (10:06→20:43)
[2020-08-05] MEDS: ASCORBIC ACID 500 MG TABLET PO (10:07)
[2020-08-05] MEDS: CHOLECALCIFEROL 1,000 UNITS TABLET 1000 UNITS PO (10:07)
[2020-08-05] MEDS: PANTOPRAZOLE SODIUM IV 40 MG VIAL IV PUSH (10:07)
[2020-08-05] MEDS: ZINC SULFATE 220 MG CAPSULE PO (10:07)
[2020-08-05 10:18] LABS: Alveolar/Arterial O2 Gradient 549.9 mmHg; Base Excess ABG 1.7 mEq/l (+/-2.0); Fractional Inspired Oxygen 100 %; HCO3 ABG 29.5 mEq/l (22.0-26.0); Oxygen Content ABG 22.2 %vol (16.0-22.0); Oxygen Saturation ABG 97.3 % (95.0-100.0); PCO2 ABG 58.4 mmHg (35.0-45.0); PO2 ABG 104.7 mmHg (80.0-100.0); PO2 FiO2 Ratio Arterial Blood 1.05 %; Total Hemoglobin 16.4 g/dL (12.0-18.0); pH ABG 7.321 (7.350-7.450)
[2020-08-05 10:21] LABS: Arterial Blood Gas PEEP 10 cmH2O; Arterial Blood Gas Tidal Volume 480 ml; Arterial Blood Gas Vent Mode CMV; Arterial Blood Gas Ventilator rate 28 /MIN; Device VENTILATOR; Modified Allen's Test Pass; Site Drawn RIGHT RADIAL
--- NOTE | 2020-08-05 11:43 | PM.IMPN ---
Progress Note: A&P Assessment and Plan (1) COVID-19 virus infection: Code(s): U07.1 - COVID-19 Status: Acute Assessment and Plan: 08/05/20 11:43 Continue With Decadron, REMdesivir, albuterol inhaler, titrate oxygen on Airvo as needed, and incentive spirometer. We discussed vitamin C and zinc but the patient is stating he does not want to take those at this time. I explained to the patient that he needs to limit his activity and do pronation every 2 hours. The patient insists on getting up and his oxygen level dropped down the 85% when he got up in the room. The patient is on high-flow at this time. He is slowly recovering from getting up. I explained that the patient needs to use his urinal at the bedside. The patient is very insistent on getting up. I explained that the patient has higher oxygen demand needs to stay in bed. I also offered him a Rodriguez catheter. We had discussed intubation as well. The patient stated that he would be intubated but does not want to live in a vegetative state. I ordered Tylenol for the fever or mild pain. Incentive spirometer. Albuterol inhaler. The patient stated that he tested positive at home with a home test from [employer]. 07/31 patient was started on dexamethasone on 07/30 05/16 and Remdesivir 05/11 patient still requiring 15 L high-flow nasal cannula and complains of shortness of breath and fatigue, patient has agreed to take convalescent plasma will also give vitamin-C and D as well as zinc, and start Symbicort. will continue to monitor and further recommendation to follow 08/01/20 patient was started on dexamethasone on 07/30 06/13 and Remdesivir 06/08 and received convalescent plasma today, also receiving symbicort, vitamin C and D as well as zinc, if there no improvement tomorrow, will increase dexamethasone to 20mg daily for 5 days, patient still requiring 15 L high-flow nasal cannula and complains of shortness of breath and fatigue,as well as poor appetite, I spoke with patient and gave he all the updates. 08/02/20 patient was started on dexamethasone on 07/30 07/14 and Remdesivir 07/09 and received convalescent plasma on 08/01 , also receiving symbicort, vitamin C and D as well as zinc, there is not improvement in patient oxygen requirement, will increase dexamethasone to 20mg daily today 08/02 for next 5 days, and continue to monitor and plan. 08/03 patient was started on dexamethasone on 07/30 07/14, today increase dexamethasone to 20mg daily for 1/5days and patient will complete 5 days course of Remdesivir today 08/08, will continue for another 5 days,and received convalescent plasma on 08/01 , also receiving symbicort, vitamin C and D as well as zinc, there is not much improvement in patient oxygen requirement, will consult special services coordinator and further recommendation to follow 08/04 on 08/03 late night rapid responce was called and was hypoxic BIPAP was placed by the noctornist and transfer the patient to ICU, patient was seen by supervisor sign shop. patient was started on dexamethasone on 07/30 07/14, on 08/03 increase dexamethasone to 20mg daily for 2/5days and patient completed 5 days course of Remdesivir on 08/03 continued for additional 5 days, on 08/04 09/13 and received convalescent plasma on 08/01. patient is progressively getting worse and now requiring BIPAP, patient will be seen by pulmonology and appreciate. 08/05 today patient was more hypoxic and was using accessory muscles seen by supervisor sign shop recommended intubation for which patient and his agree and patient was intubated currently on vent unable to provide any review of symptom, seen by supervisor sign shop and appreciate, patient was started on dexamethasone on 07/30 07/14, on 08/03 increase dexamethasone to 20mg daily for 3/5days and patient completed 5 days course of Remdesivir on 08/03 continued for additional 5 days, on 08/04 10/13 and received convalescent plasma on 08/01. (2) Acute respiratory failure with hypoxia: Code(s): J96.01 - Acute
[2020-08-05] MEDS: SODIUM CHLORIDE 0.9% IV 500 ML IV CONT (12:15)
--- NOTE | 2020-08-05 15:01 | PM.PNPUL ---
Progress Note: A&P Assessment and Plan (1) Acute respiratory failure with hypoxia: Code(s): J96.01 - Acute respiratory failure with hypoxia Status: Acute Assessment and Plan: Patient with acute hypoxemic respiratory failure from COVID pneumonia, intubated 08/05/202007/30 RA sats 84% 07/30 18:00 5L with sats 91% 07/31 08:00 15 L NC sats 93% 08/01 08:00 15 L NC sats 92% 08/02 08:00 15 L NC sats 93% 08/03 08:00 15 L NC and 15 L NRB sats 93% 15:25 High flow 60L, 90% FIO2 with sats 91% and ABG 7.48/33/58. 08/04 saturation has been in the high 80% range, 85% on 100%, increased shortness of breath Goal saturations are 90-94% and will utilize high-flow oxygen, followed by BiPAP, followed by mechanical ventilation if needed. ICU made aware of patient. (2) Pneumonia due to 2019 novel coronavirus: Code(s): U07.1 - COVID-19; J12.82 - Pneumonia due to coronavirus disease 2019 Status: Acute Assessment and Plan: Patient tested positive for COVID-19 and started on remdesivir on 07/30, Dexamethasone started 07/31. Convalescent plasma given on 07/31. -Remdesivir for 10 days -Dexamethasone for 10 days, recommended dose is 6 mg Q day - Continuous pulse oximetry - attempt Prone positioning as tolerated - Avoid any fluid overload, I will check BNP in morning. Give lasix for any suggestion of fluid overload. - No evidence of bacterial pneumonia. - Obtain echo with bubble to assess LV function and exclude right to left shunt on 08/04 - Will DC inhaled steroids for now as on high dose systemic steroids. - Consider DC albuterol if no symptomatic improvement. Will follow with you. Subjective Date/time seen: 08/05/20 15:01 Gage Witt is 75 year old, intubated today by Dr Rodgers for progressive respiratory failure Exam Const: General: no acute distress (intubated and sedated) Orientation/consciousness: oriented to person, oriented to place, oriented to time and patient oriented x3 HENMT: Head: normal to inspection Face and sinus: normal facial exam Other: intubated Eyes: General: appearance normal, both eyes and all related structures Neck: Neck: normal visual inspection Chest: Chest palpation & inspection: normal inspection of the chest Resp: Effort & Inspection: normal respiratory effort and able to speak in complete sentences Auscultation: clear to auscultation bilaterally, crackles (bilaterally throuhgout), no rales, no rhonchi and no wheezes Cardio: Jugular venous distension: no JVD Rate: regular rate Rhythm: regular rhythm GI: Inspection: normal to inspection Skin: General skin exam: normal color Neuro: General: oriented to person, oriented to place, oriented to time and patient oriented x3 Extrem: General: normal to inspection and no edema Psych: Appearance: grossly normal Objective Data Vital Signs Vital Signs: Vital Signs - 24 hr 08/04/20 16:00 08/04/20 17:00 08/04/20 18:00 Temperature 36.6 C 36.8 C Pulse Rate 76 63 Respiratory Rate 24 H 25 H 22 H Blood Pressure 102/66 110/73 Pulse Oximetry 94 97 08/04/20 20:00 08/04/20 20:03 08/04/20 20:19 Temperature 36.0 C L Pulse Rate 61 63 68 Respiratory Rate 20 25 H 24 H Blood Pressure 128/85 Pulse Oximetry 96 08/04/20 20:55 08/04/20 20:56 08/04/20 21:05 Temperature Pulse Rate 68 68 72 Respiratory Rate 24 H 23 H 24 H Blood Pressure Pulse Oximetry 97 08/04/20 22:00 08/04/20 23:25 08/05/20 00:00 Temperature 35.7 C L Pulse Rate 78 66 65 Respiratory Rate 22 H 21 H 23 H Blood Pressure 92/64 L 134/89 Pulse Oximetry 92 93 95 08/05/20 02:00 08/05/20 02:03 08/05/20 02:05 Temperature Pulse Rate 72 71 73 Respiratory Rate 25 H 27 H 23 H Blood Pressure 123/79 Pulse Oximetry 96 96 08/05/20 02:11 08/05/20 03:24 08/05/20 04:00 Temperature 36.1 C L Pulse Rate 72 65 Respiratory Rate 20 25 H Blood Pressure 117/82 Pulse Oximetry 95 97 08/05/20 04:26 08/05/20 04:58 08/05/20
[2020-08-05 16:51] LABS: Add Urine Microscopic? YES; Appearance Urine Clear (Clear); Bilirubin Urine Negative (Negative); Blood Urine 1+ (Negative); Color Urine Amber (Yellow); Glucose Urine UA Negative (Negative); Ketones Urine Negative (Negative); Leukocyte Esterase Ur Negative LEU/UL (Negative); Mucus Urine Rare /lpf; Nitrate Urine Negative (Negative); Protein Urine 1+ mg/dL (Negative); RBC Urine 21-50 /hpf (0-2); Specific Grav Ur 1.027 (1.001-1.035); Squamous Epithelial Cell Urine Rare /hpf (Few)
[2020-08-05] MEDS: REMDESIVIR 100 MG/NS 250 ML 100 MG/250 ML BAG 250 MG IVPB (20:46)
[2020-08-06] VITALS (44 sets, daily range): BP systolic 108–157; BP diastolic 54–91; PULSE 96–129; RESP 26; TEMP 35.8–37.4; O2SAT 94–97; BMI 26.4
[2020-08-06] MEDS: IPRATROPIUM BR 0.02% INH SOLN 0.5 MG/2.5 ML VIAL INHALATION ×4 (01:47→21:31)
[2020-08-06] MEDS: ALBUTEROL SULFATE NEB 2.5 MG/0.5 ML INH 5 MG INHALATION ×4 (01:47→21:31)
[2020-08-06 04:37] LABS: Alveolar/Arterial O2 Gradient 496.8 mmHg; Base Excess ABG 3.5 mEq/l (+/-2.0); Carboxyhemoglobin 0.1 % THb (0-2.0); Fractional Inspired Oxygen 90 %; HCO3 ABG 31.2 mEq/l (22.0-26.0); Methemoglobin ABG 0.5 %THb (0-1.5); Oxygen Content ABG 21.3 %vol (16.0-22.0); Oxygen Saturation ABG 95.4 % (95.0-100.0); Oxyhemoglobin 95.1 % THb (90.0-100.0); PCO2 ABG 59.7 mmHg (35.0-45.0); PO2 ABG 83.7 mmHg (80.0-100.0); PO2 FiO2 Ratio Arterial Blood 0.93 %; Reduced Hemoglobin 4.3 %THb (0-5.0); Total Hemoglobin 15.9 g/dL (12.0-18.0); pH ABG 7.336 (7.350-7.450)
[2020-08-06 04:38] LABS: Device VENTILATOR; Modified Allen's Test Pass; Site Drawn LEFT RADIAL
[2020-08-06 04:39] LABS: Arterial Blood Gas PEEP 10 cmH2O; Arterial Blood Gas Tidal Volume 510 ml; Arterial Blood Gas Vent Mode CMV; Arterial Blood Gas Ventilator rate 26 /MIN
[2020-08-06] MEDS: CISATRACURIUM BESYLATE 200 MG in DEXTROSE 5% 80 ML 10.11 ML IV CONT ×2 (06:15→18:27)
[2020-08-06] MEDS: CENTRAL LINE FLUSH 10 ML IV PUSH ×3 (06:16→21:52)
[2020-08-06 06:25] LABS: Basophils Percent Auto 0.2 % (0.2-1.2); Hematocrit 48.4 % (42.0-52.0); Hemoglobin 15.9 g/dL (14.0-18.0); Immature Granulocyte Absolute 0.12 K/mm3 (0.00-0.031); Immature Granulocyte Percent A 0.7 % (0-0.5); Immature Platelet Fraction Pct 8.2 % (0.9-11.2); Lymphocytes Percent Auto 1.7 % (18.3-44.2); Mean Corpuscular HGB Conc 32.9 g/dl (32-36); Mean Corpuscular Hemoglobin 31.7 pg (26-34); Mean Corpuscular Volume 96.4 fl (80-100); Monocytes Absolute Auto 0.6 K/mm3 (0.1-0.6); Monocytes Percent Auto 3.1 % (2.6-8.5); Neutrophils Absolute Auto 16.7 K/mm3 (1.3-6.7); Neutrophils Percent Auto 94.3 % (45.5-73.1); Platelet Count Result 92 k/mm3 (150-375); Red Blood Count 5.02 M/mm3 (4.6-6.20); Red Cell Distribution Width 12.9 % (11.5-14.5); White Blood Count 17.7 K/mm3 (4.5-10.0)
[2020-08-06 06:53] LABS: Alanine Aminotransferase 40 U/L (4-50); Albumin Level 2.5 g/dL (3.5-5.1); Alkaline Phosphatase 79 U/L (38-126); Anion Gap 1 mmol/L (8-16); Aspartate Amino Transferase 31 U/L (17-59); Bilirubin,Total 1.4 mg/dL (0.2-1.3); Blood Urea Nitrogen 46 mg/dL (9-20); CRP 3.6 mg/dL (<1.0); Calcium 8.4 mg/dL (8.4-10.2); Carbon Dioxide 34 mmol/L (22-30); Chloride 104 mmol/L (98-107); Estimated CRCL calculation 84 ml/min; Estimated Glomerular Filt Rate > 60; Glucose 160 mg/dL (75-110); Magnesium 2.6 mg/dL (1.6-2.3); Phosphorus 3.1 mg/dL (2.5-4.5); Potassium 5.6 mmol/L (3.4-5.0); Sodium 139 mmol/L (137-145)
[2020-08-06 07:33] LABS: INR 1.2; Prothrombin Time 15.6 Seconds (11.1-14.7)
[2020-08-06] MEDS: BUDESONIDE RESPULE NEB 0.5 MG/2 ML AMP INHALATION ×2 (08:09→21:31)
--- NOTE | 2020-08-06 08:34 | WPDINTPN ---
Progress Note: A&P Assessment and Plan (1) Acute respiratory failure with hypoxia: Code(s): J96.01 - Acute respiratory failure with hypoxia Status: Acute Assessment and Plan: Patient presented with upper respiratory symptoms, tested positive for COVID-19, fevers, chills, cough -patient is on CPAP of 8, 100% FiO2 for greater than 24 hours -patient was in impending respiratory failure, successfully intubated on 08/05/2020, currently on low tidal volume strategy for ARDS physiology, 6 mL per kg of predicted body weight -will maintain O2 sats greater than 92% and plateau pressures of <30 -currently on a PEEP of 10 and 90% FiO2, wean FiO2 as tolerated -will place patient in prone position for 14-16 hours -continue bronchodilators and pulmicort -sedation with fentanyl and Versed infusion, an add Nimbex for chemical paralysis and ventilator synchrony (2) Pneumonia due to 2019 novel coronavirus: Code(s): U07.1 - COVID-19; J12.82 - Pneumonia due to coronavirus disease 2019 Status: Acute Assessment and Plan: COVID-19 pneumonia -SARS-CoV-2 PCR positive on 07/21 -continue droplet, airborne, contact isolation and precautions -patient on dexamethasone (initiated on 07/31) -continue Remdesivir (initiated on 07/30) -patient also received convalescent plasma on 07/31 -inflammatory markers are elevated, will trend intermittently -discussed with pulmonology (3) DVT prophylaxis: Code(s): Z29.9 - Encounter for prophylactic measures, unspecified Status: Acute Assessment and Plan: Enoxaparin 40 mg subcu q.12 hours Additional Plan Discussed with significant other/ Haydee, patient's condition and plan of care. Code status: Full code Critical care time spent:35 minutes This dictation may have been done utilizing a voice recognition system. Attempts have been made to correct errors. However, there may be uncorrected grammatical, spelling, and recognition errors present. Due to a high probability of clinically significant, life threatening deterioration, the patient required my highest level of preparedness to intervene emergently and I personally spent this critical care time directly and personally managing the patient. This critical care time included obtaining a history; examining the patient; pulse oximetry; ordering and review of studies; arranging urgent treatment with development of a management plan; evaluation of patient's response to treatment; frequent reassessment; and discussions with other providers. It was exclusive of separately billable procedures and treating other patients and teaching time. Please see Assessment and Plan section and the rest of the note for further information on patient assessment and treatment Subjective Date/time seen: 08/06/20 08:34 Interval history: Reason for consult: COVID-19 pneumonia, acute hypoxic respiratory failure 08/06/2020: Patient remains intubated on CMV mode of ventilation 90% FiO2 with PEEP of 10. Patient is sedated with fentanyl, Versed and is on Nimbex for clinical paralysis. Patient is tolerating tube feeds at 20 mL/hour. Urine output has been adequate. UA did not reveal UTI the. Review of Systems Review of Systems: All systems reviewed & are unremarkable except as noted in HPI and below Exam Const: General: comfortable and no acute distress HENMT: Other: ETT in place Eyes: Sclera: sclerae normal Pupils: Equal, round and reactive pupils present Neck: Neck: supple Resp: Effort & Inspection: normal respiratory effort Auscultation: rhonchi and diminished lung sounds Cardio: Rate: regular rate Rhythm: regular rhythm GI: Inspection: non-distended GI Palp: Yes Soft to palpation and No Tenderness to palpation present (GI) Auscultation: normal bowel sounds : Other: Rodriguez catheter in place Urinary Catheter: Urinary Catheter: patent and draining and urine dark Skin: General skin exam: normal color and no rashes or lesi
[2020-08-06] MEDS: MIDAZOLAM 100MG/NS 100ML(*CRX) 100 MG/100 ML BAG IV CONT (09:08)
[2020-08-06] MEDS: ZINC SULFATE 220 MG CAPSULE PO (09:34)
[2020-08-06] MEDS: PANTOPRAZOLE SODIUM IV 40 MG VIAL IV PUSH (09:34)
[2020-08-06] MEDS: ENOXAPARIN 40 MG/0.4 ML SYRINGE SUB-Q ×2 (09:34→20:03)
[2020-08-06] MEDS: ASCORBIC ACID 500 MG TABLET PO (09:35)
[2020-08-06] MEDS: CHOLECALCIFEROL 1,000 UNITS TABLET 1000 UNITS PO (09:35)
--- NOTE | 2020-08-06 10:39 | PCDIET ---
ICU Rounding Note: Pt current nutrition is Vital 1.2 at 20ml/hr Nutrition recommendation: Recommend slow advancement to goal of 65ml/hr of Vital 1.2 Last recorded weight is 95.8kg, down from 96.1kg on assessment Bowel Motility: 08/03, recommend bowel motility agent if no BM in the next 48hrs Labs Reviewed: BUN 46, PO4 2.6, C Reactive 3.6, Glucose 160, K+ 5.6, Albumin 2.5, WBC 17.7 Meds Noted: Vitamin C, Dedadron, Fentanyl, Remdesivir, Versed, Protonix, Nimbex, Vitamin D, Zinc, Nimbex Additional Notes: Pt tolerating Vital 1.2 at 20ml/hr. Pt had poor appetite prior to arrival and while here. -132 I/O. On Nimbex and no BM since 08/03. Plan to slowly increase to goal of enteral nutrition over the next 24 hrs. Recommend 10ml advancement, q 6hrs, to goal of 65ml/hr of Vital 1.2 to provide 1716kcals, 107g protein, and 1160ml of free water. We will reassess tomorrow.
--- NOTE | 2020-08-06 12:39 | PM.IMPN ---
Progress Note: A&P Assessment and Plan (1) COVID-19 virus infection: Code(s): U07.1 - COVID-19 Status: Acute Assessment and Plan: 08/06/20 12:39 Continue With Decadron, REMdesivir, albuterol inhaler, titrate oxygen on Airvo as needed, and incentive spirometer. We discussed vitamin C and zinc but the patient is stating he does not want to take those at this time. I explained to the patient that he needs to limit his activity and do pronation every 2 hours. The patient insists on getting up and his oxygen level dropped down the 85% when he got up in the room. The patient is on high-flow at this time. He is slowly recovering from getting up. I explained that the patient needs to use his urinal at the bedside. The patient is very insistent on getting up. I explained that the patient has higher oxygen demand needs to stay in bed. I also offered him a Rodriguez catheter. We had discussed intubation as well. The patient stated that he would be intubated but does not want to live in a vegetative state. I ordered Tylenol for the fever or mild pain. Incentive spirometer. Albuterol inhaler. The patient stated that he tested positive at home with a home test from [employer]. 07/31 patient was started on dexamethasone on 07/30 05/16 and Remdesivir 05/11 patient still requiring 15 L high-flow nasal cannula and complains of shortness of breath and fatigue, patient has agreed to take convalescent plasma will also give vitamin-C and D as well as zinc, and start Symbicort. will continue to monitor and further recommendation to follow 08/01/20 patient was started on dexamethasone on 07/30 06/13 and Remdesivir 06/08 and received convalescent plasma today, also receiving symbicort, vitamin C and D as well as zinc, if there no improvement tomorrow, will increase dexamethasone to 20mg daily for 5 days, patient still requiring 15 L high-flow nasal cannula and complains of shortness of breath and fatigue,as well as poor appetite, I spoke with patient and gave he all the updates. 08/02/20 patient was started on dexamethasone on 07/30 07/14 and Remdesivir 07/09 and received convalescent plasma on 08/01 , also receiving symbicort, vitamin C and D as well as zinc, there is not improvement in patient oxygen requirement, will increase dexamethasone to 20mg daily today 08/02 for next 5 days, and continue to monitor and plan. 08/03 patient was started on dexamethasone on 07/30 07/14, today increase dexamethasone to 20mg daily for 1/5days and patient will complete 5 days course of Remdesivir today 08/08, will continue for another 5 days,and received convalescent plasma on 08/01 , also receiving symbicort, vitamin C and D as well as zinc, there is not much improvement in patient oxygen requirement, will consult executive team leader and further recommendation to follow 08/04 on 08/03 late night rapid responce was called and was hypoxic BIPAP was placed by the noctornist and transfer the patient to ICU, patient was seen by hot roller. patient was started on dexamethasone on 07/30 07/14, on 08/03 increase dexamethasone to 20mg daily for 2/5days and patient completed 5 days course of Remdesivir on 08/03 continued for additional 5 days, on 08/04 09/13 and received convalescent plasma on 08/01. patient is progressively getting worse and now requiring BIPAP, patient will be seen by pulmonology and appreciate. 08/05 today patient was more hypoxic and was using accessory muscles seen by hot roller recommended intubation for which patient and his agree and patient was intubated currently on vent unable to provide any review of symptom, seen by hot roller and appreciate, patient was started on dexamethasone on 07/30 07/14, on 08/03 increase dexamethasone to 20mg daily for 3/5days and patient completed 5 days course of Remdesivir on 08/03 continued for additional 5 days, on 08/04 10/13 and received convalescent plasma on 08/01. 08/06, 08/05 patient's symptoms were or worsen and patient was intubated on v
[2020-08-06] MEDS: METOPROLOL TARTRATE INJ 5 MG/5 ML VIAL IV PUSH (12:57)
[2020-08-06 15:23] LABS: Anion Gap -1 mmol/L (8-16); Blood Urea Nitrogen 43 mg/dL (9-20); Calcium 8.1 mg/dL (8.4-10.2); Carbon Dioxide 36 mmol/L (22-30); Chloride 105 mmol/L (98-107); Estimated CRCL calculation 84 ml/min; Estimated Glomerular Filt Rate > 60; Glucose 164 mg/dL (75-110); Potassium 5.6 mmol/L (3.4-5.0); Sodium 140 mmol/L (137-145)
[2020-08-06] MEDS: FENTANYL 2,500MCG/NS250ML(*CRX 2,500 MCG/250 ML BAG 10 MCG IV CONT (19:14)
[2020-08-06] MEDS: SODIUM POLYSTYRENE SULFONONATE 15 GM/60 ML BTL FEED TUBE (20:02)
[2020-08-06] MEDS: REMDESIVIR 100 MG/NS 250 ML 100 MG/250 ML BAG 250 MG IVPB (21:51)
[2020-08-07] VITALS (53 sets, daily range): BP systolic 81–125; BP diastolic 47–74; PULSE 111–131; RESP 26–30; TEMP 36.5–38.3; O2SAT 88–97
[2020-08-07] MEDS: IPRATROPIUM BR 0.02% INH SOLN 0.5 MG/2.5 ML VIAL INHALATION ×4 (02:34→20:20)
[2020-08-07] MEDS: ALBUTEROL SULFATE NEB 2.5 MG/0.5 ML INH 5 MG INHALATION ×4 (02:34→20:19)
[2020-08-07] MEDS: CISATRACURIUM BESYLATE 200 MG in DEXTROSE 5% 80 ML 11.56 ML IV CONT ×2 (04:13→12:54)
[2020-08-07 04:49] LABS: Basophils Percent Auto 0.1 % (0.2-1.2); Hematocrit 49.1 % (42.0-52.0); Hemoglobin 15.9 g/dL (14.0-18.0); Immature Granulocyte Absolute 0.14 K/mm3 (0.00-0.031); Immature Granulocyte Percent A 0.8 % (0-0.5); Immature Platelet Fraction Pct 10.5 % (0.9-11.2); Lymphocytes Absolute Auto 0.22 K/mm3 (0.9-3.2); Lymphocytes Percent Auto 1.2 % (18.3-44.2); Mean Corpuscular HGB Conc 32.4 g/dl (32-36); Mean Corpuscular Hemoglobin 31.6 pg (26-34); Mean Corpuscular Volume 97.6 fl (80-100); Mean Platelet Volume 11.5 fl (7.4-10.4); Monocytes Absolute Auto 0.6 K/mm3 (0.1-0.6); Monocytes Percent Auto 3.3 % (2.6-8.5); Neutrophils Absolute Auto 17.5 K/mm3 (1.3-6.7); Neutrophils Percent Auto 94.6 % (45.5-73.1); Platelet Count Result 72 k/mm3 (150-375); Red Blood Count 5.03 M/mm3 (4.6-6.20); Red Cell Distribution Width 12.6 % (11.5-14.5); White Blood Count 18.5 K/mm3 (4.5-10.0)
[2020-08-07 04:56] LABS: Alveolar/Arterial O2 Gradient 507.8 mmHg; Base Excess ABG 4.8 mEq/l (+/-2.0); Carboxyhemoglobin 0.3 % THb (0-2.0); Fractional Inspired Oxygen 95 %; HCO3 ABG 33.9 mEq/l (22.0-26.0); INR 1.2; Methemoglobin ABG 0.5 %THb (0-1.5); Oxygen Content ABG 22.1 %vol (16.0-22.0); Oxygen Saturation ABG 96.7 % (95.0-100.0); Oxyhemoglobin 96.2 % THb (90.0-100.0); PO2 FiO2 Ratio Arterial Blood 1.04 %; Prothrombin Time 15.9 Seconds (11.1-14.7); Total Hemoglobin 16.3 g/dL (12.0-18.0); pH ABG 7.305 (7.350-7.450)
[2020-08-07 04:59] LABS: PCO2 ABG 69.7 mmHg (35.0-45.0); Site Drawn RIGHT BRACHIAL
[2020-08-07 05:00] LABS: Alanine Aminotransferase 40 U/L (4-50); Albumin Level 2.4 g/dL (3.5-5.1); Alkaline Phosphatase 87 U/L (38-126); Anion Gap -1 mmol/L (8-16); Arterial Blood Gas Vent Mode CMV; Arterial Blood Gas Ventilator rate 26 /MIN; Aspartate Amino Transferase 42 U/L (17-59); Bilirubin,Total 1.5 mg/dL (0.2-1.3); Blood Urea Nitrogen 50 mg/dL (9-20); CRP 6.5 mg/dL (<1.0); Calcium 8.4 mg/dL (8.4-10.2); Carbon Dioxide 39 mmol/L (22-30); Chloride 104 mmol/L (98-107); Device VENTILATOR; Estimated CRCL calculation 68 ml/min; Estimated Glomerular Filt Rate > 60; Glucose 208 mg/dL (75-110); Lactate Dehydrogenase 864 U/L (313-618); Magnesium 2.8 mg/dL (1.6-2.3); Phosphorus 3.3 mg/dL (2.5-4.5); Potassium 5.5 mmol/L (3.4-5.0); Sodium 142 mmol/L (137-145)
[2020-08-07 05:01] LABS: Arterial Blood Gas Tidal Volume 510 ml
[2020-08-07 05:12] LABS: D Dimer 14.65 ug/mL (<0.48)
[2020-08-07] MEDS: MIDAZOLAM 100MG/NS 100ML(*CRX) 100 MG/100 ML BAG IV CONT (05:43)
[2020-08-07] MEDS: CENTRAL LINE FLUSH 10 ML IV PUSH ×3 (05:44→20:49)
[2020-08-07 07:06] LABS: Arterial Blood Gas PEEP 10 cmH2O
[2020-08-07] MEDS: ASCORBIC ACID 500 MG TABLET PO (08:15)
[2020-08-07] MEDS: CHOLECALCIFEROL 1,000 UNITS TABLET 1000 UNITS PO (08:16)
[2020-08-07] MEDS: PANTOPRAZOLE SODIUM IV 40 MG VIAL IV PUSH (08:16)
[2020-08-07] MEDS: ZINC SULFATE 220 MG CAPSULE PO (08:16)
--- NOTE | 2020-08-07 08:30 | WPDINTPN ---
Progress Note: A&P Assessment and Plan (1) Acute respiratory failure with hypoxia: Code(s): J96.01 - Acute respiratory failure with hypoxia Status: Acute Assessment and Plan: Acute respiratory failure secondary to COVID-19 pneumonia Failure noninvasive therapy and was intubated on 08/05/2020, currently on low tidal volume strategy for ARDS physiology, 6 mL per kg of predicted body weight -will maintain O2 sats greater than 92% and plateau pressures of <30 -currently on a PEEP of 10 and 90% FiO2, wean FiO2 as tolerated., increase PEEP to 12 -permissive hypercapnia -will place patient in prone position again today through night 14-16 hours -continue bronchodilators and pulmicort -sedation with fentanyl and Versed infusion, also on Nimbex for chemical paralysis and ventilator synchrony (2) Pneumonia due to 2019 novel coronavirus: Code(s): U07.1 - COVID-19; J12.82 - Pneumonia due to coronavirus disease 2019 Status: Acute Assessment and Plan: COVID-19 pneumonia -SARS-CoV-2 PCR positive on 07/21 -continue droplet, airborne, contact isolation and precautions -patient on dexamethasone (initiated on 07/31) -continue Remdesivir (initiated on 07/30). Patient is on 2 dose of second 5 day course for total of 10 day course -patient also received convalescent plasma on 07/31 -inflammatory markers are elevated, will trend intermittently -discussed with pulmonology (3) Thrombocytopenia: Code(s): D69.6 - Thrombocytopenia, unspecified Status: Acute Assessment and Plan: Gradually worsening thrombocytopenia. Likely multifactorial Low probability of hit as per 4T criteria Will hold Lovenox and switched to Fondaparinux (4) Hyperkalemia: Code(s): E87.5 - Hyperkalemia Status: Acute Assessment and Plan: Mild persistent hyperkalemia Kayexalate to be continue (5) Constipation: Code(s): K59.00 - Constipation, unspecified Status: Acute Assessment and Plan: Bowel sounds present Continue tube feeds Add scheduled MiraLax and p.r.n. Dulcolax Kayexalate (6) DVT prophylaxis: Code(s): Z29.9 - Encounter for prophylactic measures, unspecified Status: Acute Assessment and Plan: Fondaparinux Additional Plan Stress ulcer prophylaxis -PPI Nutrition - Tube Feeds Code Status - Full Code Critical care time spent:35 minutes This dictation may have been done utilizing a voice recognition system. Attempts have been made to correct errors. However, there may be uncorrected grammatical, spelling, and recognition errors present. Due to a high probability of clinically significant, life threatening deterioration, the patient required my highest level of preparedness to intervene emergently and I personally spent this critical care time directly and personally managing the patient. This critical care time included obtaining a history; examining the patient; pulse oximetry; ordering and review of studies; arranging urgent treatment with development of a management plan; evaluation of patient's response to treatment; frequent reassessment; and discussions with other providers. It was exclusive of separately billable procedures and treating other patients and teaching time. Please see Assessment and Plan section and the rest of the note for further information on patient assessment and treatment Subjective Date/time seen: 08/07/20 08:30 Overnight events reviewed Afebrile Continues to be on mechanical ventilation Continues to be on sedation and neuromuscular apple infusion Vitals acceptable Patient was placed in prone position yesterday and tolerated Continues to be on tube feeds Interval history: Reason for consult: COVID-19 pneumonia, acute hypoxic respiratory failure Review of Systems Review of Systems: ROS unobtainable: Yes unobtainable due to endotracheal tube and unobtainable due to medical condition Exam Const: General: no acute distress TONI
[2020-08-07] MEDS: ENOXAPARIN 40 MG/0.4 ML SYRINGE SUB-Q (08:43)
[2020-08-07] MEDS: BUDESONIDE RESPULE NEB 0.5 MG/2 ML AMP INHALATION ×2 (08:43→20:19)
[2020-08-07] MEDS: ALTEPLASE 2 MG VIAL (CATHFLO) IV PUSH ×2 (09:31→10:15)
[2020-08-07] MEDS: SODIUM POLYSTYRENE SULFONONATE 15 GM/60 ML BTL 30 GM PO (09:45)
[2020-08-07] MEDS: polyethylene glycoL 3350 17 GM POWD.PACK PO (09:45)
--- NOTE | 2020-08-07 12:01 | PCFNICU ---
ICU Rounding Note: Pt current nutrition is Vital 1.2 at 50 ml/hr. Last recorded weight is 95.3kg. Bowel Motility:+BM reported 08/03 Labs Reviewed:Glu 208,K 5.5,Alb 2.4 Meds Noted:Miralax,Remdesivir,Vit C,Versed, Vit D, Protonix, Nimbex. Additional Notes: Patient remains on mechanical vent. tolerating tube feedings of Vital 1.2 at 50 ml/hr goal rate at 65 ml/hr. Plasma given 07/31. Skin-good. Plans for Proning today. Following daily in ICU rounds. Assessing/reassessing every Thursday/Thursday.
[2020-08-07] MEDS: MIDAZOLAM HCL (*CRX) 2 MG/2 ML VIAL 5 MG IV PUSH (12:59)
--- NOTE | 2020-08-07 13:45 | PM.IMPN ---
Progress Note: A&P Assessment and Plan (1) COVID-19 virus infection: Code(s): U07.1 - COVID-19 Status: Acute Assessment and Plan: 08/07/20 13:45 Continue With Decadron, REMdesivir, albuterol inhaler, titrate oxygen on Airvo as needed, and incentive spirometer. We discussed vitamin C and zinc but the patient is stating he does not want to take those at this time. I explained to the patient that he needs to limit his activity and do pronation every 2 hours. The patient insists on getting up and his oxygen level dropped down the 85% when he got up in the room. The patient is on high-flow at this time. He is slowly recovering from getting up. I explained that the patient needs to use his urinal at the bedside. The patient is very insistent on getting up. I explained that the patient has higher oxygen demand needs to stay in bed. I also offered him a Rodriguez catheter. We had discussed intubation as well. The patient stated that he would be intubated but does not want to live in a vegetative state. I ordered Tylenol for the fever or mild pain. Incentive spirometer. Albuterol inhaler. The patient stated that he tested positive at home with a home test from [facility]. 07/31 patient was started on dexamethasone on 07/30 05/16 and Remdesivir 05/11 patient still requiring 15 L high-flow nasal cannula and complains of shortness of breath and fatigue, patient has agreed to take convalescent plasma will also give vitamin-C and D as well as zinc, and start Symbicort. will continue to monitor and further recommendation to follow 08/01/20 patient was started on dexamethasone on 07/30 06/13 and Remdesivir 06/08 and received convalescent plasma today, also receiving symbicort, vitamin C and D as well as zinc, if there no improvement tomorrow, will increase dexamethasone to 20mg daily for 5 days, patient still requiring 15 L high-flow nasal cannula and complains of shortness of breath and fatigue,as well as poor appetite, I spoke with patient and gave he all the updates. 08/02/20 patient was started on dexamethasone on 07/30 07/14 and Remdesivir 07/09 and received convalescent plasma on 08/01 , also receiving symbicort, vitamin C and D as well as zinc, there is not improvement in patient oxygen requirement, will increase dexamethasone to 20mg daily today 08/02 for next 5 days, and continue to monitor and plan. 08/03 patient was started on dexamethasone on 07/30 07/14, today increase dexamethasone to 20mg daily for 1/5days and patient will complete 5 days course of Remdesivir today 08/08, will continue for another 5 days,and received convalescent plasma on 08/01 , also receiving symbicort, vitamin C and D as well as zinc, there is not much improvement in patient oxygen requirement, will consult university administrator and further recommendation to follow 08/04 on 08/03 late night rapid responce was called and was hypoxic BIPAP was placed by the noctornist and transfer the patient to ICU, patient was seen by customer consulting manager. patient was started on dexamethasone on 07/30 07/14, on 08/03 increase dexamethasone to 20mg daily for 2/5days and patient completed 5 days course of Remdesivir on 08/03 continued for additional 5 days, on 08/04 09/13 and received convalescent plasma on 08/01. patient is progressively getting worse and now requiring BIPAP, patient will be seen by pulmonology and appreciate. 08/05 today patient was more hypoxic and was using accessory muscles seen by customer consulting manager recommended intubation for which patient and his agree and patient was intubated currently on vent unable to provide any review of symptom, seen by customer consulting manager and appreciate, patient was started on dexamethasone on 07/30 07/14, on 08/03 increase dexamethasone to 20mg daily for 3/5days and patient completed 5 days course of Remdesivir on 08/03 continued for additional 5 days, on 08/04 10/13 and received convalescent plasma on 08/01. 08/06, 08/05 patient's symptoms were or worsen and patient was intubated on v
[2020-08-07] MEDS: FENTANYL 2,500MCG/NS250ML(*CRX 2,500 MCG/250 ML BAG 12.5 MCG IV CONT (16:28)
[2020-08-07] MEDS: MORPHINE SULFATE (*CRX) 4 MG/ML INJ IV PUSH (17:37)
[2020-08-07] MEDS: SODIUM CHLORIDE 0.9% IV 500 ML IV CONT ×2 (17:38→22:04)
[2020-08-07] MEDS: CISATRACURIUM BESYLATE 200 MG in DEXTROSE 5% 80 ML 10.11 ML IV CONT (19:24)
[2020-08-07] MEDS: MIDAZOLAM 100MG/NS 100ML(*CRX) 100 MG/100 ML BAG 7 MG IV CONT (19:25)
[2020-08-07] MEDS: FONDAPARINUX SODIUM 2.5 MG/0.5 ML SYRINGE SUB-Q (20:47)
[2020-08-07] MEDS: REMDESIVIR 100 MG/NS 250 ML 100 MG/250 ML BAG 250 MG IVPB (20:48)
[2020-08-07] MEDS: NOREPINEPHRINE 8 MG/D5W 250 ML 8 MG/250 ML BAG 9.38 MG IV CONT (23:07)
[2020-08-08] VITALS (62 sets, daily range): BP systolic 72–129; BP diastolic 45–77; PULSE 14–162; RESP 30; TEMP 37.3–38.8; O2SAT 92–97
--- NOTE | 2020-08-08 00:43 | ECG_ITS ---
Measurements Intervals [place] Rate: 122 P: 32 SC: 117 QRS: -38 QRSD: 79 T: 73 QT: 278 QTc: 396 Interpretive Statements SINUS TACHYCARDIA WITH SHORT SC INTERVAL LEFT AXIS DEVIATION LOW QRS VOLTAGE IN PRECORDIAL LEADS ANTEROSEPTAL INFARCT, AGE INDETERMINATE BASELINE ARTIFACT- I, III, AVR, AVL ABNORMAL ECG Electronically Signed On 08-08-2020 12:31:43 CDT by Jigar Bowen D.O.
[2020-08-08 01:20] LABS: Alveolar/Arterial O2 Gradient 504.9 mmHg; Base Excess ABG -0.8 mEq/l (+/-2.0); Carboxyhemoglobin 0.1 % THb (0-2.0); Fractional Inspired Oxygen 90 %; HCO3 ABG 27.2 mEq/l (22.0-26.0); Methemoglobin ABG 0.6 %THb (0-1.5); Oxygen Content ABG 19.6 %vol (16.0-22.0); Oxygen Saturation ABG 93.5 % (95.0-100.0); Oxyhemoglobin 93.7 % THb (90.0-100.0); PCO2 ABG 58.8 mmHg (35.0-45.0); PO2 ABG 76.5 mmHg (80.0-100.0); PO2 FiO2 Ratio Arterial Blood 0.85 %; Reduced Hemoglobin 5.6 %THb (0-5.0); Site Drawn RIGHT RADIAL; Total Hemoglobin 14.9 g/dL (12.0-18.0); pH ABG 7.283 (7.350-7.450)
[2020-08-08 01:21] LABS: Arterial Blood Gas PEEP 12 cmH2O; Arterial Blood Gas Tidal Volume 510 ml; Arterial Blood Gas Vent Mode CMV; Arterial Blood Gas Ventilator rate 30 /MIN; Device VENTILATOR; Modified Allen's Test Pass
[2020-08-08] MEDS: AMIODARONE 150 MG/D5W 100 ML 150 MG/100 ML BAG 600 MG IV CONT ×6 (01:32→19:47)
[2020-08-08] MEDS: AMIODARONE 360 MG/D5W 200 ML 360 MG/200 ML BAG 33.33 MG IV CONT ×2 (01:35→20:12)
[2020-08-08 01:37] LABS: Basophils Percent Auto 0.1 % (0.2-1.2); Hematocrit 45.7 % (42.0-52.0); Hemoglobin 14.3 g/dL (14.0-18.0); Immature Granulocyte Absolute 0.31 K/mm3 (0.00-0.031); Immature Granulocyte Percent A 1.4 % (0-0.5); Immature Platelet Fraction Pct 11.8 % (0.9-11.2); Lymphocytes Absolute Auto 0.36 K/mm3 (0.9-3.2); Lymphocytes Percent Auto 1.6 % (18.3-44.2); Mean Corpuscular HGB Conc 31.3 g/dl (32-36); Mean Corpuscular Hemoglobin 31.1 pg (26-34); Mean Corpuscular Volume 99.3 fl (80-100); Mean Platelet Volume 12.4 fl (7.4-10.4); Monocytes Absolute Auto 0.7 K/mm3 (0.1-0.6); Monocytes Percent Auto 3.2 % (2.6-8.5); Neutrophils Absolute Auto 21.2 K/mm3 (1.3-6.7); Neutrophils Percent Auto 93.7 % (45.5-73.1); Platelet Count Result 74 k/mm3 (150-375); Red Cell Distribution Width 12.8 % (11.5-14.5); White Blood Count 22.7 K/mm3 (4.5-10.0)
[2020-08-08 01:44] LABS: INR 1.4; Prothrombin Time 17.3 Seconds (11.1-14.7)
[2020-08-08 01:45] LABS: Partial Thromboplastin Time 28.4 SECONDS (22.3-36.8)
[2020-08-08 01:54] LABS: Alanine Aminotransferase 35 U/L (4-50); Albumin Level 2.2 g/dL (3.5-5.1); Alkaline Phosphatase 78 U/L (38-126); Anion Gap 2 mmol/L (8-16); Aspartate Amino Transferase 36 U/L (17-59); Bilirubin,Total 1.9 mg/dL (0.2-1.3); Blood Urea Nitrogen 72 mg/dL (9-20); Calcium 7.8 mg/dL (8.4-10.2); Carbon Dioxide 36 mmol/L (22-30); Chloride 105 mmol/L (98-107); Estimated CRCL calculation 41 ml/min; Estimated Glomerular Filt Rate 40; Glucose 257 mg/dL (75-110); Phosphorus 3.1 mg/dL (2.5-4.5); Sodium 143 mmol/L (137-145)
[2020-08-08 01:55] LABS: Lactic Acid Reflex 4.1 mmol/L (0.7-2.1)
[2020-08-08] MEDS: ALBUTEROL SULFATE NEB 2.5 MG/0.5 ML INH 5 MG INHALATION ×4 (02:19→20:14)
[2020-08-08] MEDS: IPRATROPIUM BR 0.02% INH SOLN 0.5 MG/2.5 ML VIAL INHALATION ×4 (02:19→20:14)
--- NOTE | 2020-08-08 02:26 | PDCODEBLUE ---
Code Blue Note Code Blue Note Time Arrived at Code Blue: 1:40 am Initial Rhythm on Arrival: narrow complex tachycardia with rate 180s to 200s Code Blue Summary: multiple episodes of run of extreme runs of narrow complex tachycardia noted. synchronized cardioversion perfomeed which brought him down to sinus tachycardia in 110s. bp lowish overnight on levophed at 10. febrile this evening. ABG with pH 7.28, pCO2 58, lactate elvated at 4.1. Cr upt o 1.7. cxr unchanged. start vancomycin, cefepime. amiodarone gtt started after bolus. SVI noted to be 2.5%, suggestive of non responsive to fluid bolus. discused with automotive service director.
--- NOTE | 2020-08-08 02:31 | PC.NURSE ---
Code note- pt noted to have abnormal rhythm at 0100- EGK ran at this time but did not capture abnormal rhythm. Deproned patient at this time. Pt began SVT at approx 0110. Cardioverted w/ 200 J 5 times at 0110 0112 0115 0116 0138. Pulse was not lost during any events. School Psychologist Assistant on unit for code and gave orders for amnio bolus. Minister Helper called and given update with hospital intern and ICU charge present.
[2020-08-08 02:34] LABS: Procalcitonin 0.5 ng/mL
--- NOTE | 2020-08-08 03:25 | PC.NURSE ---
0200 another 200 J shock was given as well as at 0239. Dr Hughes called and made aware.
[2020-08-08 04:32] LABS: Reflex Lactic Acid Yes or No Add Lactic
[2020-08-08] MEDS: CISATRACURIUM BESYLATE 200 MG in DEXTROSE 5% 80 ML 10.11 ML IV CONT (04:41)
[2020-08-08] MEDS: CENTRAL LINE FLUSH 10 ML IV PUSH ×3 (04:44→21:24)
[2020-08-08 05:20] LABS: Lactic Acid 2.7 mmol/L (0.7-2.1)
[2020-08-08] MEDS: FENTANYL 2,500MCG/NS250ML(*CRX 2,500 MCG/250 ML BAG 15 MCG IV CONT (06:20)
[2020-08-08] MEDS: MIDAZOLAM 100MG/NS 100ML(*CRX) 100 MG/100 ML BAG 7 MG IV CONT (06:21)
[2020-08-08] MEDS: AMIODARONE 360 MG/D5W 200 ML 360 MG/200 ML BAG 16.67 MG IV CONT ×2 (07:26→14:34)
[2020-08-08] MEDS: dexmedeTOMIDine 400 MCG/100 ML 400 MCG/100 ML BAG IV CONT (07:58)
[2020-08-08] MEDS: METOPROLOL TARTRATE INJ 5 MG/5 ML VIAL IV PUSH (08:03)
[2020-08-08] MEDS: ADENOSINE IV SOLN 6 MG/2 ML VIAL 18 MG (08:04)
[2020-08-08] MEDS: CHOLECALCIFEROL 1,000 UNITS TABLET 1000 UNITS PO (08:28)
[2020-08-08] MEDS: ZINC SULFATE 220 MG CAPSULE PO (08:28)
[2020-08-08] MEDS: polyethylene glycoL 3350 17 GM POWD.PACK PO (08:28)
[2020-08-08] MEDS: PANTOPRAZOLE SODIUM IV 40 MG VIAL IV PUSH (08:29)
[2020-08-08] MEDS: ASCORBIC ACID 500 MG TABLET PO (08:29)
[2020-08-08] MEDS: DEXAMETHASONE SOD PHOS INJ 4 MG/ML VIAL 6 MG IV PUSH (08:29)
--- NOTE | 2020-08-08 08:48 | PM.CNCAR ---
Assessment and Plan Assessment and plan (1) Atrial flutter with rapid ventricular response: Code(s): I48.92 - Unspecified atrial flutter Status: Acute Assessment and Plan: Patient without prior history of heart disease has developed atrial flutter with a rapid ventricular response early this morning, and has not maintained sinus rhythm despite 3 cardioversions. Heart rate is somewhat better after 3 boluses of amiodarone and a amiodarone drip but still has RVR. Not much response to IV metoprolol other than hypotension, and to 1 dose of digoxin 0.25 mg which I ordered earlier after talking to the patient's nurse. Recommend continuing amiodarone boluses, keep amio gtt at 1 mg/min and perhaps another dose of digoxin. (Care w/ amio-dig interaction.) My try to cardiovert at another time after he has had ample time to absorb the amiodarone. Eliquis was added as an anticoagulant. Check echo and TSH. EKG. (2) Pneumonia due to 2019 novel coronavirus: Code(s): U07.1 - COVID-19; J12.82 - Pneumonia due to coronavirus disease 2019 Status: Acute Assessment and Plan: COVID pneumonia with respiratory failure requiring intubation. Sepsis (3) Acute respiratory failure with hypoxia: Code(s): J96.01 - Acute respiratory failure with hypoxia Status: Acute Assessment and Plan: Intubated. (4) RICO (acute kidney injury): Code(s): N17.9 - Acute kidney failure, unspecified Status: Acute Assessment and Plan: Acute renal failure today, non oliguric History of Present Illness History of Present Illness Consult date/time: 08/08/20 08:48 Requesting physician: Pawel Danielson MD Consult reason: Other (Arrhythmia) Reason For Visit: Covid-19infection,acute hypoxic respiratory failur Narrative: Gage Witt is a 75 y.o. WM admitted 07/30/2020 with COVID pneumonia. We have been asked to see him at the request of the hospitalist for advice and opinion regarding his supraventricular tachycardia, in consultation. He has deteriorated and intubated on 08/05/2020. He has been on Levophed and has a lactic acidosis. Around 1:30 this morning he went into an atrial tachycardia heart rate 180s to 200s initially thought to be an SVT and was cardioverted. He kept going back into the tachycardia requiring perhaps 3 more cardioversions and about 3 boluses of amiodarone; currently on an amio gtt at 1 mg/min He was given a dose of metoprolol 5 mg but this was met with a decline in his blood pressure. Review of Systems Review of Systems: Narrative: ROS obtained fr the pt's RN, the director of real estate and EMR ROS unobtainable: Yes unobtainable due to endotracheal tube, unobtainable due to medical condition and unobtainable due to mental status Cardiovascular: Cardiovascular: Reports palpitations Respiratory: Respiratory: Reports dyspnea on exertion Gastrointestinal: Gastrointestinal: Denies hematochezia Genitourinary: Genitourinary: Denies hematuria Psychiatric: Psychiatric: Reports confusion (Sedated) [facility] Past Medical History Medical History Chronic GERD History of prostate cancer Seasonal allergies Surgical History Surgical History H/O hernia repair X2 History of appendectomy History of prostatectomy S/P tonsillectomy and adenoidectomy Family History Family History Mother Breast cancer Father Emphysema lung Social History Social History Social History: The patient is retired from being self-employed. The patient is and his is his durable power paintings conservator for healthcare. The patient is a full code but do
[2020-08-08] MEDS: BUDESONIDE RESPULE NEB 0.5 MG/2 ML AMP INHALATION ×2 (08:55→20:14)
--- NOTE | 2020-08-08 08:58 | WPDINTPN ---
Progress Note: A&P Assessment and Plan (1) Acute respiratory failure with hypoxia: Code(s): J96.01 - Acute respiratory failure with hypoxia Status: Acute Assessment and Plan: Acute respiratory failure secondary to COVID-19 pneumonia Failure noninvasive therapy and was intubated on 08/05/2020, currently on low tidal volume strategy for ARDS physiology, 6 mL per kg of predicted body weight -will maintain O2 sats greater than 92% and plateau pressures of <30 -currently on a PEEP of 12 and 90% FiO2, wean FiO2 as tolerated. -permissive hypercapnia -patient was placed in prone position overnight but due to hemodynamic issues and deterioration patient was placed back in supine position around midnight. -will re-attempt prone position once patient is hemodynamically stable -continue bronchodilators and pulmicort -sedation with fentanyl and Versed infusion, also on Nimbex for chemical paralysis and ventilator synchrony (2) Pneumonia due to 2019 novel coronavirus: Code(s): U07.1 - COVID-19; J12.82 - Pneumonia due to coronavirus disease 2019 Status: Acute Assessment and Plan: COVID-19 pneumonia -SARS-CoV-2 PCR positive on 07/21 -continue droplet, airborne, contact isolation and precautions -patient on dexamethasone (initiated on 07/31). Now at 6 milligram per day dosing -continue Remdesivir (initiated on 07/30). Patient is on 2nd course of Remdesivir. I will discontinue it in light of worsening renal function as there is no proven benefit of extended course -patient also received convalescent plasma on 07/31 -inflammatory markers are elevated, will trend intermittently (3) Atrial flutter with rapid ventricular response: Code(s): I48.92 - Unspecified atrial flutter Status: Acute Assessment and Plan: I gave patient adenosine 6 mg and 12 mg this morning which showed patient was in atrial flutter with RVR He was started on amiodarone infusion last night. He failed 4x attempts of cardioversion I will give another bolus of amiodarone this morning. Lopressor 5 mg IV x1 Also added Precedex infusion Consult cardiology Change to Arixtra to therapeutic dose Eliquis (4) Fever: Code(s): R50.9 - Fever, unspecified Status: Acute Assessment and Plan: Patient had fever last night and in light of his hemodynamic deterioration patient was started on empiric antibiotic therapy in form of vancomycin and cefepime UA does not suggest UTI. No increase or change in respiratory secretions. Chest x-ray also not significantly changed Blood and urine culture sent (5) RICO (acute kidney injury): Code(s): N17.9 - Acute kidney failure, unspecified Status: Acute Assessment and Plan: Creatinine this morning elevated to 1.7 500 cc normal saline bolus was given last night. Will continue cautious hydration for another 10 hours with 100 mL/hour (6) Thrombocytopenia: Code(s): D69.6 - Thrombocytopenia, unspecified Status: Acute Assessment and Plan: Gradually worsening thrombocytopenia. Likely multifactorial Low probability of hit as per 4T criteria Will hold Lovenox and switched to Fondaparinux (7) Hyperkalemia: Code(s): E87.5 - Hyperkalemia Status: Acute Assessment and Plan: Mild persistent hyperkalemia. Improved with Kayexalate (8) Constipation: Code(s): K59.00 - Constipation, unspecified Status: Acute Assessment and Plan: Bowel sounds present Continue tube feeds Continue scheduled MiraLax and p.r.n. Dulcolax (9) DVT prophylaxis: Code(s): Z29.9 - Encounter for prophylactic measures, unspecified Status: Acute Assessment and Plan: Eliquis Additional Plan Stress ulcer prophylaxis -PPI Nutrition - Tube Feeds Code Status - Full Code I called both contact numbers listed in the chart and left a voicemail Critical care time spent:45 minutes This dictation may have been done utilizing a voice
[2020-08-08] MEDS: DIGOXIN INJ 250 MCG/ML 2 ML AMP (*BKC) IV PUSH (09:15)
[2020-08-08] MEDS: SODIUM CHLORIDE 0.9% IV 1,000 ML 100 ML IV CONT (09:51)
--- NOTE | 2020-08-08 10:45 | PCFNICU ---
ICU Rounding Note: Pt current nutrition is Vital AF 1.2 at 65 ml/hr. Last recorded weight is 97.6kg, up from 96.1 kg on admit. Bowel Motility:Last BM reported 08/03. Laxatives noted. Bowel sounds present. Labs Reviewed:Cr 1.7,BUN 72,Alb 2.2 Meds Noted:Miralax,Remdesivir,Vit C,Versed, Vit D, Protonix, Nimbex,Fentanyl,Decadron, Levophed,Zinc, Vancomycin, Dulcolax PRN. Additional Notes: Patient remains on mechanical vent. Failed x 4 attempts of cardioversion. Edema noted. Tube feedings remain at Vital AF 1.2 at 65 ml/hr and tolerating. Following daily in ICU rounds. Assessing/reassessing every Thursday and Thursday.
--- NOTE | 2020-08-08 11:38 | ECG_ITS ---
Measurements Intervals [place] Rate: 139 P: MD: 0 QRS: -36 QRSD: 116 T: 81 QT: 274 QTc: 417 Interpretive Statements ATRIAL FLUTTER/TACHYCARDIA WITH RAPID VENTRICULAR RESPONSE LEFT AXIS DEVIATION INCOMPLETE RIGHT BUNDLE BRANCH BLOCK BORDERLINE T WAVE ABNORMALITY- HIGH LATERAL LEADS BASELINE ARTIFACT- I, II, AVF ABNORMAL ECG Electronically Signed On 08-08-2020 14:06:45 CDT by Jigar Bowen D.O.
--- NOTE | 2020-08-08 11:39 | WPDPROCEDUR ---
Procedures Arterial Line Arterial Line Date: 08/08/20 Arterial Line Time: 10:30 Discussed with the patient/family/POA, the placement of an arterial catheter, including its clinical necessity/indication and associated potential risks, benefits and alternatives.: Yes Patient/family/POA and/or understands and acknowledges the need to proceed with the arterial catheter insertion as an important element of the patient's clinical management.: Yes Time Out Performed: Yes Patient Position: supine Decorator Lighting Fixtures Prep: sterile gown, sterile gloves, mask and hat Site: right and femoral Site Prep: chlorhexidine Technique used: ultrasound-guided Length: 12 cm Closure/Dressing: suture and transparent dressing Patient tolerated procedure: well Complications: none
--- NOTE | 2020-08-08 11:40 | WPDPROCEDUR ---
Procedures Central Line Placement Right IJ: Central Line Date: 08/08/20 Central Line Time: 11:00 Discussed w/ the patient/family/POA,the placement of a central venous catheter, including its clinical necessity/indication & associated potential risks, benifits and alternatives.: Yes The patient/family/POA understand(s) and acknowledge(s) the need to proceed with central venous catheter insertion as an important element of the patient's clinical management.: Yes Consent: Consent was obtained from pt's by phone Time Out Performed: Yes Patient Position: supine Patient placed on monitor/pulse ox: Yes Provider Prep: mask, sterile gown, sterile gloves, Max. sterile barrier precautions, cap and hand hygiene with conventional soap/water or alcohol based hand rub Central line prep: 2% Chlorhexidine scrub and sterile full body sheet applied Sterile US Technique with sterile gel/sterile probe covers: Yes Central line lumen inserted: triple Length (cm): 16 Depth of Insertion (cm): 16 Post Procedure: sutured in place, good blood return, all ports aspirated, flushed, capped, transparent dressing and aseptic technique maintained throughout procedure Post procedure x-ray: tip of catheter in good position and no pneumothorax seen Patient tolerated procedure: well Complications: none
--- NOTE | 2020-08-08 11:41 | PM.EVENT ---
Event Note Event Note Event Note: Patient had PICC line which was not drawing blood despite using Cathflo. It was double-lumen PICC and was not enough for all the infusion the patient is on. Patient also now hypotensive with a flutter and on Levophed. Central venous catheter right IJ and right femoral arterial line placed for central access and accurate blood pressure monitoring and frequent ABGs after obtaining consent from patient's by phone. Discuss with cardiology regarding atrial flutter and will continue amiodarone 1 milligram/minute and will give additional dose of digoxin later in the day
[2020-08-08 12:10] LABS: pH ABG 7.296 (7.350-7.450)
[2020-08-08 12:13] LABS: Alveolar/Arterial O2 Gradient 424.9 mmHg; Base Excess ABG 4.3 mEq/l (+/-2.0); HCO3 ABG 33.1 mEq/l (22.0-26.0); Oxygen Saturation ABG 92.4 % (95.0-100.0); PCO2 ABG 69.5 mmHg (35.0-45.0); Total Hemoglobin 14.2 g/dL (12.0-18.0)
[2020-08-08 12:14] LABS: Device VENTILATOR; Fractional Inspired Oxygen 80 %; Oxygen Content ABG 18.7 %vol (16.0-22.0); Oxyhemoglobin 93.8 % THb (90.0-100.0); PO2 FiO2 Ratio Arterial Blood 0.91 %; Site Drawn ARTLINE
[2020-08-08 12:16] LABS: PO2 ABG 72.5 mmHg (80.0-100.0)
[2020-08-08 12:18] LABS: Arterial Blood Gas PEEP 12 cmH2O; Arterial Blood Gas Pressure Support 0 cmH2O; Arterial Blood Gas Tidal Volume 510 ml; Arterial Blood Gas Vent Mode CMV; Arterial Blood Gas Ventilator rate 30 /MIN
[2020-08-08] MEDS: NOREPINEPHRINE 8 MG/D5W 250 ML 8 MG/250 ML BAG 37.5 MG IV CONT (12:24)
[2020-08-08] MEDS: VASOPRESSIN INJ 100 UNITS in DEXTROSE 5% 95 ML IV CONT (12:50)
[2020-08-08] MEDS: dexmedeTOMIDine 400 MCG/100 ML 400 MCG/100 ML BAG 11.91 MCG IV CONT (13:04)
[2020-08-08] MEDS: SODIUM BICARBONATE 8.4% 50 MEQ/50 ML SYRINGE 100 MEQ IV PUSH (14:13)
[2020-08-08] MEDS: DIGOXIN INJ 250 MCG/ML 2 ML AMP (*BKC) 500 MCG IV PUSH (14:32)
[2020-08-08] MEDS: CISATRACURIUM BESYLATE 200 MG in DEXTROSE 5% 80 ML 13 ML IV CONT (16:20)
[2020-08-08] MEDS: ALBUMIN HUMAN 25% 25 GM/100 ML 100 ML IVPB (17:38)
--- NOTE | 2020-08-08 19:07 | PM.IMPN ---
Progress Note: A&P Assessment and Plan (1) COVID-19 virus infection: Code(s): U07.1 - COVID-19 Status: Acute Assessment and Plan: 08/07/20 13:45 Continue With Decadron, REMdesivir, albuterol inhaler, titrate oxygen on Airvo as needed, and incentive spirometer. We discussed vitamin C and zinc but the patient is stating he does not want to take those at this time. I explained to the patient that he needs to limit his activity and do pronation every 2 hours. The patient insists on getting up and his oxygen level dropped down the 85% when he got up in the room. The patient is on high-flow at this time. He is slowly recovering from getting up. I explained that the patient needs to use his urinal at the bedside. The patient is very insistent on getting up. I explained that the patient has higher oxygen demand needs to stay in bed. I also offered him a Rodriguez catheter. We had discussed intubation as well. The patient stated that he would be intubated but does not want to live in a vegetative state. I ordered Tylenol for the fever or mild pain. Incentive spirometer. Albuterol inhaler. The patient stated that he tested positive at home with a home test from [facility]. 07/31 patient was started on dexamethasone on 07/30 05/16 and Remdesivir 05/11 patient still requiring 15 L high-flow nasal cannula and complains of shortness of breath and fatigue, patient has agreed to take convalescent plasma will also give vitamin-C and D as well as zinc, and start Symbicort. will continue to monitor and further recommendation to follow 08/01/20 patient was started on dexamethasone on 07/30 06/13 and Remdesivir 06/08 and received convalescent plasma today, also receiving symbicort, vitamin C and D as well as zinc, if there no improvement tomorrow, will increase dexamethasone to 20mg daily for 5 days, patient still requiring 15 L high-flow nasal cannula and complains of shortness of breath and fatigue,as well as poor appetite, I spoke with patient and gave he all the updates. 08/02/20 patient was started on dexamethasone on 07/30 07/14 and Remdesivir 07/09 and received convalescent plasma on 08/01 , also receiving symbicort, vitamin C and D as well as zinc, there is not improvement in patient oxygen requirement, will increase dexamethasone to 20mg daily today 08/02 for next 5 days, and continue to monitor and plan. 08/03 patient was started on dexamethasone on 07/30 07/14, today increase dexamethasone to 20mg daily for 1/5days and patient will complete 5 days course of Remdesivir today 08/08, will continue for another 5 days,and received convalescent plasma on 08/01 , also receiving symbicort, vitamin C and D as well as zinc, there is not much improvement in patient oxygen requirement, will consult manager development and further recommendation to follow 08/04 on 08/03 late night rapid responce was called and was hypoxic BIPAP was placed by the noctornist and transfer the patient to ICU, patient was seen by spot welder line. patient was started on dexamethasone on 07/30 07/14, on 08/03 increase dexamethasone to 20mg daily for 2/5days and patient completed 5 days course of Remdesivir on 08/03 continued for additional 5 days, on 08/04 09/13 and received convalescent plasma on 08/01. patient is progressively getting worse and now requiring BIPAP, patient will be seen by pulmonology and appreciate. 08/05 today patient was more hypoxic and was using accessory muscles seen by spot welder line recommended intubation for which patient and his agree and patient was intubated currently on vent unable to provide any review of symptom, seen by spot welder line and appreciate, patient was started on dexamethasone on 07/30 07/14, on 08/03 increase dexamethasone to 20mg daily for 3/5days and patient completed 5 days course of Remdesivir on 08/03 continued for additional 5 days, on 08/04 10/13 and received convalescent plasma on 08/01. 08/06, 08/05 patient's symptoms were or worsen and patient was intubated on v
[2020-08-08] MEDS: APIXABAN 5 MG TABLET PO (20:04)
[2020-08-08] MEDS: NOREPINEPHRINE 8 MG/D5W 250 ML 8 MG/250 ML BAG 28.13 MG IV CONT (21:21)
[2020-08-08] MEDS: MIDAZOLAM 100MG/NS 100ML(*CRX) 100 MG/100 ML BAG 6 MG IV CONT (21:43)
[2020-08-08] MEDS: dexmedeTOMIDine 400 MCG/100 ML 400 MCG/100 ML BAG 19.06 MCG IV CONT (23:16)
[2020-08-08] MEDS: CISATRACURIUM BESYLATE 200 MG in DEXTROSE 5% 80 ML 15.89 ML IV CONT (23:18)
[2020-08-08 23:26] LABS: Glucose Point of Care 245 (65-105)
[2020-08-09] VITALS (67 sets, daily range): BP systolic 82–115; BP diastolic 42–77; PULSE 8–156; RESP 30; TEMP 36.8–39; O2SAT 89–95
[2020-08-09] MEDS: INSULIN ASPART (*BKC) 100 UNITS/ML SUB-Q ×6 (00:12→20:12)
[2020-08-09] MEDS: ALBUMIN HUMAN 25% 25 GM/100 ML 100 ML IVPB ×5 (00:13→23:08)
[2020-08-09] MEDS: ACETAMINOPHEN ELIXIR 325 MG/10.15 ML UDC 650 MG PO ×4 (00:17→18:27)
[2020-08-09] MEDS: FENTANYL 2,500MCG/NS250ML(*CRX 2,500 MCG/250 ML BAG 15 MCG IV CONT ×2 (00:23→16:05)
[2020-08-09] MEDS: ALBUTEROL SULFATE NEB 2.5 MG/0.5 ML INH 5 MG INHALATION (01:51)
[2020-08-09] MEDS: IPRATROPIUM BR 0.02% INH SOLN 0.5 MG/2.5 ML VIAL INHALATION (01:51)
[2020-08-09] MEDS: AMIODARONE 360 MG/D5W 200 ML 360 MG/200 ML BAG 33.33 MG IV CONT ×4 (02:58→20:24)
[2020-08-09] MEDS: dexmedeTOMIDine 400 MCG/100 ML 400 MCG/100 ML BAG 19.06 MCG IV CONT (04:56)
[2020-08-09 04:58] LABS: Basophils Percent Auto 0.1 % (0.2-1.2); Hematocrit 36.4 % (42.0-52.0); Hemoglobin 11.4 g/dL (14.0-18.0); Immature Granulocyte Absolute 0.33 K/mm3 (0.00-0.031); Immature Granulocyte Percent A 2.1 % (0-0.5); Immature Platelet Fraction Pct 11.9 % (0.9-11.2); Lymphocytes Absolute Auto 0.56 K/mm3 (0.9-3.2); Lymphocytes Percent Auto 3.6 % (18.3-44.2); Mean Corpuscular HGB Conc 31.3 g/dl (32-36); Mean Corpuscular Hemoglobin 31.1 pg (26-34); Mean Corpuscular Volume 99.2 fl (80-100); Mean Platelet Volume 12.5 fl (7.4-10.4); Monocytes Absolute Auto 0.7 K/mm3 (0.1-0.6); Monocytes Percent Auto 4.5 % (2.6-8.5); Neutrophils Absolute Auto 14.1 K/mm3 (1.3-6.7); Neutrophils Percent Auto 89.7 % (45.5-73.1); Nucleated Red Blood Cells Perc 0.1 % (0.0-0.2); Platelet Count Result 53 k/mm3 (150-375); Red Blood Count 3.67 M/mm3 (4.6-6.20); Red Cell Distribution Width 12.9 % (11.5-14.5); White Blood Count 15.7 K/mm3 (4.5-10.0)
[2020-08-09 05:09] LABS: Alveolar/Arterial O2 Gradient 459.7 mmHg; Base Excess ABG 5.3 mEq/l (+/-2.0); Carboxyhemoglobin 0.3 % THb (0-2.0); Fractional Inspired Oxygen 85 %; HCO3 ABG 31.8 mEq/l (22.0-26.0); Methemoglobin ABG 0.4 %THb (0-1.5); Oxygen Content ABG 16.5 %vol (16.0-22.0); Oxygen Saturation ABG 96.3 % (95.0-100.0); Oxyhemoglobin 95.6 % THb (90.0-100.0); PCO2 ABG 56.1 mmHg (35.0-45.0); PO2 ABG 88.2 mmHg (80.0-100.0); PO2 FiO2 Ratio Arterial Blood 1.04 %; Reduced Hemoglobin 3.7 %THb (0-5.0); Total Hemoglobin 12.2 g/dL (12.0-18.0); pH ABG 7.372 (7.350-7.450)
[2020-08-09 05:12] LABS: Alanine Aminotransferase 27 U/L (4-50); Albumin Level 2.4 g/dL (3.5-5.1); Alkaline Phosphatase 50 U/L (38-126); Anion Gap 1 mmol/L (8-16); Aspartate Amino Transferase 30 U/L (17-59); Bilirubin,Total 1.9 mg/dL (0.2-1.3); Blood Urea Nitrogen 91 mg/dL (9-20); CRP 4.5 mg/dL (<1.0); Calcium 7.2 mg/dL (8.4-10.2); Carbon Dioxide 38 mmol/L (22-30); Chloride 98 mmol/L (98-107); Estimated CRCL calculation 34 ml/min; Estimated Glomerular Filt Rate 31; Glucose 344 mg/dL (75-110); Lactate Dehydrogenase 682 U/L (313-618); Magnesium 2.9 mg/dL (1.6-2.3); Phosphorus 2.7 mg/dL (2.5-4.5); Potassium 5.5 mmol/L (3.4-5.0); Sodium 137 mmol/L (137-145)
[2020-08-09 05:14] LABS: Device VENTILATOR; Site Drawn ARTLINE
[2020-08-09 05:15] LABS: Arterial Blood Gas PEEP 12 cmH2O; Arterial Blood Gas Tidal Volume 510 ml; Arterial Blood Gas Vent Mode CMV; Arterial Blood Gas Ventilator rate 30 /MIN
[2020-08-09 05:27] LABS: D Dimer 6.63 ug/mL (<0.48)
[2020-08-09 05:38] LABS: Thyroid Stimulating Hormone < 0.015 uIU/mL (0.465-4.680)
[2020-08-09] MEDS: CISATRACURIUM BESYLATE 200 MG in DEXTROSE 5% 80 ML 14.45 ML IV CONT (05:38)
[2020-08-09] MEDS: CENTRAL LINE FLUSH 10 ML IV PUSH ×3 (05:38→20:15)
[2020-08-09 06:48] LABS: Ferritin > 2000.00 ng/mL (11.1-264)
[2020-08-09] MEDS: NOREPINEPHRINE 8 MG/D5W 250 ML 8 MG/250 ML BAG 30 MG IV CONT ×2 (07:20→23:07)
[2020-08-09] MEDS: BUDESONIDE RESPULE NEB 0.5 MG/2 ML AMP INHALATION (08:29)
--- NOTE | 2020-08-09 08:40 | PCRCNOTE ---
Made albuterol/Ipratropium bromide q6 prn for wheezing per Dr. Hughes, and dcd budesonide
[2020-08-09] MEDS: INSULIN GLARGINE (*BKC) 100 UNITS/ML 20 UNITS SUB-Q (09:28)
[2020-08-09] MEDS: INSULIN HUMAN REGULAR (*BKC) 100 UNITS/ML IV PUSH (09:28)
[2020-08-09] MEDS: SODIUM POLYSTYRENE SULFONONATE 15 GM/60 ML BTL 30 GM PO (09:29)
[2020-08-09] MEDS: ASCORBIC ACID 500 MG TABLET PO (09:30)
[2020-08-09] MEDS: ZINC SULFATE 220 MG CAPSULE PO (09:30)
[2020-08-09] MEDS: APIXABAN 5 MG TABLET PO ×2 (09:30→20:12)
[2020-08-09] MEDS: CHOLECALCIFEROL 1,000 UNITS TABLET 1000 UNITS PO (09:30)
[2020-08-09] MEDS: PANTOPRAZOLE SODIUM IV 40 MG VIAL IV PUSH (09:30)
[2020-08-09] MEDS: ASPIRIN 325 MG TABLET PO (09:30)
[2020-08-09] MEDS: polyethylene glycoL 3350 17 GM POWD.PACK PO (09:30)
[2020-08-09] MEDS: DEXAMETHASONE SOD PHOS INJ 4 MG/ML VIAL 6 MG IV PUSH (09:31)
[2020-08-09] MEDS: METOPROLOL TARTRATE INJ 5 MG/5 ML VIAL IV PUSH ×3 (09:31→20:12)
--- NOTE | 2020-08-09 09:48 | WPDINTPN ---
Progress Note: A&P Assessment and Plan (1) Acute respiratory failure with hypoxia: Code(s): J96.01 - Acute respiratory failure with hypoxia Status: Acute Assessment and Plan: Acute respiratory failure secondary to COVID-19 pneumonia Failure noninvasive therapy and was intubated on 08/05/2020, currently on low tidal volume strategy for ARDS physiology, 6 mL per kg of predicted body weight -will maintain O2 sats greater than 92% and plateau pressures of <30 -currently on a PEEP of 12 and 85% FiO2, wean FiO2 as tolerated. -permissive hypercapnia -patient was not placed in prone position overnight due to uncontrolled atrial flutter and hemodynamic issues -will re-attempt prone position once patient is hemodynamically stable -continue bronchodilators and pulmicort -sedation with fentanyl and Versed infusion, also on Nimbex for chemical paralysis and ventilator synchrony (2) Pneumonia due to 2019 novel coronavirus: Code(s): U07.1 - COVID-19; J12.82 - Pneumonia due to coronavirus disease 2019 Status: Acute Assessment and Plan: COVID-19 pneumonia -SARS-CoV-2 PCR positive on 07/21 -continue droplet, airborne, contact isolation and precautions -patient on dexamethasone (initiated on 07/31). Now at 6 milligram per day dosing -continue Remdesivir (initiated on 07/30). Patient was on 2nd course of Remdesivir. I discontinued it on 08/08 in light of worsening renal function as there is no proven benefit of extended course -patient also received convalescent plasma on 07/31 -inflammatory markers are persistently elevated, will trend intermittently (3) Atrial flutter with rapid ventricular response: Code(s): I48.92 - Unspecified atrial flutter Status: Acute Assessment and Plan: I gave patient adenosine 6 mg and 12 mg 5/ morning which showed patient was in atrial flutter with RVR He was started on amiodarone infusion last night. He failed 4x attempts of cardioversion Discuss with cardiology yesterday. Digoxin is add. Amiodarone infusion was continue. Even Precedex was added but did not help Persistent tachycardia. Will discuss with cardiology regarding re-attempt in cardioversion since patient has been on amiodarone. His TSH came back low suggestive of hyperthyroidism. Check T3 and T4. Added IV Lopressor On therapeutic dose Eliquis (4) Fever: Code(s): R50.9 - Fever, unspecified Status: Acute Assessment and Plan: On and off fever Continue empiric antibiotic therapy in form of vancomycin and cefepime UA did not suggest UTI. No increase or change in respiratory secretions. Chest x-ray also did not significantly changed Procalcitonin level is normal Blood culture sent and pending (5) RICO (acute kidney injury): Code(s): N17.9 - Acute kidney failure, unspecified Status: Acute Assessment and Plan: Creatinine to worsen although patient has adequate urine output Patient was given IV fluids yesterday. Will hold further IV fluids at this time due to COVID pneumonia and severe hypoxia Check CK level Consult nephrology (6) Thrombocytopenia: Code(s): D69.6 - Thrombocytopenia, unspecified Status: Acute Assessment and Plan: Gradually worsening thrombocytopenia. Likely multifactorial Low probability of hit as per 4T criteria Patient was on Lovenox and was switched to DVT prophylactic dose off Fondaparinux. Later patient went into atrial flutter with RVR was started on therapeutic dose of Eliquis. Patient is otherwise at high risk of DVT due to elevated D-dimer from COVID-19 pneumonia. Will hold Eliquis only if platelets are below 50,000 (7) Hyperkalemia: Code(s): E87.5 - Hyperkalemia Status: Acute Assessment and Plan: Mild hyperkalemia. Resume Kayexalate . Will also give 5 units of insulin IV as patient is hyperglycemic (8) Constipation: Code(s): K59.00 - Constipation, unspecified Status: Acute A
[2020-08-09 10:17] LABS: Glucose Point of Care 283 (65-105)
--- NOTE | 2020-08-09 11:41 | PCDIET ---
ICU Rounding Note: Pt current nutrition is Vital 1.2 at 65ml/hr Nutrition recommendation: agree Last recorded weight is 103.7kg, up from assessed wt of 96.1kg (+1067 I/O) Bowel Motility: No BM, on motility agents Labs Reviewed:TSH .015, WBC 15.7, Albumin 2.4, Mg 2.9, Ferritin over 2000, C Reactive 4.5, Cr 2.10, GFR 31, BUN 91 K 5.5 Meds Noted:Vit D, Zinc, Insulin, Versed, Lopressor, Levophed, Miralax, Vancomycin, Protonix, Fentanyl ,Decadron, Vitamin C, Albumin Additional Notes: Pt with no BM yet. Miralax provided. May benefit from Reglan and additional motility agents. Tolerating feedings at this time at goal. Abdomen soft with 0 residuals. Following daily in ICU rounds. Assessing/reassessing q T/F.
[2020-08-09] MEDS: CISATRACURIUM BESYLATE 200 MG in DEXTROSE 5% 80 ML 13 ML IV CONT (11:57)
[2020-08-09] MEDS: DIGOXIN INJ 250 MCG/ML 2 ML AMP (*BKC) IV PUSH (12:01)
[2020-08-09] MEDS: MIDAZOLAM 100MG/NS 100ML(*CRX) 100 MG/100 ML BAG 6 MG IV CONT (12:20)
[2020-08-09 12:53] LABS: Glucose Point of Care 242 (65-105)
--- NOTE | 2020-08-09 13:31 | PM.CNNEP ---
Assessment and Plan Assessment and plan (1) RICO (acute kidney injury): Code(s): N17.9 - Acute kidney failure, unspecified Status: Acute Assessment and Plan: The patient has acute kidney injury. It seems like much of the trouble started when his rhythm became unstable. Patient could have pre renal azotemia on the basis of the decreased cardiac output from the rhythm. He is hypotensive and is on pressors and so could have pre renal azotemia on that basis and also could have ATN as well. I do not think the patient is gotten any medications that would do this. He has not received any contrast since July 31 and that is long gone by now. Will check urine electrolytes and eosinophils. Check an ultrasound of his kidneys. (2) Pneumonia due to 2019 novel coronavirus: Code(s): U07.1 - COVID-19; J12.82 - Pneumonia due to coronavirus disease 2019 Status: Acute Assessment and Plan: Patient is getting room does severe and Dexamethasone. He is getting considerable supportive care with ventilator pressors etc. (3) Shock: Code(s): R57.9 - Shock, unspecified Status: Acute Assessment and Plan: Patient is on norepinephrine at 18 mics and also vasopressin at 0.04 mics. blood cultures are negative. He is on broad-spectrum antibiotics. (4) Hyperthyroidism: Code(s): E05.90 - Thyrotoxicosis, unspecified without thyrotoxic crisis or storm Status: Acute Assessment and Plan: TSH is low but T4 and T3 are pending (5) Atrial flutter with rapid ventricular response: Code(s): I48.92 - Unspecified atrial flutter Status: Acute Assessment and Plan: heart rate still running in the 130s and 140s. On amiodarone And p.r.n. metoprolol. (6) Hyperglycemia: Code(s): R73.9 - Hyperglycemia, unspecified Status: Acute Assessment and Plan: On insulin sliding scale (7) Hyperkalemia: Code(s): E87.5 - Hyperkalemia Status: Acute Assessment and Plan: Potassium is mildly high today. He received some Kayexalate. (8) History of prostate cancer: Code(s): Z85.46 - Personal history of malignant neoplasm of prostate Status: Acute History of Present Illness Reason for Consult Consult date: 08/09/20 Chief Complaint Chief complaint: Covid-19infection,acute hypoxic respiratory failur History of Present Illness Narrative: Gage is and unfortunate 75-year-old gentleman who has COVID pneumonia and renal failure. He was previously healthy except for GERD. Over the last couple of weeks before the hospital stay the patient was having progressively worse cough body aches and fevers. He went to urgent care in got a Z-Micky. At that time he refuse the COVID test. However a few days later he went to [facility]'s and body home rapid test which came back positive. He continued to worsen and so he came to the ER. There he was hypoxic. He was placed on oxygen and admitted to the floor. The patient was very anxious. At 1st he was refusing to be placed in the prone state. He would not sit in bed. He continued to try to get up. He into the [facility] high flow oxygen and then eventually on a BiPAP. The patient was placed on Dexamethasone and REM does severe. He also received plasma. His respiratory situation worsened. There was a rapid response on the . At that point he continued on the BiPAP. On the he was transferred to the ICU. He had another round of Remdesivir On the 2nd he was intubated. He had multiple episodes of narrow complex tachycardia. He was treated with various meds such as metoprolol amiodarone and digoxin. Cardiology was consulted. The patient continues to be very ill. he is on norepinephrine and vasopressin For severe hypotension. He continues on amiodarone for his heart rhythm. His ventilator settings are FiO2 of 80%. He is on disatracurium. He cannot be leon
--- NOTE | 2020-08-09 14:40 | PM.EVENT ---
Event Note Event Note Event Note: I spoke to patient's Rosenda by phone today. She has been discharged from hospital. I updated her with patient's current condition including respiratory failure acute kidney injury shock and difficult to control atrial flutter with RVR. I also explained her the current treatment plan, expected prognosis and different potential outcomes. She feels the patient will not want to poor quality of life including trach PEG and may not want hemodialysis. She is hoping for a miracle but understands the reality of situation. She has decided, in accordance with patient's wishes, to continue medical therapy but do not resuscitate pt in case of cardiac arrest. I have made pt DNR in chart. She she told me that she will consider comfort care if patient reaches a point of needing hemodialysis.
[2020-08-09] MEDS: NOREPINEPHRINE 8 MG/D5W 250 ML 8 MG/250 ML BAG 33.75 MG IV CONT (14:53)
[2020-08-09 15:15] LABS: Creatine Kinase 92 U/L (55-170)
[2020-08-09 15:39] LABS: Creatinine Urine 89.7 mg/dL; Total Protein Urine Random 31 mg/dL; Ur Ttl Prot Creatinine Ratio 0.35 mg/mg (0-0.20)
[2020-08-09 15:47] LABS: Sodium Urine Random 19 meq/L
[2020-08-09 15:57] LABS: Eosinophil Urine None Seen % (None Seen)
[2020-08-09 16:55] LABS: Heparin Induced Platelet Antib Negative (Negative)
[2020-08-09 18:47] LABS: Glucose Point of Care 203 (65-105)
[2020-08-09 18:57] LABS: Hematocrit 34.8 % (42.0-52.0); Hemoglobin 10.8 g/dL (14.0-18.0); Mean Corpuscular Hemoglobin 31.2 pg (26-34); Mean Corpuscular Volume 100.6 fl (80-100); Mean Platelet Volume 12.6 fl (7.4-10.4); Platelet Count Result 52 k/mm3 (150-375); Red Blood Count 3.46 M/mm3 (4.6-6.20); Red Cell Distribution Width 13.3 % (11.5-14.5); White Blood Count 17.9 K/mm3 (4.5-10.0)
--- NOTE | 2020-08-09 19:05 | PM.IMPN ---
Progress Note: A&P Assessment and Plan (1) COVID-19 virus infection: Code(s): U07.1 - COVID-19 Status: Acute Assessment and Plan: 08/07/20 13:45 Continue With Decadron, REMdesivir, albuterol inhaler, titrate oxygen on Airvo as needed, and incentive spirometer. We discussed vitamin C and zinc but the patient is stating he does not want to take those at this time. I explained to the patient that he needs to limit his activity and do pronation every 2 hours. The patient insists on getting up and his oxygen level dropped down the 85% when he got up in the room. The patient is on high-flow at this time. He is slowly recovering from getting up. I explained that the patient needs to use his urinal at the bedside. The patient is very insistent on getting up. I explained that the patient has higher oxygen demand needs to stay in bed. I also offered him a Rodriguez catheter. We had discussed intubation as well. The patient stated that he would be intubated but does not want to live in a vegetative state. I ordered Tylenol for the fever or mild pain. Incentive spirometer. Albuterol inhaler. The patient stated that he tested positive at home with a home test from [email or web address]. 07/31 patient was started on dexamethasone on 07/30 05/16 and Remdesivir 05/11 patient still requiring 15 L high-flow nasal cannula and complains of shortness of breath and fatigue, patient has agreed to take convalescent plasma will also give vitamin-C and D as well as zinc, and start Symbicort. will continue to monitor and further recommendation to follow 08/01/20 patient was started on dexamethasone on 07/30 06/13 and Remdesivir 06/08 and received convalescent plasma today, also receiving symbicort, vitamin C and D as well as zinc, if there no improvement tomorrow, will increase dexamethasone to 20mg daily for 5 days, patient still requiring 15 L high-flow nasal cannula and complains of shortness of breath and fatigue,as well as poor appetite, I spoke with patient and gave he all the updates. 08/02/20 patient was started on dexamethasone on 07/30 07/14 and Remdesivir 07/09 and received convalescent plasma on 08/01 , also receiving symbicort, vitamin C and D as well as zinc, there is not improvement in patient oxygen requirement, will increase dexamethasone to 20mg daily today 08/02 for next 5 days, and continue to monitor and plan. 08/03 patient was started on dexamethasone on 07/30 07/14, today increase dexamethasone to 20mg daily for 1/5days and patient will complete 5 days course of Remdesivir today 08/08, will continue for another 5 days,and received convalescent plasma on 08/01 , also receiving symbicort, vitamin C and D as well as zinc, there is not much improvement in patient oxygen requirement, will consult diabetes education coordinator and further recommendation to follow 08/04 on 08/03 late night rapid responce was called and was hypoxic BIPAP was placed by the noctornist and transfer the patient to ICU, patient was seen by manager user experience. patient was started on dexamethasone on 07/30 07/14, on 08/03 increase dexamethasone to 20mg daily for 2/5days and patient completed 5 days course of Remdesivir on 08/03 continued for additional 5 days, on 08/04 09/13 and received convalescent plasma on 08/01. patient is progressively getting worse and now requiring BIPAP, patient will be seen by pulmonology and appreciate. 08/05 today patient was more hypoxic and was using accessory muscles seen by manager user experience recommended intubation for which patient and his agree and patient was intubated currently on vent unable to provide any review of symptom, seen by manager user experience and appreciate, patient was started on dexamethasone on 07/30 07/14, on 08/03 increase dexamethasone to 20mg daily for 3/5days and patient completed 5 days course of Remdesivir on 08/03 continued for additional 5 days, on 08/04 10/13 and received convalescent plasma on 08/01. 08/06, 08/05 patient's symptoms were or worsen and patient was intubated on v
--- NOTE | 2020-08-09 19:53 | PM.PNCARD ---
Progress Note: A&P Assessment and Plan (1) Atrial flutter with rapid ventricular response: Code(s): I48.92 - Unspecified atrial flutter Status: Acute Assessment and Plan: Unfortunately the patient continues to have a flutter RVR despite amiodarone boluses and drip, digoxin, and metoprolol. Failed cardioversion is initially; possibility he would stay in NSR now he has been on amiodarone for 1.5 days but he is so ill and on so many pressors I doubt it. Has been on Eliquis since he 1 and atrial flutter. Will give another bolus of amiodarone tonight, and review with Dr. Hare who will be covering tomorrow. (2) Shock: Code(s): R57.9 - Shock, unspecified Status: Acute Assessment and Plan: On multiple pressors (3) Pneumonia due to 2019 novel coronavirus: Code(s): U07.1 - COVID-19; J12.82 - Pneumonia due to coronavirus disease 2019 Status: Acute Assessment and Plan: With respiratory failure Subjective Date/time seen: 08/09/20 19:53 Interval history: FU atrial flutter. Patient without prior history of heart disease has developed atrial flutter with a rapid ventricular response 08/08/2020 early a.m. and did not maintained sinus rhythm despite 3 cardioversions. Heart rate is somewhat better after boluses of amiodarone and a amiodarone drip but still has RVR.No sustained response to doses of IV metoprolol or digoxin. Started on Eliquis 08/08/2020. Date of service 08/09/2020: Patient remains very ill, on a ventilator with FiO2 of 90%, on vasopressin and Levophed 30 mics. Unfortunately has remained in atrial flutter rate 148, only transient mild responses to IV digoxin and metoprolol today, still on amiodarone 1 milligram/minute. Renal function worsening Review of Systems Review of Systems: Narrative: Obtained from EMR and the patient's nurses, as per history ROS unobtainable: Yes unobtainable due to endotracheal tube and unobtainable due to mental status Exam Narrative: Exam Narrative: Severely ill male sedated with multiple tubes and lines, intubated Const: General: comfortable and no acute distress HENMT: Mouth: Yes moist mucous membranes Eyes: General: appearance normal, both eyes and all related structures Neck: Neck: supple Resp: Effort & Inspection: abnormal respiratory effort (Tachypneic) Auscultation: clear to auscultation bilaterally Cardio: Rate: tachycardic Heart sounds: no murmurs GI: GI Palp: Yes Soft to palpation and No Tenderness to palpation present (GI) Skin: General skin exam: erythema (Areas of ecchymosis noted) Neuro: Cognition (Neuro): abnormal cognition Other: Sedated Extrem: General: edema (Mild edema) Psych: Mental Status: mental status grossly abnormal Affect: No normal affect Objective Data Vital Signs Vital Signs: Vital Signs - 24 hr 08/08/20 20:00 08/08/20 20:12 08/08/20 21:43 Temperature 101.9 F H Pulse Rate 143 H 146 H 149 H Respiratory Rate 30 H 30 H Blood Pressure 103/59 L 101/60 Pulse Oximetry 95 08/08/20 21:45 08/08/20 22:00 08/08/20 22:55 Temperature 99.4 F Pulse Rate 149 H 148 H 149 H Respiratory Rate 30 H 30 H Blood Pressure 105/62 103/61 Pulse Oximetry 93 92 08/08/20 23:00 08/08/20 23:16 08/08/20 23:18 Temperature Pulse Rate 154 H 148 H 148 H Respiratory Rate 30 H 30 H 30 H Blood Pressure 104/62 Pulse Oximetry 08/08/20 23:19 08/08/20 23:52 08/08/20 23:56 Temperature Pulse Rate 152 H Respiratory Rate Blood Pressure 105/64 106/63 Pulse Oximetry 93 08/09/20 00:00 08/09/20 00:17 08/09/20 00:23 Temperature 102.2 F H 102.2 F H Pulse Rate 137 H 154 H Respiratory Rate 30 H 30 H Blood Pressure 106/63 Pulse Oximetry 93 08/09/20 01:50 08/09/20 02:00 08/09/20 02:03 Temperature 99.8 F H Pulse Rate 150 H 136 H
--- NOTE | 2020-08-09 19:57 | PHAR ---
CALLED RN ABOUT FENTANYL DRIP RATE CHANGED TO 150 ML/HR - TOTAL VOLUME ALSO ENTERED INCORRECTLY. RATE WAS AGAIN CHANGED TO 150 ML/HR- CALLED AGAIN. RN SAID THERE WAS NO OTHER WAY TO CORRECT THE ORDER SO I REVIEWED IT (WITHOUT CHANGING THE RATE TO 150 ML/HR WAS ENTERED)
[2020-08-09] MEDS: CISATRACURIUM BESYLATE 200 MG in DEXTROSE 5% 80 ML 10.11 ML IV CONT (20:09)
[2020-08-09] MEDS: VASOPRESSIN INJ 100 UNITS in DEXTROSE 5% 95 ML IV CONT (20:10)
[2020-08-09] MEDS: AMIODARONE 150 MG/D5W 100 ML 150 MG/100 ML BAG 600 MG IV CONT (20:35)
[2020-08-09 20:46] LABS: Glucose Point of Care 232 (65-105)
[2020-08-10] VITALS (43 sets, daily range): BP systolic 99–121; BP diastolic 49–69; PULSE 126–149; RESP 30; TEMP 37.2–38.6; O2SAT 73–91
[2020-08-10 00:14] LABS: Digoxin 1.9 ng/mL (0.8-2.0)
[2020-08-10] MEDS: INSULIN ASPART (*BKC) 100 UNITS/ML SUB-Q ×2 (01:20→16:47)
[2020-08-10 01:31] LABS: Glucose Point of Care 213 (65-105)
[2020-08-10] MEDS: AMIODARONE 360 MG/D5W 200 ML 360 MG/200 ML BAG 33.33 MG IV CONT ×3 (03:15→15:41)
[2020-08-10] MEDS: METOPROLOL TARTRATE INJ 5 MG/5 ML VIAL IV PUSH ×3 (03:15→15:36)
[2020-08-10 04:30] LABS: Alveolar/Arterial O2 Gradient 577.5 mmHg; Base Excess ABG 5.2 mEq/l (+/-2.0); Carboxyhemoglobin 0.3 % THb (0-2.0); Fractional Inspired Oxygen 100 %; HCO3 ABG 33.3 mEq/l (22.0-26.0); Methemoglobin ABG 0.5 %THb (0-1.5); Oxygen Content ABG 14.5 %vol (16.0-22.0); Oxygen Saturation ABG 90.7 % (95.0-100.0); PO2 ABG 66.9 mmHg (80.0-100.0); PO2 FiO2 Ratio Arterial Blood 0.67 %; Reduced Hemoglobin 7.2 %THb (0-5.0); Total Hemoglobin 11.2 g/dL (12.0-18.0); pH ABG 7.304 (7.350-7.450)
[2020-08-10 04:33] LABS: Device VENTILATOR; Modified Allen's Test Pass; PCO2 ABG 68.6 mmHg (35.0-45.0); Site Drawn ARTLINE
[2020-08-10 04:34] LABS: Arterial Blood Gas PEEP 12 cmH2O; Arterial Blood Gas Tidal Volume 510 ml; Arterial Blood Gas Vent Mode CMV; Arterial Blood Gas Ventilator rate 30 /MIN
[2020-08-10] MEDS: CISATRACURIUM BESYLATE 200 MG in DEXTROSE 5% 80 ML 10.11 ML IV CONT ×2 (05:13→13:10)
[2020-08-10] MEDS: NOREPINEPHRINE 8 MG/D5W 250 ML 8 MG/250 ML BAG 30 MG IV CONT (05:13)
[2020-08-10] MEDS: FENTANYL 2,500MCG/NS250ML(*CRX 2,500 MCG/250 ML BAG 15 MCG IV CONT (05:14)
[2020-08-10] MEDS: MIDAZOLAM 100MG/NS 100ML(*CRX) 100 MG/100 ML BAG 6 MG IV CONT (05:15)
[2020-08-10] MEDS: CENTRAL LINE FLUSH 10 ML IV PUSH ×2 (05:17→13:13)
[2020-08-10 05:26] LABS: Basophils Percent Auto 0.2 % (0.2-1.2); Hematocrit 33.2 % (42.0-52.0); Hemoglobin 10.4 g/dL (14.0-18.0); Immature Granulocyte Absolute 0.58 K/mm3 (0.00-0.031); Lymphocytes Absolute Auto 0.72 K/mm3 (0.9-3.2); Lymphocytes Percent Auto 3.7 % (18.3-44.2); Mean Corpuscular HGB Conc 31.3 g/dl (32-36); Mean Corpuscular Hemoglobin 31.5 pg (26-34); Mean Corpuscular Volume 100.6 fl (80-100); Mean Platelet Volume 13.3 fl (7.4-10.4); Monocytes Absolute Auto 0.6 K/mm3 (0.1-0.6); Monocytes Percent Auto 3.3 % (2.6-8.5); Neutrophils Absolute Auto 17.3 K/mm3 (1.3-6.7); Neutrophils Percent Auto 89.8 % (45.5-73.1); Nucleated Red Blood Cells Absolute Auto 0.1 K/mm3 (0.0-0.012); Nucleated Red Blood Cells Perc 0.5 % (0.0-0.2); Platelet Count Result 55 k/mm3 (150-375); Red Cell Distribution Width 13.5 % (11.5-14.5); White Blood Count 19.2 K/mm3 (4.5-10.0)
[2020-08-10] MEDS: ALBUMIN HUMAN 25% 25 GM/100 ML 100 ML IVPB ×2 (05:29→13:11)
[2020-08-10 05:51] LABS: Alanine Aminotransferase 23 U/L (4-50); Albumin Level 3.1 g/dL (3.5-5.1); Alkaline Phosphatase 45 U/L (38-126); Anion Gap 3 mmol/L (8-16); Aspartate Amino Transferase 27 U/L (17-59); Bilirubin,Total 1.5 mg/dL (0.2-1.3); Blood Urea Nitrogen 112 mg/dL (9-20); Calcium 7.5 mg/dL (8.4-10.2); Carbon Dioxide 39 mmol/L (22-30); Chloride 96 mmol/L (98-107); Estimated CRCL calculation 28 ml/min; Estimated Glomerular Filt Rate 25; Glucose 180 mg/dL (75-110); Magnesium 3.1 mg/dL (1.6-2.3); Phosphorus 4.5 mg/dL (2.5-4.5); Potassium 5.8 mmol/L (3.4-5.0); Sodium 138 mmol/L (137-145)
--- NOTE | 2020-08-10 07:32 | PM.PNCARD ---
Progress Note: A&P Additional Plan 75-year-old man with: Persistent atrial flutter with RVR which had its onset is he is respiratory status has deteriorated because of glaser virus pneumonia. There are no other medical options for treating this that would seem reasonable. Radiofrequency ablation/AV node modification would be an option if we were at a facility with any electrophysiology lab. Given the current situation and DNR status that does not appear to be realistic/reasonable option. I will therefore try again later today to electrically cardiovert him in the hopes that a couple of days of amiodarone treatment might result in a more successful outcome. Agree that his prognosis is poor and current status is DNR. Len Hare MD [facility] Subjective Date/time seen: Date of service: 08/10/20 07:32 Interval history: FU atrial flutter. Patient without prior history of heart disease has developed atrial flutter with a rapid ventricular response 08/08/2020 early a.m. and did not maintained sinus rhythm despite 3 cardioversions. Heart rate is somewhat better after boluses of amiodarone and a amiodarone drip but still has RVR.No sustained response to doses of IV metoprolol or digoxin. Started on Eliquis 08/08/2020. Date of service 08/10/2020: Patient remains intubated sedated on a ventilator in the ICU. Clinical situation appears to be slowly deteriorating because of extensive glaser virus pneumonia. Cardiac issue was persistent atrial flutter with RVR despite beta-apple, digoxin and intravenous amiodarone. Exam Narrative: Exam Narrative: Severely ill male sedated with multiple tubes and lines, intubated Const: General: comfortable, no acute distress and confusion (Sedated) Orientation/consciousness: confusion (Sedated) HENMT: Mouth: Yes moist mucous membranes Eyes: General: appearance normal, both eyes and all related structures Neck: Neck: supple and no JVD Thyroid: thyroid normal Carotids: no bruits Lymphatic: lymphadenopathy not noted Resp: Effort & Inspection: abnormal respiratory effort (Tachypneic) Auscultation: clear to auscultation bilaterally and diminished lung sounds Cardio: Rate: regular rate and tachycardic Rhythm: regular rhythm Heart sounds: no gallops and no murmurs Other: Heart sounds are nearly inaudible GI: Inspection: non-distended Skin: General skin exam: erythema (Areas of ecchymosis noted) Lesions: lesion noted (Some bruises noted, on Thatch and arms) Neuro: General: confusion (Sedated) Cognition (Neuro): abnormal cognition Other: Sedated Extrem: General: edema (Mild edema) and no pedal edema Other: Toes cool, not dusky, the left dorsalis pedis pulse barely palpable other pedal pulses not palpable Psych: Mental Status: mental status grossly abnormal Affect: No normal affect Objective Data Vital Signs Vital Signs: Vital Signs - 24 hr 08/09/20 08:00 08/09/20 08:29 08/09/20 08:51 Temperature 36.8 C Pulse Rate 152 H 154 H 155 H Respiratory Rate 30 H 30 H Blood Pressure 106/55 L Pulse Oximetry 94 93 08/09/20 08:59 08/09/20 09:00 08/09/20 09:31 Temperature Pulse Rate 155 H 154 H 154 H Respiratory Rate 30 H Blood Pressure 105/66 98/52 L Pulse Oximetry 08/09/20 09:32 08/09/20 09:50 08/09/20 09:55 Temperature Pulse Rate 155 H 155 H 151 H Respiratory Rate Blood Pressure 105/66 82/42 L 84/47 L Pulse Oximetry 08/09/20 10:00 08/09/20 10:49 08/09/20 11:00 Temperature Pulse Rate 150 H 151 H 151 H Respiratory Rate 30 H 30 H Blood Pressure 91/51 L 96/51 L Pulse Oximetry 93 92 08/09/20 11:57 08/09/20 12:00 08/09/20 12:01 Temperature 38.4 C H Pulse Rate 150 H 151 H 151 H Respiratory Rate 30 H 30 H Blood Pressure 101/51 L 100/51 L Pulse Oximetry 92 08/09/20 12:19 08/09/20 12:20 08/09/20 13:00 Temperature 38.4 C H Pulse Rate 140 H 139 H Respiratory Rate 30 H 30 H Blood Pressure 106/52 L Pulse Oximetry 08/09
[2020-08-10] MEDS: ASCORBIC ACID 500 MG TABLET PO (08:50)
[2020-08-10] MEDS: APIXABAN 5 MG TABLET PO (08:50)
[2020-08-10] MEDS: PANTOPRAZOLE SODIUM IV 40 MG VIAL IV PUSH (08:50)
[2020-08-10] MEDS: CHOLECALCIFEROL 1,000 UNITS TABLET 1000 UNITS PO (08:50)
[2020-08-10] MEDS: ASPIRIN 325 MG TABLET PO (08:50)
[2020-08-10] MEDS: ZINC SULFATE 220 MG CAPSULE PO (08:50)
[2020-08-10] MEDS: DEXAMETHASONE SOD PHOS INJ 4 MG/ML VIAL 6 MG IV PUSH (08:50)
[2020-08-10] MEDS: polyethylene glycoL 3350 17 GM POWD.PACK PO (08:50)
[2020-08-10] MEDS: DEXTROSE 50% 25 GM/50 ML SYRINGE IV PUSH ×2 (08:51→15:07)
[2020-08-10] MEDS: CALCIUM GLUC 1,000 MG/NS 50 ML 1,000 MG/50 ML BAG 100 MG IVPB (08:51)
[2020-08-10] MEDS: SODIUM POLYSTYRENE SULFONONATE 15 GM/60 ML BTL 30 GM PO (08:51)
[2020-08-10] MEDS: INSULIN HUMAN REGULAR (*BKC) 100 UNITS/ML 10 UNITS IV PUSH ×2 (08:54→15:08)
[2020-08-10] MEDS: INSULIN GLARGINE (*BKC) 100 UNITS/ML 20 UNITS SUB-Q (08:54)
[2020-08-10 09:11] LABS: Glucose Point of Care 143 (65-105)
--- NOTE | 2020-08-10 11:13 | WPDINTPN ---
Progress Note: A&P Assessment and Plan (1) Acute respiratory failure with hypoxia: Code(s): J96.01 - Acute respiratory failure with hypoxia Status: Acute Assessment and Plan: Acute respiratory failure secondary to COVID-19 pneumonia Failure noninvasive therapy and was intubated on 08/05/2020, currently on low tidal volume strategy for ARDS physiology, 6 mL per kg of predicted body weight -over last 24 hours increased oxygen requirement with FiO2 had to be increased to 100% and peep increased to 14 this morning -ABG and chest x-ray reviewed -permissive hypercapnia -will re-attempt prone position once patient is hemodynamically stable -continue bronchodilators and pulmicort -sedation with fentanyl and Versed infusion, also on Nimbex for chemical paralysis and ventilator synchrony (2) Pneumonia due to 2019 novel coronavirus: Code(s): U07.1 - COVID-19; J12.82 - Pneumonia due to coronavirus disease 2019 Status: Acute Assessment and Plan: COVID-19 pneumonia -SARS-CoV-2 PCR positive on 07/21 -continue droplet, airborne, contact isolation and precautions -patient on dexamethasone (initiated on 07/31). Now at 6 milligram per day dosing -continue Remdesivir (initiated on 07/30). Patient was on 2nd course of Remdesivir. I discontinued it on 08/08 in light of worsening renal function as there is no proven benefit of extended course -patient also received convalescent plasma on 07/31 -inflammatory markers are persistently elevated, will trend intermittently (3) Atrial flutter with rapid ventricular response: Code(s): I48.92 - Unspecified atrial flutter Status: Acute Assessment and Plan: I gave patient adenosine 6 mg and 12 mg 08/08 morning which showed patient was in atrial flutter with RVR He was started on amiodarone infusion last night. He failed 4x attempts of cardioversion Discuss with cardiology yesterday. Digoxin was added. Amiodarone infusion was continue. Even Precedex was added but did not help. Lopressor IV Persistent tachycardia. Discussed with cardiology today and he he will re-attempt cardioversion today since patient now has been on amiodarone. His TSH came back low suggestive of hyperthyroidism. Pending T3 and T4. Added IV Lopressor but has not made any improvement On therapeutic dose Eliquis (4) Fever: Code(s): R50.9 - Fever, unspecified Status: Acute Assessment and Plan: On and off fever Continue empiric antibiotic therapy in form of vancomycin and cefepime UA did not suggest UTI. No increase or change in respiratory secretions. Chest x-ray also did not significantly changed Procalcitonin level is normal Blood culture sent and negative till now (5) RICO (acute kidney injury): Code(s): N17.9 - Acute kidney failure, unspecified Status: Acute Assessment and Plan: Creatinine continue to worsen along with uremia Not on IV fluids at this time due to COVID pneumonia and severe hypoxia Normal CK level Nephrology following Hyperkalemia treated with meds-see below I spoke to patient's yesterday and she indicated the patient would not want dialysis. I will again discussed with her today to confirm. If family chooses to proceed with dialysis then we may need to initiate but he may not tolerate due to uncontrolled a flutter and shock requiring 2 vasopressors and may need to be transferred to outside facility for CRRT (6) Thrombocytopenia: Code(s): D69.6 - Thrombocytopenia, unspecified Status: Acute Assessment and Plan: Gradually worsening thrombocytopenia. Likely multifactorial Low probability of hit as per 4T criteria Patient was on Lovenox and was switched to DVT prophylactic dose off Fondaparinux. Later patient went into atrial flutter with RVR was started on therapeutic dose of Eliquis. Patient is otherwise at high risk of DVT due to elevated D-dimer from COVID-19 pneumonia. Will hold Eliquis only if platelets a
--- NOTE | 2020-08-10 11:38 | PCDIET ---
Nutrition Follow-Up Complete: Inadequate oral intake related to poor appetite and inability to consume foods orally as evidence by NPO diet order and 0% intake Total intake will meet estimated kcal and protein needs Goal: Goal met; continue goal Pt current nutrition is Vital 1.2 at 65ml/hr Nutrition recommendation: agree Last recorded weight is 103.4 kg, up from assessed wt of 96.1kg (+842 I/O) Bowel Motility: NO BM since 08/03; miralax on board, recommend addition of Reglan Labs Reviewed:WBC up to 19.2 from 11.4 yesterday, K 5.8, Mg 3.1, GFR 25, Glucose 180 Meds Noted: Albumin, Zinc, Fentanyl, Protonix, Miralax, Vitamin D, Nimbex, Vasopressin, Levophed, Protonix, Vitamin C, Dexamethasone Additional Notes: Pt planned for cardioversion today; enteral nutrition held. Pt has been tolerating nutrition. No BM. Recommend addition of prokinetic to help promote bowel contraction. K oxalate given today to help reduce potassium. If kidney function continues to decline, nutrition change to Nepro 1.8 at 45ml/hr would be appropriate to provide 80g protein, 1782 kcals and reduced potassium. We will continue to monitor enteral nutrition tolerance, weight, BMs, labs every t/f.
[2020-08-10 12:27] LABS: Free T4 Free Thyroxine 1.05 ng/mL (0.78-2.19)
[2020-08-10] MEDS: ACETAMINOPHEN ELIXIR 325 MG/10.15 ML UDC 650 MG PO (13:12)
[2020-08-10] MEDS: NOREPINEPHRINE 8 MG/D5W 250 ML 8 MG/250 ML BAG 28.13 MG IV CONT (13:26)
--- NOTE | 2020-08-10 13:28 | PM.PNNEP ---
Progress Note: A&P Assessment and Plan (1) RICO (acute kidney injury): Code(s): N17.9 - Acute kidney failure, unspecified Status: Acute Assessment and Plan: The patient has acute kidney injury. urine electrolytes are pre renal. Urine eosinophils negative most likely RICO is due to low blood pressure and ATN his creatinine is a little bit higher. Still making some urine. No need for dialysis. He probably would not tolerate conventional dialysis. I talked with Dr. Hughes. He is having discussions with the family about comfort care. They refuse dialysis. (2) Pneumonia due to 2019 novel coronavirus: Code(s): U07.1 - COVID-19; J12.82 - Pneumonia due to coronavirus disease 2019 Status: Acute Assessment and Plan: Patient is getting room does severe and Dexamethasone. He is getting considerable supportive care with ventilator pressors etc. (3) Shock: Code(s): R57.9 - Shock, unspecified Status: Acute Assessment and Plan: Patient is on norepinephrine at 16 mics and also vasopressin at 0.04 mics. blood cultures are negative. He is on broad-spectrum antibiotics. (4) Hyperthyroidism: Code(s): E05.90 - Thyrotoxicosis, unspecified without thyrotoxic crisis or storm Status: Acute Assessment and Plan: TSH is low but T4 Is normal and T3 is pending (5) Atrial flutter with rapid ventricular response: Code(s): I48.92 - Unspecified atrial flutter Status: Acute Assessment and Plan: heart rate still running in the 130s and 140s. On amiodarone And p.r.n. metoprolol. (6) Hyperglycemia: Code(s): R73.9 - Hyperglycemia, unspecified Status: Acute Assessment and Plan: On insulin sliding scale (7) Hyperkalemia: Code(s): E87.5 - Hyperkalemia Status: Acute Assessment and Plan: Potassium is mildly high today. He received some Kayexalate, insulin, bicarb.. (8) History of prostate cancer: Code(s): Z85.46 - Personal history of malignant neoplasm of prostate Status: Acute Subjective Date/time seen: 08/10/20 13:28 Interval history: Gage is still on the ventilator. On maximum settings but O2 sat is still in the high 80s. On 2 pressors and blood pressure is barely under control. Review of Systems Cardiovascular: Cardiovascular: Reports no additional cardiovascular complaints Respiratory: Respiratory: Reports no additional respiratory complaints Gastrointestinal: Gastrointestinal: Reports no additional gastrointestinal complaints Genitourinary: Genitourinary: Reports no additional male genitourinary complaints Exam Narrative: Exam Narrative: Ill-looking gentleman on the ventilator with multiple drips. skin no rash head ncat lungs Course cor fast heart rate, reg no rub abd BS+ nontender and soft ext no edema. Objective Data Vital Signs Vital Signs: Vital Signs - 24 hr 08/09/20 13:46 08/09/20 14:00 08/09/20 14:40 Temperature Pulse Rate 136 H 137 H 135 H Respiratory Rate 30 H 30 H Blood Pressure 109/53 L 109/53 L Pulse Oximetry 92 92 08/09/20 14:44 08/09/20 14:53 08/09/20 14:56 Temperature Pulse Rate 139 H 144 H 144 H Respiratory Rate Blood Pressure 101/53 L 109/56 L Pulse Oximetry 08/09/20 16:00 08/09/20 16:05 08/09/20 16:08 Temperature 38.4 C H Pulse Rate 147 H 147 H 147 H Respiratory Rate 30 H 30 H 30 H Blood Pressure 107/54 L 108/54 L Pulse Oximetry 91 08/09/20 16:09 08/09/20 16:56 08/09/20 17:00 Temperature Pulse Rate 147 H 148 H 148 H Respiratory Rate 30 H Blood Pressure 107/54 L 107/76 Pulse Oximetry 92 08/09/20 18:00 08/09/20 18:27 08/09/20 18:38 Temperature 38.3 C H 38.3 C H Pulse Rate 147 H 148 H Respiratory Rate 30 H 30 H Blood Pressure 109/54 L 107/54 L Pulse Oximetry 91 08/09/20 18:40 08/09/20 18:41 08/09/20 19:23 Temperature Pulse Rate 8 L 14
[2020-08-10 13:40] LABS: Glucose Point of Care 196 (65-105)
[2020-08-10 14:10] LABS: Blood Urea Nitrogen 121 mg/dL (9-20); Calcium 7.8 mg/dL (8.4-10.2); Carbon Dioxide > 40 mmol/L (22-30); Chloride 94 mmol/L (98-107); Estimated CRCL calculation 23 ml/min; Estimated Glomerular Filt Rate 20; Glucose 192 mg/dL (75-110); Potassium 6.5 mmol/L (3.4-5.0); Sodium 137 mmol/L (137-145)
[2020-08-10] MEDS: SODIUM BICARBONATE 8.4% 50 MEQ/50 ML SYRINGE IV PUSH (15:07)
--- NOTE | 2020-08-10 16:06 | PM.IMPN ---
Progress Note: A&P Assessment and Plan (1) COVID-19 virus infection: Code(s): U07.1 - COVID-19 Status: Acute Assessment and Plan: 08/07/20 13:45 Continue With Decadron, REMdesivir, albuterol inhaler, titrate oxygen on Airvo as needed, and incentive spirometer. We discussed vitamin C and zinc but the patient is stating he does not want to take those at this time. I explained to the patient that he needs to limit his activity and do pronation every 2 hours. The patient insists on getting up and his oxygen level dropped down the 85% when he got up in the room. The patient is on high-flow at this time. He is slowly recovering from getting up. I explained that the patient needs to use his urinal at the bedside. The patient is very insistent on getting up. I explained that the patient has higher oxygen demand needs to stay in bed. I also offered him a Rodriguez catheter. We had discussed intubation as well. The patient stated that he would be intubated but does not want to live in a vegetative state. I ordered Tylenol for the fever or mild pain. Incentive spirometer. Albuterol inhaler. The patient stated that he tested positive at home with a home test from [employer]. 07/31 patient was started on dexamethasone on 07/30 05/16 and Remdesivir 05/11 patient still requiring 15 L high-flow nasal cannula and complains of shortness of breath and fatigue, patient has agreed to take convalescent plasma will also give vitamin-C and D as well as zinc, and start Symbicort. will continue to monitor and further recommendation to follow 08/01/20 patient was started on dexamethasone on 07/30 06/13 and Remdesivir 06/08 and received convalescent plasma today, also receiving symbicort, vitamin C and D as well as zinc, if there no improvement tomorrow, will increase dexamethasone to 20mg daily for 5 days, patient still requiring 15 L high-flow nasal cannula and complains of shortness of breath and fatigue,as well as poor appetite, I spoke with patient and gave he all the updates. 08/02/20 patient was started on dexamethasone on 07/30 07/14 and Remdesivir 07/09 and received convalescent plasma on 08/01 , also receiving symbicort, vitamin C and D as well as zinc, there is not improvement in patient oxygen requirement, will increase dexamethasone to 20mg daily today 08/02 for next 5 days, and continue to monitor and plan. 08/03 patient was started on dexamethasone on 07/30 07/14, today increase dexamethasone to 20mg daily for 1/5days and patient will complete 5 days course of Remdesivir today 08/08, will continue for another 5 days,and received convalescent plasma on 08/01 , also receiving symbicort, vitamin C and D as well as zinc, there is not much improvement in patient oxygen requirement, will consult sales merchandise associate and further recommendation to follow 08/04 on 08/03 late night rapid responce was called and was hypoxic BIPAP was placed by the noctornist and transfer the patient to ICU, patient was seen by mathematics academic chair. patient was started on dexamethasone on 07/30 07/14, on 08/03 increase dexamethasone to 20mg daily for 2/5days and patient completed 5 days course of Remdesivir on 08/03 continued for additional 5 days, on 08/04 09/13 and received convalescent plasma on 08/01. patient is progressively getting worse and now requiring BIPAP, patient will be seen by pulmonology and appreciate. 08/05 today patient was more hypoxic and was using accessory muscles seen by mathematics academic chair recommended intubation for which patient and his agree and patient was intubated currently on vent unable to provide any review of symptom, seen by mathematics academic chair and appreciate, patient was started on dexamethasone on 07/30 07/14, on 08/03 increase dexamethasone to 20mg daily for 3/5days and patient completed 5 days course of Remdesivir on 08/03 continued for additional 5 days, on 08/04 10/13 and received convalescent plasma on 08/01. 08/06, 08/05 patient's symptoms were or worsen and patient was intubated on v
[2020-08-10 16:46] LABS: Glucose Point of Care 256 (65-105)
[2020-08-10 16:47] LABS: Glucose Point of Care 274 (65-105)
[2020-08-10] MEDS: MORPHINE SULFATE INJ (*CRX) 10 MG/ML AMP 5 MG IV PUSH (20:07)
[2020-08-10] MEDS: LORazepam INJ (*CRX) 2 MG/ML VIAL IV PUSH (20:09)
--- NOTE | 2020-08-10 20:23 | PC.NURSE ---
1943- Spoke with family. Questions and concerns answered, agreeable to proceed with terminal wean. 2007- Patient terminally weaned. 2016-Time of .
--- NOTE | 2020-08-10 21:30 | PC.NURSE ---
2130- Patient has been cleared from avionics systems technician. All lines removed from patient.
--- NOTE | 2020-08-11 09:59 | PM.DDS ---
Discharge Sum: Prov Provider Primary care physician: Davian Peña, Admitting provider: Pawel Danielson MD Consults: 08/03/20 Consult to Physician Routine Comment: Consulting Provider: Darío Back Reason for consultation: needing batista placement - batista and coude attempts failed by RN's Has provider been notified: Yes 08/03/20 14:15 Consult to Physician Routine Comment: Consulting Provider: Len Zambrano call center support consultant/MD group to consult: Juan Manuel Bush, Telecommunications Specialist Reason for consultation: COVID-19 Has provider been notified: Yes 08/03/20 21:47 Consult to Physician Routine Comment: Consulting Provider: Hetal Rodgers call center support consultant/MD group to consult: Dr. Rodgers Reason for consultation: Acute hypoxic respiratory failure, COVID Has provider been notified: Yes 08/08/20 Consult to Physician Routine Comment: CALLED OFFICE WITH CONSULT INFORMATION Consulting Provider: Manuela Acosta call center support consultant/MD group to consult: Cardiology Reason for consultation: Atrial Flutter Has provider been notified: Yes 08/09/20 Consult to Physician Routine Comment: OFFICE NOTIFIED OF CONSULT Consulting Provider: Mina Morton call center support consultant/MD group to consult: nepholrogy Reason for consultation: RICO Has provider been notified: Yes Discharge Sum: Diag PCOD (1) COVID-19 virus infection: Code(s): U07.1 - COVID-19 Status: Acute Assessment and Plan: (2) Acute respiratory failure with hypoxia: Code(s): J96.01 - Acute respiratory failure with hypoxia Status: Acute (3) Seasonal allergies: Code(s): J30.2 - Other seasonal allergic rhinitis Status: Chronic (4) Chronic GERD: Code(s): K21.9 - Gastro-esophageal reflux disease without esophagitis Status: Chronic Assessment and Plan: 08/07/20 13:45 Continue With Decadron, REMdesivir, albuterol inhaler, titrate oxygen on Airvo as needed, and incentive spirometer. We discussed vitamin C and zinc but the patient is stating he does not want to take those at this time. I explained to the patient that he needs to limit his activity and do pronation every 2 hours. The patient insists on getting up and his oxygen level dropped down the 85% when he got up in the room. The patient is on high-flow at this time. He is slowly recovering from getting up. I explained that the patient needs to use his urinal at the bedside. The patient is very insistent on getting up. I explained that the patient has higher oxygen demand needs to stay in bed. I also offered him a Batista catheter. We had discussed intubation as well. The patient stated that he would be intubated but does not want to live in a vegetative state. I ordered Tylenol for the fever or mild pain. Incentive spirometer. Albuterol inhaler. The patient stated that he tested positive at home with a home test from [employer] 07/31 patient was started on dexamethasone on 07/30 05/16 and Remdesivir 05/11 patient still requiring 15 L high-flow nasal cannula and complains of shortness of breath and fatigue, patient has agreed to take convalescent plasma will also give vitamin-C and D as well as zinc, and start Symbicort. will continue to monitor and further recommendation to follow 08/01/20 patient was started on dexamethasone on 07/30 06/13 and Remdesivir 06/08 and received convalescent plasma today, also receiving symbicort, vitamin C and D as well as zinc, if there no improvement tomorrow, will increase dexamethasone to 20mg daily for 5 days, patient still requiring 15 L high-flow nasal cannula and complains of shortness of breath and fatigue,as well as poor appetite, I spoke with patient and gave he all the updates. 08/02/20 patient was started on dexamethasone on 07/30 07/14 and Remdesivir 07/09 and received convalescent plasma on 08/01 , also receiving symbicort, vitamin C and D as well as zinc, there is not improvement in patient oxygen requirement, wi
[2020-08-15 21:11] LABS: Triiodothyronine T3 Free 1.8 pg/mL (2.3-4.2)
== END 2020-08-10 20:16 | disposition expired | DRG 207 ==
LOC: ANHED 20:28 → ANHIMU 21:06 → ANHICU 08-03 21:43
PROVIDERS: Internal Medicine; Internal Medicine Nephrology; Nurse Practitioner; Admitting Provider Family Medicine; Emergency Provider Emergency Medicine; PCP Internal Medicine; Visit Provider Hospitalist
DX: U07.1 COVID-19 (principal); J96.01 Acute respiratory failure with hypoxia; J12.82 Pneumonia due to coronavirus disease 2019; A41.89 Other specified sepsis; R65.21 Severe sepsis with septic shock; N17.9 Acute kidney failure, unspecified; I48.92 Unspecified atrial flutter; D69.6 Thrombocytopenia, unspecified; Z66 Do not resuscitate; E87.5 Hyperkalemia; I10 Essential (primary) hypertension; E05.90 Thyrotoxicosis, unspecified without thyrotoxic crisis or storm; R73.9 Hyperglycemia, unspecified; K59.00 Constipation, unspecified; J30.2 Other seasonal allergic rhinitis; N39.46 Mixed incontinence; K21.9 Gastro-esophageal reflux disease without esophagitis; Z79.899 Other long term (current) drug therapy; Z85.46 Personal history of malignant neoplasm of prostate; Z88.1 Allergy status to other antibiotic agents
CPT/HCPCS: 36415; 36430; 36569; 36600; 71045; 71275; 80048; 80053; 80162; 81001; 82375; 82550; 82565; 82570; 82728; 82805; 82948; 83050; 83605; 83615; 83735; 84100; 84145; 84156; 84300; 84439; 84443; 84460; 84481; 85025; 85027; 85055; 85380; 85610; 85730; 85999; 86022; 86140; 86900; 86901; 87040; 93005; 93306; 94002; 94003; 94640; 96375; 99285; A9270; C1751; C9113; J0131; J0153; J0282; J0610; J0692; J1100; J1160; J1650; J1652; J1815; J2060; J2250; J2270; J2704; J2997; J3010; J3370; J7030; J7040; J7050; P9047; P9059; Q9967